=== PATIENT | male | born 1960 | race Two or more races ===

== ENCOUNTER 2016-10-19 05:10 | Emergency (ER) | payer MEDICARE ==
[~2016-10-19] VITALS: Ht 175.3 cm; Wt 104.3 kg
[~2016-10-19 05:10] MED LIST: 1ST CHOICE LAN1 EACH MC; ACCU-CHEK COMB1 EACH MC; ACCU-CHEK1 EAC5 MC; ANTI-ITCH56 GM CUTAN; ASPIRIN81 MG ORAL; BACITRACIN1 APPLIC TOPIC; IBUPROFEN600 MG ORAL; KEFLEX500 MG ORAL; METFORMIN HCL1000 M1 ORAL; METFORMIN HCL500 M1 ORAL; NORCO 5-325 TA1 EAC1 ORAL; NOVOLIN 70/305 UNIT1 SUBQ; NOVOLOG100 UNIT/3; PEPCID20 MG ORAL; PERCOCET 5-3251 EACH ORAL; TRAMADOL HCL50 MG ORAL
--- NOTE | 2016-10-19 05:36 | Emergency Room Report ---
History of Present Illness General Chief Complaint: Abdominal Pain Source: Patient Present Illness HPI Is a 56-year-old male with history of diabetes. He presents with chief complaint abdominal pain. Does have vomiting and diarrhea. Pain localized to the bilateral flanks. No urinary complaint. No fever or chills. Onset for 2 days. Pain is 7/10. He also has fever or chills. Similar symptom in the past. No other complaint. Allergies: Coded Allergies: No Known Allergies (Verified Allergy, Unknown, 05/12/11) Patient History Past Medical History: see triage record, old chart reviewed, DM Past Surgical History: other Pertinent Family History: none Social History: Denies: smoking Immunizations: other Reviewed Nursing Documentation: PMH: Agreed, PSxH: Agreed Nursing Documentation-PMH Hx Hypertension: Yes Hx Diabetes: Yes Hx Cancer: No Hx Gastrointestinal Problems: No Hx Neurological Problems: Yes Hx Dizziness: Yes Hx Headaches: Yes Review of Systems Eye: Denies: blurred vision, eye pain ENT: Denies: ear pain, nose congestion, throat swelling Respiratory: Denies: cough, shortness of breath Cardiovascular: Denies: chest pain, palpitations Gastrointestinal: Reports: abdominal pain, diarrhea, nausea, vomiting Musculoskeletal: Denies: back pain, joint pain Skin: Denies: rash Neurological: Denies: headache, numbness Endocrine: Denies: increased thirst, increased urine Hematologic/Lymphatic: Denies: easy bruising All Other Systems: negative except mentioned in HPI Physical Exam Vital Signs Date Time Temp Pulse Resp B/P Pulse Ox O2 Delivery O2 Flow Rate FiO2 10/19/16 05:11 98.1 93 18 120/74 98 Room Air vitals normal Sp02 EP Interpretation: reviewed, normal General Appearance: well appearing, no apparent distress, alert Head: normocephalic, atraumatic Eyes: bilateral eye EOMI, bilateral eye PERRL ENT: hearing grossly normal, normal pharynx Neck: full range of motion, supple, no meningismus Respiratory: chest non-tender, lungs clear, normal breath sounds Cardiovascular #1: regular rate, rhythm, no murmur Gastrointestinal: normal bowel sounds, no mass, no organomegaly, no bruit, non- distended, tenderness - Diffuse Musculoskeletal: back normal, gait/station normal, normal range of motion Neurologic: alert, oriented x3 Psychiatric: mood/affect normal Skin: warm/dry Medical Decision Making Diagnostic Impression: Primary Impression: Abdominal pain of unknown etiology Additional Impression: Hyperglycemia due to type 2 diabetes mellitus Qualified Codes: E11.65 - Type 2 diabetes mellitus with hyperglycemia; Z79.4 - jail (current) use of insulin ER Course Patient presents with abdominal pain. CT scan unremarkable. Blood sugars under control but not in DKA. Insulin given here. We'll discharge home. He felt better now. Lab Results Impression labs show elevated glucose CT/MRI/US Diagnostic Results CT/MRI/US Diagnostic Results : Imaging Test Ordered: CT abdomen and pelvis Impression no acute process per radiologist Last Vital Signs Date Time Temp Pulse Resp B/P Pulse Ox O2 Delivery O2 Flow Rate FiO2 10/19/16 05:11 98.1 93 18 120/74 98 Room Air Status: improved Disposition: HOME, SELF-CARE Condition: Stable Scripts Ibuprofen* (MOTRIN*) 600 Mg Tablet 600 MG ORAL THREE TIMES A DAY, #30 TAB 0 Refills Prov: MARSHA DURON M.D. 10/19/16 Patient Instructions: Abdominal Pain, Adult Additional Instructions: Followup with your DrStefania in 2-3 days. Take your medication for diabetes. Return if worse. MARSHA DURON M.D. Oct 19, 2016 05:36
[2016-10-19] MEDS ORDERED: Ketorolac 30mg Inj IV ONE (05:45)
[2016-10-19 06:14] LABS: BASOPHILS % (AUTO) 1.6 % (0.0-2.0); EOSINOPHILS % (AUTO) 1.6 % (0.0-3.0); LYMPHOCYTES % (AUTO) 32.4 % (20.0-45.0); MEAN CORPUSCULAR HEMOGLOBIN 32.1 PG (27.0-31.0); MEAN CORPUSCULAR HGB CONC 33.9 G/DL (32.0-36.0); MEAN CORPUSCULAR VOLUME 95 FL (80-99); MEAN PLATELET VOLUME 6.7 FL (6.5-10.1); MONOCYTES % (AUTO) 7.6 % (1.0-10.0); NEUTROPHILS % (AUTO) 56.8 % (45.0-75.0); PLATELET COUNT 219 K/UL (150-450); RED BLOOD COUNT 4.84 M/UL (4.70-6.10); RED CELL DISTRIBUTION WIDTH 10.9 % (11.6-14.8); WHITE BLOOD COUNT 7.8 K/UL (4.8-10.8)
[2016-10-19 06:25] LABS: ALANINE AMINOTRANSFERASE 13 U/L (3-41); ALBUMIN/GLOBULIN RATIO 1.4 (1.0-2.7); ANION GAP 13 (5-15); ASPARTATE AMINO TRANSFERASE 11 U/L (5-40); CALCIUM 9.2 mg/dL (8.6-10.2); CARBON DIOXIDE 23 mEQ/L (20-30); CHLORIDE 103 mEQ/L (98-107); CREATININE 0.8 mg/dL (0.7-1.2); GLOMERULAR FILTRATION RATE > 60 mL/min (>60); HEMOLYSIS 11; LIPASE 54 U/L (< 60); SODIUM 139 mEQ/L (135-145); TOTAL PROTEIN 6.8 g/dL (6.6-8.7)
[2016-10-19] MEDS ORDERED: IBUPROFEN600 MG ORAL (06:46)
[2016-10-19 06:52] VITALS: BP 122/76
--- NOTE | 2016-10-19 08:27 | Diagnostic Imaging Report ---
Indications: ./Flank pain Technique: Continuous helical CT imaging of the abdomen and pelvis was performed with automatic exposure control on a Siemens sensation [address] scanner. Axial, coronal, and sagittal images were reconstructed at 3 mm slice thickness. No oral or IV contrast was administered per protocol. CTDI volume(s): 19 mGy Total DLP: 1122 mGy-cm Findings: Comparison: April CT scan of the abdomen and pelvis 05/12/2011. Kidneys, ureters, urinary bladder demonstrate no intraparenchymal or intraluminal stones, collecting system or ureteral dilation, perinephric or periureteral stranding. Appendix not identified. Surgical clips adjacent to cecal tip.. The gastrointestinal tract is normal in caliber. No extraluminal gas or fluid collections are demonstrated. Scattered arterial mural calcifications. Vascular patency indeterminate. Remainder of visualized abdominopelvic anatomy demonstrates no other obvious abnormality, though lack of oral and IV contrast limits evaluation. No increased interstitial markings and dependent portions of both lung bases. Heart enlarged. Mild disc space narrowing with marginal osteophyte formation lumbar, lower thoracic spine.. IMPRESSION: No evidence of renal or ureteral stone, hydronephrosis or hydroureter. Evidence of previous appendectomy. No other evidence of acute abdominopelvic disease. Lack of oral and IV contrast limits evaluation, however, and subtle but potentially significant abnormalities may be missed. Repeat CT scan with full oral and IV contrast preparation recommended for more complete evaluation, as clinically indicated. Arteriosclerosis Pulmonary bibasal interstitial prominence, nonspecific, may be compressive Cardiomegaly Degenerative spondylosis Written preliminary report placed in PACS 10/19/2016 at [address] scanner at [facility] is accredited by the [employer] and the scans are performed using protocols designed to limit radiation exposure to as low as reasonably achievable to attain images of sufficient resolution adequate for diagnostic evaluation.
== END 2016-10-19 06:52 | disposition home or self-care (01) ==
LOC: EMR 05:34
DX: R10.9 Unspecified abdominal pain (principal); E11.65 Type 2 diabetes mellitus with hyperglycemia; I10 Essential (primary) hypertension
CPT/HCPCS: 36415; 74176; 80053; 83690; 85025; 96361; 96374; 96375; 99284; J1885; J2405

== ENCOUNTER 2018-01-09 16:31 | Inpatient (IN) | payer MEDICARE ==
[~2018-01-09] VITALS: Ht 175.3 cm; Wt 96.2 kg
[2018-01-09 17:37] LABS: BASOPHILS % (AUTO) 2.2 % (0.0-2.0); HEMATOCRIT 45.2 % (42.0-52.0); LYMPHOCYTES % (AUTO) 29.7 % (20.0-45.0); MEAN CORPUSCULAR VOLUME 92 FL (80-99); MONOCYTES % (AUTO) 7.4 % (1.0-10.0); NEUTROPHILS % (AUTO) 58.8 % (45.0-75.0); PLATELET COUNT 235 K/UL (150-450); RED BLOOD COUNT 4.92 M/UL (4.70-6.10); RED CELL DISTRIBUTION WIDTH 10.3 % (11.6-14.8); WHITE BLOOD COUNT 7.2 K/UL (4.8-10.8)
[2018-01-09 17:42] VITALS: BP 126/90
[2018-01-09 17:47] LABS: ANION GAP 6 mmol/L (5-15); BLOOD UREA NITROGEN 12 mg/dL (7-18); CALCIUM 8.8 MG/DL (8.5-10.1); CARBON DIOXIDE 30 MMOL/L (21-32); CHLORIDE 101 MMOL/L (98-107); CREATININE 0.9 MG/DL (0.55-1.30); POTASSIUM 4.1 MMOL/L (3.5-5.1); SODIUM 137 MMOL/L (136-145)
[2018-01-09] MEDS ORDERED: Ketorolac 30mg Inj IV ONE (18:00)
[2018-01-09 18:02] LABS: ALANINE AMINOTRANSFERASE 25 U/L (12-78); ALBUMIN 3.8 G/DL (3.4-5.0); ALKALINE PHOSPHATASE 84 U/L (46-116); ASPARTATE AMINO TRANSFERASE 11 U/L (15-37); BILIRUBIN,TOTAL 0.5 MG/DL (0.2-1.0); CREATINE KINASE 72 U/L (26-308)
[2018-01-09 18:17] LABS: APPEARANCE,URINE CLEAR; BILIRUBIN, URINE NEGATIVE (NEGATIVE); COLOR,URINE PALE YELLOW; GLUCOSE, URINE (UA) 4+ (NEGATIVE); KETONES,URINE NEGATIVE (NEGATIVE); LEUKOCYTE ESTERASE ,URINE NEGATIVE (NEGATIVE); NITRITE,URINE NEGATIVE (NEGATIVE); PH,URINE 7 (4.5-8.0); PROTEIN,URINE NEGATIVE (NEGATIVE); UROBILINOGEN,URINE NORMAL MG/DL (0.0-1.0)
[2018-01-09] MEDS ORDERED: Miralax 17gm pkt ORAL PRN (19:30)
[2018-01-09] MEDS ORDERED: Nitroglycerin Subl 0.4mg tab SL PRN (19:30)
[2018-01-09] MEDS ORDERED: Albuterol/Ipratropium 3ml neb HHN PRN (19:30)
[2018-01-09 19:50] VITALS: BP 159/61
--- NOTE | 2018-01-09 19:55 | Emergency Room Report ---
History of Present Illness General Chief Complaint: General Complaint Source: Patient Present Illness HPI Patient is a 57-year-old male who presented after increased lower extremity discomfort. Patient reports having increased pain to his left great toe. Patient prior history of diabetes. He was noted to have a markedly elevated blood sugar. Patient states that he had been not having any fever. He had intermittent chest discomfort which did not radiate. Patient was having increased swelling to his left lower extremity. He is a type II diabetic. Patient denies any recent fever. He denies other locations of discomfort this time. Allergies: Coded Allergies: No Known Allergies (Verified Allergy, Unknown, 05/12/11) Patient History Past Medical History: see triage record Reviewed Nursing Documentation: PMH: Agreed; PSxH: Agreed Nursing Documentation-PMH Hx Hypertension: Yes Hx Diabetes: Yes Hx Cancer: No Hx Gastrointestinal Problems: No Hx Neurological Problems: Yes Hx Dizziness: Yes Hx Headaches: Yes Review of Systems All Other Systems: negative except mentioned in HPI Physical Exam Vital Signs Date Time Temp Pulse Resp B/P (MAP) Pulse Ox O2 Delivery O2 Flow Rate FiO2 01/09/18 16:36 98.2 89 18 138/90 97 Room Air 98.2 Sp02 EP Interpretation: reviewed, normal General Appearance: normal inspection, well appearing, no apparent distress, alert, GCS 15, non-toxic Head: atraumatic ENT: normal ENT inspection, hearing grossly normal, normal voice Neck: normal inspection, full range of motion, supple, no bony tend Respiratory: normal inspection, lungs clear, normal breath sounds, no respiratory distress, no retraction, no wheezing Cardiovascular #1: regular rate, rhythm, no edema Gastrointestinal: normal inspection, normal bowel sounds, non tender, soft, no guarding, no hernia Genitourinary: no CVA tenderness Musculoskeletal: normal inspection, back normal, normal range of motion Neurologic: normal inspection, alert, oriented x3, responsive, retirement plan counselor III-XII nml as tested, speech normal Psychiatric: normal inspection, judgement/insight normal, mood/affect normal Skin: normal inspection, normal color, no rash Medical Decision Making Diagnostic Impression: Primary Impression: Hyperglycemia Additional Impression: Foot infection ER Course Patient presented for foot pain. Differential diagnoses include was was not limited to cellulitis, foreign body, fracture, plantar fasciitis, vascular insufficiency, sprain. Because of complexity of patient's case laboratory testing and imaging studies were ordered.X-ray imaging of the left foot 3 views interpreted by me showed normal bony alignment without evident fracture or dislocation.Chest x-ray one view interpreted by me indication pain showed normal cardiac size without evident infiltrate normal mediastinum no evident pneumothorax.The patient was discussed with Dr. Lieberman for admission due to covering physician Labs Test 01/09/18 17:00 01/09/18 17:20 01/09/18 17:50 White Blood Count 7.2 K/UL (4.8-10.8) Red Blood Count 4.92 M/UL (4.70-6.10) Hemoglobin 16.0 G/DL (14.2-18.0) Hematocrit 45.2 % (42.0-52.0) Mean Corpuscular Volume 92 FL (80-99) Mean Corpuscular Hemoglobin 32.5 PG (27.0-31.0) Mean Corpuscular Hemoglobin Concent 35.4 G/DL (32.0-36.0) Red Cell Distribution Width 10.3 % (11.6-14.8) Platelet Count 235 K/UL (150-450) Mean Platelet Volume 7.1 FL (6.5-10.1) Neutrophils (%) (Auto) 58.8 % (45.0-75.0) Lymphocytes (%) (Auto) 29.7 % (20.0-45.0) Monocytes (%) (Auto) 7.4 % (1.0-10.0) Eosinophils (%) (Auto) 2.0 % (0.0-3.0) Basophils (%) (Auto) 2.2 % (0.0-2.0) Sodium Level 137 MMOL/L (136-145) Potassium Level 4.1 MMOL/L (3.5-5.1) Chloride Level 101 MMOL/L (98-107) Carbon Dioxide Level 30 MMOL/L (21-32) Anion Gap 6 mmol/L (5-15) Blood Urea Nitrogen 12 mg/dL (7-18) Creatinine 0.9 MG/DL (0.55-1.30) Estimat Glomerular Filtration Rate > 60 mL/min (>60) Glucose Level 381 MG/DL (74-106) Uric Acid 3.7 MG/DL (2.6-7.2) Calcium Level 8.8 MG/DL (8.5-10.1) Total Bilirubin 0.5 MG/DL (0.2-1.0) Aspartate Amino Transf (AST/SGOT) 11 U/L (15-37) Alanine Aminotransferase (ALT/SGPT) 25 U/L (12-78) Alkaline Phosphatase 84 U/L (46-116) Total Creatine Kinase 72 U/L (26-308) Creatine Kinase MB 1.0 NG/ML (0.0-3.6) Creatine Kinase MB Relative Index 1.3 Troponin I 0.000 ng/mL (0.000-0.056) Pro-B-Type Natriuretic Peptide 20 pg/mL (0-125) Total Protein 7.7 G/DL (6.4-8.2) Albumin 3.8 G/DL (3.4-5.0) Globulin 3.9 g/dL Albumin/Globulin Ratio 1.0 (1.0-2.7) Lactic Acid Level 1.80 mmol/L (0.66-2.22) Urine Color Pale yellow Urine Appearance Clear Urine pH 7 (4.5-8.0) Urine Specific [place] 1.005 (1.005-1.035) Urine Protein Negative (NEGATIVE) Urine Glucose (UA) 4+ (NEGATIVE) Urine Ketones Negative (NEGATIVE) Urine Occult Blood Negative (NEGATIVE) Urine Nitrite Negative (NEGATIVE) Urine Bilirubin Negative (NEGATIVE) Urine Urobilinogen Normal MG/DL (0.0-1.0) Urine Leukocyte Esterase Negative (NEGATIVE) EKG Diagnostic Results Rate: normal Rhythm: NSR ST Segments: no acute changes Rhythm Strip Diag. Results EP Interpretation: yes Rhythm: NSR, no PVC's, no ectopy, other - jpoint elevation Last Vital Signs Date Time Temp Pulse Resp B/P (MAP) Pulse Ox O2 Delivery O2 Flow Rate FiO2 01/09/18 18:01 98.2 01/09/18 17:42 61 18 126/90 97 Room Air Status: unchanged Disposition: ADMITTED INPATIENT Condition: Serious Referrals: NON PHYSICIAN (PCP) Laurent Johnston January 09, 2018 19:55
[2018-01-09] MEDS: Heparin 5000 units/ml inj SUBQ SCH (21:00)
[2018-01-09] MEDS: NovoLOG Insulin Flexpen SUBQ SCH (21:46)
[2018-01-09] MEDS: Cefepime HCl 2 GM in D5W 110 ML IV SCH (21:48)
[2018-01-09] MEDS: Vancomycin 1.5 GM/D5W 250ML IVPB SCH (22:35)
[2018-01-10] VITALS: BP 122/74
[2018-01-10] MEDS ORDERED: Vancomycin 1 GM in D5W 275 ML IV SCH (00:30)
[2018-01-10 04:00] VITALS: BP 133/82
[2018-01-10] MEDS: NovoLOG Insulin Flexpen SUBQ SCH ×6 (06:42→21:00)
[2018-01-10 08:00] VITALS: BP 119/76
[2018-01-10 08:02] LABS: BASOPHILS % (AUTO) 1.5 % (0.0-2.0); EOSINOPHILS % (AUTO) 2.8 % (0.0-3.0); HEMATOCRIT 42.6 % (42.0-52.0); HEMOGLOBIN 15.6 G/DL (14.2-18.0); LYMPHOCYTES % (AUTO) 34.2 % (20.0-45.0); MEAN CORPUSCULAR VOLUME 92 FL (80-99); MONOCYTES % (AUTO) 7.1 % (1.0-10.0); NEUTROPHILS % (AUTO) 54.5 % (45.0-75.0); PLATELET COUNT 218 K/UL (150-450); RED BLOOD COUNT 4.65 M/UL (4.70-6.10); RED CELL DISTRIBUTION WIDTH 10.2 % (11.6-14.8); WHITE BLOOD COUNT 6.4 K/UL (4.8-10.8)
[2018-01-10 08:19] LABS: ALANINE AMINOTRANSFERASE 22 U/L (12-78); ALBUMIN 3.4 G/DL (3.4-5.0); ALKALINE PHOSPHATASE 74 U/L (46-116); ANION GAP 6 mmol/L (5-15); ASPARTATE AMINO TRANSFERASE 9 U/L (15-37); BILIRUBIN,TOTAL 0.9 MG/DL (0.2-1.0); BLOOD UREA NITROGEN 11 mg/dL (7-18); CALCIUM 8.8 MG/DL (8.5-10.1); CARBON DIOXIDE 28 MMOL/L (21-32); CHLORIDE 105 MMOL/L (98-107); CREATININE 0.8 MG/DL (0.55-1.30); POTASSIUM 4.4 MMOL/L (3.5-5.1); SODIUM 139 MMOL/L (136-145)
[2018-01-10] MEDS ORDERED: Levemir Flexpen SUBQ SCH (09:00)
[2018-01-10] MEDS: Cefepime HCl 2 GM in D5W 110 ML IV SCH (09:18)
[2018-01-10] MEDS: Aspirin Baby 81mg ORAL SCH (09:20)
[2018-01-10] MEDS: Heparin 5000 units/ml inj SUBQ SCH ×2 (09:21→21:01)
[2018-01-10 12:00] VITALS: BP 133/80
[2018-01-10] MEDS: Vancomycin 1.5 GM/D5W 250ML IVPB SCH ×2 (12:11→21:55)
--- NOTE | 2018-01-10 12:12 | History & Physical ---
History and Physical History & Physicial Dictated for Int Med-Dr Lieberman no. [id number]. IRON ARSHAD January 10, 2018 12:12
[2018-01-10] MEDS: metFORMIN 500mg tab ORAL SCH ×2 (12:27→17:29)
--- NOTE | 2018-01-10 12:29 | Consultation ---
History of Present Illness General Date patient seen: January 10, 2018 Chief Complaint: General Complaint Reason for Consultation: chest pain Present Illness HPI 57-year-old male with hx of HTN, DM, diabetic neuropathy who presented after increased lower extremity discomfort with pain to his left great toe. He had a markedly elevated blood sugar. He had intermittent chest discomfort which did not radiate. He is admitted to telemetry for further work up. Allergies: Coded Allergies: No Known Allergies (Verified Allergy, Unknown, 05/12/11) Medication History Scheduled Aspirin* (Aspirin*), 81 MG ORAL DAILY, (Reported) Bacitracin (Bacitracin Zinc), 1 APPLIC TOPIC BID Famotidine (Pepcid), 20 MG ORAL DAILY Hydrocortisone 2% Cream (Anti-Itch 2% Cream), 1 APPLIC CUTAN BID Ibuprofen* (Motrin*), 600 MG ORAL THREE TIMES A DAY Metformin Hcl* (Metformin Hcl*), 1,000 MG ORAL BID, (Reported) Metformin Hcl* (Metformin Hcl*), 1,000 MG ORAL EVERY 12 HOURS, (Reported) Scheduled PRN Tramadol Hcl* (Ultram*), 50 MG ORAL Q6H PRN for For Pain Miscellaneous Medications Insulin Aspart* (Novolog*), 0 .ROUTE, (Reported) Durable Medical Equipment Blood-Glucose Meter, Drum-Type (Accu-Chek), 1 EACH MC BID, (DME) Lancets (1ST Choice Lancets), 1 EACH MC NEEDED, (DME) Patient History Healthcare decision maker Resuscitation status Full Code Advanced Directive on File Past Medical/Surgical History Past Medical/Surgical History: (1) Uncontrolled diabetes mellitus (2) Chest pain (3) Ulcer of toe due to diabetes (4) Tinnitus Review of Systems All Other Systems: negative except mentioned in HPI Physical Exam General Appearance: WD/WN, no apparent distress Lines, tubes and drains: peripheral HEENT: normocephalic, atraumatic Neck: non-tender, normal alignment Respiratory/Chest: chest wall non-tender, lungs clear Breasts: no masses Cardiovascular/Chest: normal peripheral pulses Abdomen: normal bowel sounds, non tender Genitourinary/Rectal: normal genital exam Extremities: normal range of motion Skin Exam: normal pigmentation Neurologic: supervisor composing room II-XII grossly normal Lymphatic: anterior cervical Last 24 Hour Vital Signs Date Time Temp Pulse Resp B/P (MAP) Pulse Ox O2 Delivery O2 Flow Rate FiO2 5/2/18 08:03 79 16 Room Air 21 01/10/18 04:00 97.4 72 19 133/82 96 Room Air 97.4 01/10/18 04:00 68 01/10/18 01:13 98.4 01/10/18 00:14 98.4 01/10/18 00:00 97.5 73 19 122/74 97 Room Air 97.5 01/10/18 00:00 81 01/09/18 21:00 77 01/09/18 20:41 98.4 65 18 159/61 97 Room Air 208.8 01/09/18 19:50 208.8 65 18 159/61 97 Room Air 208.8 01/09/18 18:01 98.2 01/09/18 17:42 98.2 61 18 126/90 97 Room Air 98.2 01/09/18 16:36 98.2 89 18 138/90 97 Room Air 98.2 Intake and Output 01/09/18 01/10/18 19:00 07:00 Intake Total 0 ml Output Total 700 ml Balance 0 ml -700 ml Intake Oral 0 ml Output Urine Total 700 ml # Voids 1 1 Laboratory Tests Test 01/09/18 17:00 01/09/18 17:20 01/09/18 17:50 01/10/18 06:50 White Blood Count 7.2 K/UL (4.8-10.8) 6.4 K/UL (4.8-10.8) Red Blood Count 4.92 M/UL (4.70-6.10) 4.65 M/UL (4.70-6.10) L Hemoglobin 16.0 G/DL (14.2-18.0) 15.6 G/DL (14.2-18.0) Hematocrit 45.2 % (42.0-52.0) 42.6 % (42.0-52.0) Mean Corpuscular Volume 92 FL (80-99) 92 FL (80-99) Mean Corpuscular Hemoglobin 32.5 PG (27.0-31.0) H 33.5 PG (27.0-31.0) H Mean Corpuscular Hemoglobin Concent 35.4 G/DL (32.0-36.0) 36.5 G/DL (32.0-36.0) H Red Cell Distribution Width 10.3 % (11.6-14.8) L 10.2 % (11.6-14.8) L Platelet Count 235 K/UL (150-450) 218 K/UL (150-450) Mean Platelet Volume 7.1 FL (6.5-10.1) 7.7 FL (6.5-10.1) Neutrophils (%) (Auto) 58.8 % (45.0-75.0) 54.5 % (45.0-75.0) Lymphocytes (%) (Auto) 29.7 % (20.0-45.0) 34.2 % (20.0-45.0) Monocytes (%) (Auto) 7.4 % (1.0-10.0) 7.1 % (1.0-10.0) Eosinophils (%) (Auto) 2.0 % (0.0-3.0) 2.8 % (0.0-3.0) Basophils (%) (Auto) 2.2 % (0.0-2.0) H 1.5 % (0.0-2.0) Sodium Level 137 MMOL/L (136-145) 139 MMOL/L (136-145) Potassium Level 4.1 MMOL/L (3.5-5.1) 4.4 MMOL/L (3.5-5.1) Chloride Level 101 MMOL/L (98-107) 105 MMOL/L (98-107) Carbon Dioxide Level 30 MMOL/L (21-32) 28 MMOL/L (21-32) Anion Gap 6 mmol/L (5-15) 6 mmol/L (5-15) Blood Urea Nitrogen 12 mg/dL (7-18) 11 mg/dL (7-18) Creatinine 0.9 MG/DL (0.55-1.30) 0.8 MG/DL (0.55-1.30) Estimat Glomerular Filtration Rate > 60 mL/min (>60) > 60 mL/min (>60) Glucose Level 381 MG/DL (74-106) H 296 MG/DL (74-106) H Uric Acid 3.7 MG/DL (2.6-7.2) Calcium Level 8.8 MG/DL (8.5-10.1) 8.8 MG/DL (8.5-10.1) Total Bilirubin 0.5 MG/DL (0.2-1.0) 0.9 MG/DL (0.2-1.0) Aspartate Amino Transf (AST/SGOT) 11 U/L (15-37) L 9 U/L (15-37) L Alanine Aminotransferase (ALT/SGPT) 25 U/L (12-78) 22 U/L (12-78) Alkaline Phosphatase 84 U/L (46-116) 74 U/L (46-116) Total Creatine Kinase 72 U/L (26-308) Creatine Kinase MB 1.0 NG/ML (0.0-3.6) Creatine Kinase MB Relative Index 1.3 Troponin I 0.000 ng/mL (0.000-0.056) Pending Pro-B-Type Natriuretic Peptide 20 pg/mL (0-125) Total Protein 7.7 G/DL (6.4-8.2) 6.9 G/DL (6.4-8.2) Albumin 3.8 G/DL (3.4-5.0) 3.4 G/DL (3.4-5.0) Globulin 3.9 g/dL 3.5 g/dL Albumin/Globulin Ratio 1.0 (1.0-2.7) 1.0 (1.0-2.7) Lactic Acid Level 1.80 mmol/L (0.66-2.22) Urine Color Pale yellow Urine Appearance Clear Urine pH 7 (4.5-8.0) Urine Specific [place] 1.005 (1.005-1.035) Urine Protein Negative (NEGATIVE) Urine Glucose (UA) 4+ (NEGATIVE) H Urine Ketones Negative (NEGATIVE) Urine Occult Blood Negative (NEGATIVE) Urine Nitrite Negative (NEGATIVE) Urine Bilirubin Negative (NEGATIVE) Urine Urobilinogen Normal MG/DL (0.0-1.0) Urine Leukocyte Esterase Negative (NEGATIVE) Hemoglobin A1c 10.1 % (4.3-6.0) H Height (Feet): 5 Height (Inches): 9.00 Weight (Pounds): 212 Medications Current Medications Medications (Trade) Dose Ordered Sig/Dixie Route PRN Reason Start Time Stop Time Status Last Admin Dose Admin Acetaminophen (Tylenol) 650 mg Q4H PRN ORAL Mild Pain/Temp > 100.5 5/2/18 03:30 02/08/18 19:29 01/10/18 00:14 Albuterol/ Ipratropium (Albuterol/ Ipratropium) 3 ml EVERY 4 HOURS PRN HHN Shortness of Breath 01/09/18 19:30 01/14/18 19:29 Aspirin (ASA) 81 mg DAILY ORAL 01/10/18 09:00 02/09/18 08:59 01/10/18 09:20 Cefepime HCl 2 gm/ Dextrose 110 ml @ 220 mls/hr EVERY 12 HOURS IV 01/09/18 21:00 01/16/18 20:59 01/10/18 09:18 Dextrose (Dextrose 50%) 25 ml STAT PRN IV Hypoglycemia 01/10/18 07:15 02/09/18 07:14 Dextrose (Dextrose 50%) 50 ml STAT PRN IV Hypoglycemia 01/10/18 07:15 02/09/18 07:14 Famotidine (Pepcid) 20 mg DAILY ORAL 01/10/18 09:00 02/09/18 08:59 01/10/18 09:19 Heparin Sodium (Porcine) (Heparin 5000 units/ml) 5,000 units EVERY 12 HOURS SUBQ 01/09/18 21:00 02/08/18 20:59 01/10/18 09:21 Insulin Aspart (NovoLOG) BEFORE MEALS AND HS SUBQ 01/09/18 21:00 02/08/18 20:59 01/10/18 06:42 Insulin Aspart (NovoLOG) 6 units NOVOTIAC SUBQ 01/10/18 11:50 02/09/18 11:49 Insulin Detemir (Levemir) 18 units DAILY SUBQ 01/10/18 09:00 02/09/18 08:59 01/10/18 09:22 Metformin HCl (Glucophage) 500 mg TIAC ORAL 01/10/18 11:30 02/09/18 11:29 Nitroglycerin (Ntg) 0.4 mg Q 5 MINS PRN SL Prn Chest Pain 01/09/18 19:30 02/08/18 19:29 Ondansetron HCl (Zofran) 4 mg Q6H PRN IVP Nausea & Vomiting 01/09/18 19:30 02/08/18 19:29 Polyethylene Glycol (Miralax) 17 gm DAILYPRN PRN ORAL Constipation 01/09/18 19:30 02/08/18 19:29 Temazepam (Restoril) 15 mg HSPRN PRN ORAL Insomnia 01/09/18 19:30 01/16/18 19:29 Vancomycin HCl/ Dextrose 250 ml @ 125 mls/hr Q12H IVPB 01/09/18 22:00 01/14/18 21:59 01/10/18 12:11 Assessment/Plan Problem List: (1) Chest pain ICD Codes: R07.9 - Chest pain, unspecified SNOMED: 17941948 (2) Ulcer of toe due to diabetes ICD Codes: E11.621 - Type 2 diabetes mellitus with foot ulcer; L97.509 - Non- pressure chronic ulcer of other part of unspecified foot with unspecified severity SNOMED: 72796860, 084084450, 207899308 (3) Uncontrolled diabetes mellitus ICD Codes: E11.65 - Type 2 diabetes mellitus with hyperglycemia SNOMED: 76165567, 515047018 Assessment/Plan serial ekg, troponin, echocardiogram low risk for PE wound care podiatry consult symptomatic treatment diabetic diet sliding scale, endo evaluation. Daniela Parra MD January 10, 2018 12:29
--- NOTE | 2018-01-10 12:34 | Cardiac Electrophysiology PN ---
Subjective Subjective [id number] Objective Last 24 Hour Vital Signs Date Time Temp Pulse Resp B/P (MAP) Pulse Ox O2 Delivery O2 Flow Rate FiO2 01/10/18 08:03 79 16 Room Air 21 01/10/18 04:00 97.4 72 19 133/82 96 Room Air 97.4 01/10/18 04:00 68 01/10/18 01:13 98.4 01/10/18 00:14 98.4 01/10/18 00:00 97.5 73 19 122/74 97 Room Air 97.5 01/10/18 00:00 81 01/09/18 21:00 77 01/09/18 20:41 98.4 65 18 159/61 97 Room Air 208.8 01/09/18 19:50 208.8 65 18 159/61 97 Room Air 208.8 01/09/18 18:01 98.2 01/09/18 17:42 98.2 61 18 126/90 97 Room Air 98.2 01/09/18 16:36 98.2 89 18 138/90 97 Room Air 98.2 Intake and Output 01/09/18 01/10/18 19:00 07:00 Intake Total 0 ml Output Total 700 ml Balance 0 ml -700 ml Intake Oral 0 ml Output Urine Total 700 ml # Voids 1 1 Laboratory Tests Test 01/09/18 17:00 01/09/18 17:20 01/09/18 17:50 01/10/18 06:50 White Blood Count 7.2 K/UL (4.8-10.8) 6.4 K/UL (4.8-10.8) Red Blood Count 4.92 M/UL (4.70-6.10) 4.65 M/UL (4.70-6.10) L Hemoglobin 16.0 G/DL (14.2-18.0) 15.6 G/DL (14.2-18.0) Hematocrit 45.2 % (42.0-52.0) 42.6 % (42.0-52.0) Mean Corpuscular Volume 92 FL (80-99) 92 FL (80-99) Mean Corpuscular Hemoglobin 32.5 PG (27.0-31.0) H 33.5 PG (27.0-31.0) H Mean Corpuscular Hemoglobin Concent 35.4 G/DL (32.0-36.0) 36.5 G/DL (32.0-36.0) H Red Cell Distribution Width 10.3 % (11.6-14.8) L 10.2 % (11.6-14.8) L Platelet Count 235 K/UL (150-450) 218 K/UL (150-450) Mean Platelet Volume 7.1 FL (6.5-10.1) 7.7 FL (6.5-10.1) Neutrophils (%) (Auto) 58.8 % (45.0-75.0) 54.5 % (45.0-75.0) Lymphocytes (%) (Auto) 29.7 % (20.0-45.0) 34.2 % (20.0-45.0) Monocytes (%) (Auto) 7.4 % (1.0-10.0) 7.1 % (1.0-10.0) Eosinophils (%) (Auto) 2.0 % (0.0-3.0) 2.8 % (0.0-3.0) Basophils (%) (Auto) 2.2 % (0.0-2.0) H 1.5 % (0.0-2.0) Sodium Level 137 MMOL/L (136-145) 139 MMOL/L (136-145) Potassium Level 4.1 MMOL/L (3.5-5.1) 4.4 MMOL/L (3.5-5.1) Chloride Level 101 MMOL/L (98-107) 105 MMOL/L (98-107) Carbon Dioxide Level 30 MMOL/L (21-32) 28 MMOL/L (21-32) Anion Gap 6 mmol/L (5-15) 6 mmol/L (5-15) Blood Urea Nitrogen 12 mg/dL (7-18) 11 mg/dL (7-18) Creatinine 0.9 MG/DL (0.55-1.30) 0.8 MG/DL (0.55-1.30) Estimat Glomerular Filtration Rate > 60 mL/min (>60) > 60 mL/min (>60) Glucose Level 381 MG/DL (74-106) H 296 MG/DL (74-106) H Uric Acid 3.7 MG/DL (2.6-7.2) Calcium Level 8.8 MG/DL (8.5-10.1) 8.8 MG/DL (8.5-10.1) Total Bilirubin 0.5 MG/DL (0.2-1.0) 0.9 MG/DL (0.2-1.0) Aspartate Amino Transf (AST/SGOT) 11 U/L (15-37) L 9 U/L (15-37) L Alanine Aminotransferase (ALT/SGPT) 25 U/L (12-78) 22 U/L (12-78) Alkaline Phosphatase 84 U/L (46-116) 74 U/L (46-116) Total Creatine Kinase 72 U/L (26-308) Creatine Kinase MB 1.0 NG/ML (0.0-3.6) Creatine Kinase MB Relative Index 1.3 Troponin I 0.000 ng/mL (0.000-0.056) Pending Pro-B-Type Natriuretic Peptide 20 pg/mL (0-125) Total Protein 7.7 G/DL (6.4-8.2) 6.9 G/DL (6.4-8.2) Albumin 3.8 G/DL (3.4-5.0) 3.4 G/DL (3.4-5.0) Globulin 3.9 g/dL 3.5 g/dL Albumin/Globulin Ratio 1.0 (1.0-2.7) 1.0 (1.0-2.7) Lactic Acid Level 1.80 mmol/L (0.66-2.22) Urine Color Pale yellow Urine Appearance Clear Urine pH 7 (4.5-8.0) Urine Specific [place] 1.005 (1.005-1.035) Urine Protein Negative (NEGATIVE) Urine Glucose (UA) 4+ (NEGATIVE) H Urine Ketones Negative (NEGATIVE) Urine Occult Blood Negative (NEGATIVE) Urine Nitrite Negative (NEGATIVE) Urine Bilirubin Negative (NEGATIVE) Urine Urobilinogen Normal MG/DL (0.0-1.0) Urine Leukocyte Esterase Negative (NEGATIVE) Hemoglobin A1c 10.1 % (4.3-6.0) Wyatt Serna MD January 10, 2018 12:34
--- NOTE | 2018-01-10 12:45 | Consultation ---
DATE OF CONSULTATION: 01/10/2018 ENDOCRINOLOGY CONSULTATION REFERRING PHYSICIAN: Des Lieberman M.D. REASON FOR CONSULTATION: Diabetes management. HISTORY OF PRESENT ILLNESS: The patient is a 57-year-old male with history of diabetes on metformin therapy as an outpatient, who presented to the hospital with great toe infection and cellulitis, admitted for observation and treatment. I was called to manage diabetes. PAST MEDICAL HISTORY: 1. Diabetes. 2. GERD. MEDICATIONS: Reviewed and reconciled. SOCIAL HISTORY: Denies any smoking, alcohol, or drug use. FAMILY HISTORY: Diabetes. REVIEW OF SYSTEMS: As per history of present illness. A 12-point of system reviewed. PHYSICAL EXAMINATION: VITAL SIGNS: Blood pressure 132/82, pulse of 72, temperature of 97.4 degrees, and respiratory rate of 19. HEENT: Pupils are equal and reactive to light and accommodation. Sclerae are anicteric. NECK: No JVD. HEART: Regular. LUNGS: Clear. ABDOMEN: Positive bowel sounds. EXTREMITIES: Lower extremities, toe inflamed, nonerythematous. No edema. LABORATORY VALUES: Sodium 137, potassium 4.1, chloride 101, bicarbonate 30, BUN 12, creatinine 0.9, and glucose 381. Lactic acid is normal. WBC 7.2, hemoglobin 16, hematocrit 45.2, and platelets of 235,000. DIAGNOSES: 1. Toe cellulitis. 2. Diabetes, out of control. PLAN: 1. Start metformin 500 mg t.i.d. 2. Start Levemir 18 units daily. 3. Start NovoLog 6 units before each meal. 4. NovoLog sliding scale insulin at bedtime is in order. 5. Check hemoglobin A1c. 6. Further adjustment according to the blood glucose values. 7. I will follow the patient during hospital stay. Thank you, Dr. Lieberman, for the courtesy of this consultation. Francois Jin M.D. DR: Lori JOB#: [id number] CC: BOGDAN
--- NOTE | 2018-01-10 15:31 | Cardiology Report ---
APPROVED REPORT EXAM: Two-dimensional and M-mode echocardiogram with Doppler and color Doppler. INDICATION Chest Pain M-Mode DIMENSIONS IVSd0.7 (0.7-1.1cm)Left Atrium (MM)4.7 (1.6-4.0cm) LVDd3.8 (3.5-5.6cm)Aortic Root3.2 (2.0-3.7cm) PWd1.2 (0.7-1.1cm)Aortic Cusp Exc.2.1 (1.5-2.0cm) LVDs1.8 (2.5-4.0cm) PWs1.4 cm Normal left ventricular chamber size, systolic function and wall motion. Left ventricular ejection fraction estimated to be 60 %. Mild left ventricular hypertrophy by 2-D. No evidence of pericardial effusion. All other cardiac chamber sizes are within normal limits. Focal aortic valve sclerosis with adequate cusp excursion. Thickened mitral valve leaflets with normal excursion. Mitral annulus and aortic root calcification. Normal pulmonic valve structure. Normal tricuspid valve structure. IVC at normal size with physiologic collapse. A color flow and spectral Doppler study was performed and revealed: Trace aortic regurgitation. Trace to mild mitral regurgitation. Mitral diastolic velocities suggest reduced left ventricular relaxation c/w mild LV diastolic dysfunction. Trace to mild tricuspid regurgitation. Tricuspid systolic velocities suggests peak right ventricular systolic pressure of 25 mmHg
--- NOTE | 2018-01-10 15:46 | Cardiology Report ---
APPROVED REPORT EKG Measurement Heart [id number] MA [id number] Normal sinus rhythm ST elevation, consider inferior injury or acute infarct Abnormal ECG
[2018-01-10 16:00] VITALS: BP 122/83
--- NOTE | 2018-01-10 16:23 | Consultation ---
History of Present Illness General Date patient seen: January 10, 2018 Time patient seen: 16:16 Chief Complaint: General Complaint Reason for Consultation: chest pain Present Illness HPI 57 y/o M with hx of DM2 w/ neuropathy, HTN, GERD presents to ED on 01/09 with increasing pain and swelling of L great toe, uncontrolled blood sugar, intermittent non-radiating chest discomfort. referred toe was red and had puruelent drainage but that has now improved significantly after IV abx. no prior hx of toe cellulitis/ulcer or oM Denies fever Allergies: Coded Allergies: No Known Allergies (Verified Allergy, Unknown, 05/12/11) Medication History Scheduled Aspirin* (Aspirin*), 81 MG ORAL DAILY, (Reported) Bacitracin (Bacitracin Zinc), 1 APPLIC TOPIC BID Famotidine (Pepcid), 20 MG ORAL DAILY Hydrocortisone 2% Cream (Anti-Itch 2% Cream), 1 APPLIC CUTAN BID Ibuprofen* (Motrin*), 600 MG ORAL THREE TIMES A DAY Metformin Hcl* (Metformin Hcl*), 1,000 MG ORAL BID, (Reported) Metformin Hcl* (Metformin Hcl*), 1,000 MG ORAL EVERY 12 HOURS, (Reported) Scheduled PRN Tramadol Hcl* (Ultram*), 50 MG ORAL Q6H PRN for For Pain Miscellaneous Medications Insulin Aspart* (Novolog*), 0 .ROUTE, (Reported) Durable Medical Equipment Blood-Glucose Meter, Drum-Type (Accu-Chek), 1 EACH MC BID, (DME) Lancets (1ST Choice Lancets), 1 EACH MC NEEDED, (DME) Patient History Healthcare decision maker Resuscitation status Full Code Advanced Directive on File Patient History Narrative Pmhx: as above Shx: Denies any smoking, alcohol, or drug use. Fhx: non contributory Review of Systems All Other Systems: negative except mentioned in HPI Physical Exam Physical Exam Narrative General Appearance: WD/WN, no apparent distress Lines, tubes and drains: peripheral HEENT: normocephalic, atraumatic Neck: non-tender, normal alignment Respiratory/Chest: chest wall non-tender, lungs clear Cardiovascular/Chest: normal peripheral pulses Abdomen: normal bowel sounds, non tender Genitourinary/Rectal: normal genital exam Extremities: normal range of motion Skin Exam: R 1st toe with callus on dorsal aspect- no currently drainage at this point, no erythema or swelling Last 24 Hour Vital Signs Date Time Temp Pulse Resp B/P (MAP) Pulse Ox O2 Delivery O2 Flow Rate FiO2 01/10/18 16:00 97.3 68 21 122/83 99 Room Air 97.3 01/10/18 12:00 65 01/10/18 12:00 97.9 65 20 133/80 97 Room Air 97.9 01/10/18 08:03 79 16 Room Air 21 01/10/18 08:00 97.5 72 20 119/76 99 Room Air 97.5 01/10/18 08:00 74 01/10/18 04:00 97.4 72 19 133/82 96 Room Air 97.4 01/10/18 04:00 68 01/10/18 01:13 98.4 01/10/18 00:14 98.4 01/10/18 00:00 97.5 73 19 122/74 97 Room Air 97.5 01/10/18 00:00 81 01/09/18 21:00 77 01/09/18 20:41 98.4 65 18 159/61 97 Room Air 208.8 01/09/18 19:50 208.8 65 18 159/61 97 Room Air 208.8 01/09/18 18:01 98.2 01/09/18 17:42 98.2 61 18 126/90 97 Room Air 98.2 01/09/18 16:36 98.2 89 18 138/90 97 Room Air 98.2 Intake and Output 01/09/18 01/10/18 19:00 07:00 Intake Total 0 ml Output Total 700 ml Balance 0 ml -700 ml Intake Oral 0 ml Output Urine Total 700 ml # Voids 1 1 Laboratory Tests Test 01/09/18 17:00 01/09/18 17:20 01/09/18 17:50 01/10/18 06:50 White Blood Count 7.2 K/UL (4.8-10.8) 6.4 K/UL (4.8-10.8) Red Blood Count 4.92 M/UL (4.70-6.10) 4.65 M/UL (4.70-6.10) L Hemoglobin 16.0 G/DL (14.2-18.0) 15.6 G/DL (14.2-18.0) Hematocrit 45.2 % (42.0-52.0) 42.6 % (42.0-52.0) Mean Corpuscular Volume 92 FL (80-99) 92 FL (80-99) Mean Corpuscular Hemoglobin 32.5 PG (27.0-31.0) H 33.5 PG (27.0-31.0) H Mean Corpuscular Hemoglobin Concent 35.4 G/DL (32.0-36.0) 36.5 G/DL (32.0-36.0) H Red Cell Distribution Width 10.3 % (11.6-14.8) L 10.2 % (11.6-14.8) L Platelet Count 235 K/UL (150-450) 218 K/UL (150-450) Mean Platelet Volume 7.1 FL (6.5-10.1) 7.7 FL (6.5-10.1) Neutrophils (%) (Auto) 58.8 % (45.0-75.0) 54.5 % (45.0-75.0) Lymphocytes (%) (Auto) 29.7 % (20.0-45.0) 34.2 % (20.0-45.0) Monocytes (%) (Auto) 7.4 % (1.0-10.0) 7.1 % (1.0-10.0) Eosinophils (%) (Auto) 2.0 % (0.0-3.0) 2.8 % (0.0-3.0) Basophils (%) (Auto) 2.2 % (0.0-2.0) H 1.5 % (0.0-2.0) Sodium Level 137 MMOL/L (136-145) 139 MMOL/L (136-145) Potassium Level 4.1 MMOL/L (3.5-5.1) 4.4 MMOL/L (3.5-5.1) Chloride Level 101 MMOL/L (98-107) 105 MMOL/L (98-107) Carbon Dioxide Level 30 MMOL/L (21-32) 28 MMOL/L (21-32) Anion Gap 6 mmol/L (5-15) 6 mmol/L (5-15) Blood Urea Nitrogen 12 mg/dL (7-18) 11 mg/dL (7-18) Creatinine 0.9 MG/DL (0.55-1.30) 0.8 MG/DL (0.55-1.30) Estimat Glomerular Filtration Rate > 60 mL/min (>60) > 60 mL/min (>60) Glucose Level 381 MG/DL (74-106) H 296 MG/DL (74-106) H Uric Acid 3.7 MG/DL (2.6-7.2) Calcium Level 8.8 MG/DL (8.5-10.1) 8.8 MG/DL (8.5-10.1) Total Bilirubin 0.5 MG/DL (0.2-1.0) 0.9 MG/DL (0.2-1.0) Aspartate Amino Transf (AST/SGOT) 11 U/L (15-37) L 9 U/L (15-37) L Alanine Aminotransferase (ALT/SGPT) 25 U/L (12-78) 22 U/L (12-78) Alkaline Phosphatase 84 U/L (46-116) 74 U/L (46-116) Total Creatine Kinase 72 U/L (26-308) Creatine Kinase MB 1.0 NG/ML (0.0-3.6) Creatine Kinase MB Relative Index 1.3 Troponin I 0.000 ng/mL (0.000-0.056) 0.000 ng/mL (0.000-0.056) Pro-B-Type Natriuretic Peptide 20 pg/mL (0-125) Total Protein 7.7 G/DL (6.4-8.2) 6.9 G/DL (6.4-8.2) Albumin 3.8 G/DL (3.4-5.0) 3.4 G/DL (3.4-5.0) Globulin 3.9 g/dL 3.5 g/dL Albumin/Globulin Ratio 1.0 (1.0-2.7) 1.0 (1.0-2.7) Lactic Acid Level 1.80 mmol/L (0.66-2.22) Urine Color Pale yellow Urine Appearance Clear Urine pH 7 (4.5-8.0) Urine Specific [place] 1.005 (1.005-1.035) Urine Protein Negative (NEGATIVE) Urine Glucose (UA) 4+ (NEGATIVE) H Urine Ketones Negative (NEGATIVE) Urine Occult Blood Negative (NEGATIVE) Urine Nitrite Negative (NEGATIVE) Urine Bilirubin Negative (NEGATIVE) Urine Urobilinogen Normal MG/DL (0.0-1.0) Urine Leukocyte Esterase Negative (NEGATIVE) Hemoglobin A1c 10.1 % (4.3-6.0) H Test 01/10/18 15:00 Troponin I 0.000 ng/mL (0.000-0.056) Height (Feet): 5 Height (Inches): 9.00 Weight (Pounds): 212 Medications Current Medications Medications (Trade) Dose Ordered Sig/Dixie Route PRN Reason Start Time Stop Time Status Last Admin Dose Admin Acetaminophen (Tylenol) 650 mg Q4H PRN ORAL Mild Pain/Temp > 100.5 01/10/18 03:30 02/08/18 19:29 01/10/18 00:14 Albuterol/ Ipratropium (Albuterol/ Ipratropium) 3 ml EVERY 4 HOURS PRN HHN Shortness of Breath 01/09/18 19:30 01/14/18 19:29 Aspirin (ASA) 81 mg DAILY ORAL 01/10/18 09:00 02/09/18 08:59 01/10/18 09:20 Cefepime HCl 2 gm/ Dextrose 110 ml @ 220 mls/hr EVERY 12 HOURS IV 01/09/18 21:00 01/16/18 20:59 01/10/18 09:18 Dextrose (Dextrose 50%) 25 ml STAT PRN IV Hypoglycemia 01/10/18 07:15 02/09/18 07:14 Dextrose (Dextrose 50%) 50 ml STAT PRN IV Hypoglycemia 01/10/18 07:15 02/09/18 07:14 Famotidine (Pepcid) 20 mg DAILY ORAL 01/10/18 09:00 02/09/18 08:59 01/10/18 09:19 Heparin Sodium (Porcine) (Heparin 5000 units/ml) 5,000 units EVERY 12 HOURS SUBQ 01/09/18 21:00 02/08/18 20:59 01/10/18 09:21 Insulin Aspart (NovoLOG) BEFORE MEALS AND HS SUBQ 01/09/18 21:00 02/08/18 20:59 01/10/18 12:32 Insulin Aspart (NovoLOG) 6 units NOVOTIAC SUBQ 01/10/18 11:50 02/09/18 11:49 01/10/18 12:31 Insulin Detemir (Levemir) 18 units DAILY SUBQ 01/10/18 09:00 02/09/18 08:59 01/10/18 09:22 Lisinopril (Zestril) 10 mg DAILY ORAL 01/11/18 09:00 02/10/18 08:59 Metformin HCl (Glucophage) 500 mg TIAC ORAL 01/10/18 11:30 02/09/18 11:29 01/10/18 12:27 Nitroglycerin (Ntg) 0.4 mg Q 5 MINS PRN SL Prn Chest Pain 01/09/18 19:30 02/08/18 19:29 Ondansetron HCl (Zofran) 4 mg Q6H PRN IVP Nausea & Vomiting 01/09/18 19:30 02/08/18 19:29 Polyethylene Glycol (Miralax) 17 gm DAILYPRN PRN ORAL Constipation 01/09/18 19:30 02/08/18 19:29 Temazepam (Restoril) 15 mg HSPRN PRN ORAL Insomnia 01/09/18 19:30 01/16/18 19:29 Vancomycin HCl/ Dextrose 250 ml @ 125 mls/hr Q12H IVPB 01/09/18 22:00 01/14/18 21:59 01/10/18 12:11 Assessment/Plan Assessment/Plan Abx: IV Vanco 01/09- CEfepime 01/09- Assessment: L 1st toe cellulitis; improving- patient no longer has purulent discharge and erythema as described by patient. Area of callous and no deep ulcer. Doubt OM -xray foot pending Afebrile, no leukocytosis -u/a neg Dm2 w/ neuropathy HTN GERD Plan: -Continue IV Vancomycin #2 and switch CEfepime to Ancef for cellulitis; will likely treat for 7-10 days unless evidence of OM on xray. -tomorrow can switch to PO Keflex 500mg qid and Bactrim DS 1tab bid -f/u cx -Monitor CBC/BMP, temperatures -podiatry eval -wound care/prevention per hosp protocol Thank you for this consultation. Will continue to follow along with you. Discussed with Leticia Medina M.D. January 10, 2018 16:23
--- NOTE | 2018-01-10 17:30 | History and Physical Report ---
DATE OF ADMISSION: 01/09/2018 CHIEF COMPLAINT: The patient is a 57-year-old male who presents with a chief complaint of elevated blood sugars and right first toe pain. HISTORY OF PRESENT ILLNESS: History of present illness began three days prior to admission. The patient noticed an ulcer of his right first toe. It was draining pus. The patient also had blood sugars of up to 380. The patient also was complaining of on and off chest pain. Chest pain was nonradiating. There was no radiation to the jaw or to the shoulder. The patient presented to [facility] emergency room. The patient was admitted for diabetic ulcer of the right first toe and hyperglycemia. REVIEW OF SYSTEMS: CONSTITUTIONAL: The patient denies weight loss or weight gain. The patient has fevers or chills. HEENT: The patient denies ear or throat pain. The patient denies headache. CARDIOVASCULAR: The patient complains of chest pain as above. The patient denies palpitations. ABDOMEN: The patient denies nausea, vomiting, diarrhea, or constipation. GENITOURINARY: The patient denies dysuria or increased frequency of urination. NEUROMUSCULAR: The patient complains of right great toe ulcer as above. The patient denies seizures or generalized weakness. PAST MEDICAL HISTORY: Significant for, 1. Type 2 diabetes. 2. Major depression. PAST SURGICAL HISTORY: Significant for appendectomy. CURRENT MEDICATIONS: 1. Metformin 1000 mg p.o. twice daily. 2. Insulin 70/30, 40 units subcutaneously twice daily. ALLERGIES: No known drug allergies. SOCIAL HISTORY: The patient is . The patient denies tobacco use. The patient admits to occasional social alcohol use. PHYSICAL EXAMINATION: VITAL SIGNS: Temperature 97.5 degrees, respirations 19, pulse 73, and blood pressure 122/74. GENERAL: The patient is well-developed, well-nourished, male, in no apparent distress. HEENT: Eyes, pupils are equal and responsive to light and accommodation. Extraocular movements are intact. NECK: Supple without lymphadenopathy. CHEST: Lungs are clear to auscultation bilaterally without wheezes or rales. CARDIOVASCULAR: Regular rhythm and rate. S1 and S2 are normal without murmurs, rubs, or gallops. ABDOMEN: Soft, nontender, and nondistended. Positive bowel sounds. No evidence of hepatosplenomegaly. Currently, no rebound or guarding noted. EXTREMITIES: Negative for clubbing or cyanosis. Negative for edema. There is an open ulcer of the right great toe. GENITOURINARY: Refused. EXTREMITIES: There is no edema noted. There is an approximate 1 cm ulcer of the right great toe. NEUROMUSCULAR: Cranial nerves II through XII grossly intact without focal deficits. Motor strength is 5/5 bilaterally. Deep tendon reflexes are 2+ plantar. LABORATORY AND DIAGNOSTIC DATA: WBC 7.2, hemoglobin 15.0, hematocrit 45.3, and platelets 235,000. Sodium 137, potassium 4.1, chloride 101, CO2 30, BUN 12, creatinine 0.9 and glucose elevated at 331. ASSESSMENT: This is a 57-year-old male, 1. Chest pain. 2. Right great toe diabetic ulcer. 3. Uncontrolled diabetes type 2. TREATMENT: 1. Chest pain. A Cardiology consultation has been obtained with Dr. Wyatt Retana. We will follow recommendation of Cardiology. 2. Right great toe ulcer. A Podiatry consultation has been obtained with Dr. Meyer. An Infectious Disease consultation has been obtained with Dr. Cortes. The patient will be started on empiric vancomycin and cefepime. 3. Uncontrolled diabetes type 2. An Endocrinology consultation has been obtained with Dr. Jin. Dustin Bailon M.D. DR: ALICIA JOB#: [id number] CC:
[2018-01-10 20:00] VITALS: BP 153/90
[2018-01-10] MEDS: ceFAZolin sod 1 GM in D5W 55 ML IVPB SCH (20:59)
--- NOTE | 2018-01-10 22:45 | Consultation ---
DATE OF CONSULTATION: 01/10/2018 CARDIOLOGY CONSULTATION CONSULTING PHYSICIAN: Wyatt Retana M.D. REFERRING PHYSICIAN: Des Lieberman M.D. REASON FOR CONSULTATION: Hypertension and palpitation. HISTORY OF PRESENT ILLNESS: The patient is a 57-year-old gentleman with history of hypertension and diabetes for 5 years with diabetic neuropathy, came to emergency room for increasing lower extremity discomfort with left great toe pain. The patient also felt palpitation that was persistent for about 5 minutes before he came to the hospital. He also had chest pain at the time that did not radiate. The patient was admitted and a Cardiology consultation was obtained for further evaluation and management. PAST MEDICAL HISTORY: 1. Hypertension. 2. Diabetes and diabetic neuropathy. 3. He denies prior myocardial infarction or coronary artery disease. FAMILY HISTORY: Noncontributory. SOCIAL HISTORY: He lives at home. Does not smoke or drink alcohol. REVIEW OF SYSTEMS: Review of systems was performed and was negative other than what was mentioned in the history of present illness. PHYSICAL EXAMINATION: VITAL SIGNS: Blood pressure is 133/82, pulse 72, respirations 18, and temperature 97.4 degrees. HEAD AND NECK: No JVD or carotid bruits. LUNGS: Clear. CARDIOVASCULAR: Regular S1 and S2 with no gallop or murmur. ABDOMEN: Soft. EXTREMITIES: No pitting edema, however, his toe has an ulcer on it. LABORATORY AND DIAGNOSTIC DATA: His EKG shows sinus rhythm with nonspecific T-wave abnormalities and prolonged QT. ASSESSMENT AND PLAN: 1. Chest pain at the time of palpitation that was brief. The patient denies any chest pain or shortness of breath at this time. We will completely rule out myocardial infarction protocol. His first troponin was negative. 2. History of hypertension. Especially in view of the patient's diabetes, I will start the patient on lisinopril 10 mg daily. Especially, the renal function is also within normal range. 3. Palpitation, that could be due to supraventricular tachycardia or premature atrial contractions or premature ventricular contractions. Watch the patient on telemetry. patient's diabetes better controlled, the patient would benefit from a stress test for further evaluation. 4. Uncontrolled diabetes. 5. Diabetic foot ulcer. Thank you very much, Dr. Lieberman, for allowing me to participate in the care of this patient. Please do not hesitate to contact me for any questions regarding my evaluation. Wyatt Retana M.D. DR: ЮЛИЯ JOB#: [id number] CC:
[2018-01-11] VITALS: BP 136/78
[2018-01-11 04:00] VITALS: BP 133/86
[2018-01-11 05:05] LABS: BASOPHILS % (AUTO) 1.6 % (0.0-2.0); EOSINOPHILS % (AUTO) 1.8 % (0.0-3.0); HEMATOCRIT 43.8 % (42.0-52.0); HEMOGLOBIN 16.5 G/DL (14.2-18.0); LYMPHOCYTES % (AUTO) 29.4 % (20.0-45.0); MEAN CORPUSCULAR VOLUME 91 FL (80-99); MONOCYTES % (AUTO) 6.9 % (1.0-10.0); NEUTROPHILS % (AUTO) 60.3 % (45.0-75.0); PLATELET COUNT 214 K/UL (150-450); RED BLOOD COUNT 4.83 M/UL (4.70-6.10); RED CELL DISTRIBUTION WIDTH 9.9 % (11.6-14.8); WHITE BLOOD COUNT 7.7 K/UL (4.8-10.8)
[2018-01-11 05:19] LABS: ANION GAP 8 mmol/L (5-15); BLOOD UREA NITROGEN 11 mg/dL (7-18); CARBON DIOXIDE 26 MMOL/L (21-32); CHLORIDE 103 MMOL/L (98-107); CHOLESTEROL 133 MG/DL (< 200); CREATININE 0.8 MG/DL (0.55-1.30); HDL CHOLESTEROL 32 MG/DL (40-60); POTASSIUM 3.7 MMOL/L (3.5-5.1); SODIUM 136 MMOL/L (136-145); TRIGLYCERIDES 123 MG/DL (30-150)
[2018-01-11] MEDS: ceFAZolin sod 1 GM in D5W 55 ML IVPB SCH ×2 (06:17→14:00)
[2018-01-11] MEDS: metFORMIN 500mg tab ORAL SCH ×3 (06:17→16:48)
[2018-01-11] MEDS: NovoLOG Insulin Flexpen SUBQ SCH ×7 (06:18→21:20)
--- NOTE | 2018-01-11 07:06 | General Progress Note ---
Assessment/Plan Problem List: (1) Ulcer of toe due to diabetes ICD Codes: E11.621 - Type 2 diabetes mellitus with foot ulcer; L97.509 - Non- pressure chronic ulcer of other part of unspecified foot with unspecified severity SNOMED: 59945050, 823180818, 923316433 (2) Uncontrolled diabetes mellitus ICD Codes: E11.65 - Type 2 diabetes mellitus with hyperglycemia SNOMED: 50993878, 891570673 Assessment/Plan increase Levemir to 23 units qam continue Novolog 6 units ac tid continue Metformin 500 mg tid continue NISS Subjective Allergies: Coded Allergies: No Known Allergies (Verified Allergy, Unknown, 05/12/11) All Systems: reviewed and negative except above Subjective events noted Objective Last 24 Hour Vital Signs Date Time Temp Pulse Resp B/P (MAP) Pulse Ox O2 Delivery O2 Flow Rate FiO2 01/11/18 04:00 98.0 64 20 133/86 98 Room Air 98.0 01/11/18 00:00 98.2 72 20 136/78 98 Room Air 98.2 01/11/18 00:00 72 01/10/18 20:00 73 01/10/18 20:00 97.7 69 20 153/90 97 Room Air 97.7 01/10/18 19:52 65 17 Room Air 21 01/10/18 16:00 75 01/10/18 16:00 97.3 68 21 122/83 99 Room Air 97.3 01/10/18 12:00 65 01/10/18 12:00 97.9 65 20 133/80 97 Room Air 97.9 01/10/18 08:03 79 16 Room Air 21 01/10/18 08:00 97.5 72 20 119/76 99 Room Air 97.5 01/10/18 08:00 74 Intake and Output 01/10/18 01/11/18 19:00 07:00 Intake Total 850 ml 720 ml Output Total 900 ml Balance -50 ml 720 ml Intake Oral 850 ml 720 ml Output Urine Total 900 ml # Voids 2 Laboratory Tests 01/10/18 15:00: Troponin I 0.000 01/11/18 02:35: Troponin I 0.000 01/11/18 04:20: White Blood Count 7.7, Red Blood Count 4.83, Hemoglobin 16.5, Hematocrit 43.8, Mean Corpuscular Volume 91, Mean Corpuscular Hemoglobin 34.1H, Mean Corpuscular Hemoglobin Concent 37.6H, Red Cell Distribution Width 9.9L, Platelet Count 214, Mean Platelet Volume 7.3, Neutrophils (%) (Auto) 60.3, Lymphocytes (%) (Auto) 29.4, Monocytes (%) (Auto) 6.9, Eosinophils (%) (Auto) 1.8, Basophils (%) (Auto ) 1.6, Prothrombin Time 10.1, Prothromb Time International Ratio 1.0, Sodium Level 136, Potassium Level 3.7, Chloride Level 103, Carbon Dioxide Level 26, Anion Gap 8, Blood Urea Nitrogen 11, Creatinine 0.8, Estimat Glomerular Filtration Rate > 60, Glucose Level 290H, Calcium Level 9.0, Pro-B-Type Natriuretic Peptide 27, Triglycerides Level 123, Cholesterol Level 133, LDL Cholesterol 88, HDL Cholesterol 32L, Cholesterol/HDL Ratio 4.2, Thyroid Stimulating Hormone (TSH) 0.712 Height (Feet): 5 Height (Inches): 9.00 Weight (Pounds): 212 General Appearance: no apparent distress Neck: normal alignment Cardiovascular: normal rate Respiratory/Chest: lungs clear Abdomen: normal bowel sounds Pelvis: normal external exam Objective Current Medications Medications (Trade) Dose Ordered Sig/Dixie Route PRN Reason Start Time Stop Time Status Last Admin Dose Admin Acetaminophen (Tylenol) 650 mg Q4H PRN ORAL Mild Pain/Temp > 100.5 01/10/18 03:30 02/08/18 19:29 01/10/18 00:14 Albuterol/ Ipratropium (Albuterol/ Ipratropium) 3 ml EVERY 4 HOURS PRN HHN Shortness of Breath 01/09/18 19:30 01/14/18 19:29 Aspirin (ASA) 81 mg DAILY ORAL 01/10/18 09:00 02/09/18 08:59 01/10/18 09:20 Cefazolin Sodium 1 gm/Dextrose 55 ml @ 110 mls/hr Q8HR IVPB 01/10/18 21:00 01/17/18 23:59 01/11/18 06:17 Dextrose (Dextrose 50%) 25 ml STAT PRN IV Hypoglycemia 01/10/18 07:15 02/09/18 07:14 Dextrose (Dextrose 50%) 50 ml STAT PRN IV Hypoglycemia 01/10/18 07:15 02/09/18 07:14 Famotidine (Pepcid) 20 mg DAILY ORAL 01/10/18 09:00 02/09/18 08:59 01/10/18 09:19 Heparin Sodium (Porcine) (Heparin 5000 units/ml) 5,000 units EVERY 12 HOURS SUBQ 01/09/18 21:00 02/08/18 20:59 01/10/18 21:01 Insulin Aspart (NovoLOG) BEFORE MEALS AND HS SUBQ 01/09/18 21:00 02/08/18 20:59 01/11/18 06:18 Insulin Aspart (NovoLOG) 6 units NOVOTIAC SUBQ 01/10/18 11:50 02/09/18 11:49 01/11/18 06:19 Insulin Detemir (Levemir) 18 units DAILY SUBQ 01/10/18 09:00 02/09/18 08:59 01/10/18 09:22 Lisinopril (Zestril) 10 mg DAILY ORAL 01/11/18 09:00 02/10/18 08:59 Metformin HCl (Glucophage) 500 mg TIAC ORAL 01/10/18 11:30 02/09/18 11:29 01/11/18 06:17 Nitroglycerin (Ntg) 0.4 mg Q 5 MINS PRN SL Prn Chest Pain 01/09/18 19:30 02/08/18 19:29 Ondansetron HCl (Zofran) 4 mg Q6H PRN IVP Nausea & Vomiting 01/09/18 19:30 02/08/18 19:29 Polyethylene Glycol (Miralax) 17 gm DAILYPRN PRN ORAL Constipation 01/09/18 19:30 02/08/18 19:29 Temazepam (Restoril) 15 mg HSPRN PRN ORAL Insomnia 01/09/18 19:30 01/16/18 19:29 Vancomycin HCl/ Dextrose 250 ml @ 125 mls/hr Q12H IVPB 01/09/18 22:00 01/14/18 21:59 01/10/18 21:55 Item Value Date Time Bedside Blood Glucose 240 mg/dl H 01/11/18 0630 Bedside Blood Glucose 181 mg/dl H 01/10/18 2100 Bedside Blood Glucose 185 mg/dl H 01/10/18 1729 Bedside Blood Glucose 229 mg/dl H 01/10/18 1232 Bedside Blood Glucose 289 mg/dl H 01/10/18 0922 PAUL MARIE January 11, 2018 07:06
[2018-01-11 08:00] VITALS: BP 144/92
[2018-01-11] MEDS: Lisinopril 10mg tab ORAL SCH (08:29)
[2018-01-11] MEDS: Aspirin Baby 81mg ORAL SCH (08:29)
[2018-01-11] MEDS: Heparin 5000 units/ml inj SUBQ SCH ×2 (08:31→21:17)
[2018-01-11] MEDS ORDERED: Levemir Flexpen SUBQ SCH (09:00)
[2018-01-11] MEDS: Vancomycin 1.5 GM/D5W 250ML IVPB SCH (10:04)
[2018-01-11 12:00] VITALS: BP 144/94
--- NOTE | 2018-01-11 12:13 | Pulmonology Progress Note ---
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 ROS Limited/Unobtainable: No Interval Events: no new complains Constitutional: Reports: no symptoms HEENT: Repors: no symptoms Allergies: Coded Allergies: No Known Allergies (Verified Allergy, Unknown, 05/12/11) Objective Last 24 Hour Vital Signs Date Time Temp Pulse Resp B/P (MAP) Pulse Ox O2 Delivery O2 Flow Rate FiO2 01/11/18 08:29 144/92 01/11/18 08:02 66 18 Room Air 21 01/11/18 08:00 84 01/11/18 08:00 98.0 64 20 144/92 98 Room Air 21 98.0 01/11/18 04:00 98.0 64 20 133/86 98 Room Air 98.0 01/11/18 04:00 67 01/11/18 00:00 98.2 72 20 136/78 98 Room Air 98.2 01/11/18 00:00 72 01/10/18 20:00 73 01/10/18 20:00 97.7 69 20 153/90 97 Room Air 97.7 01/10/18 19:52 65 17 Room Air 21 01/10/18 16:00 75 01/10/18 16:00 97.3 68 21 122/83 99 Room Air 97.3 Intake and Output 01/10/18 01/11/18 19:00 07:00 Intake Total 850 ml 720 ml Output Total 900 ml Balance -50 ml 720 ml Intake Oral 850 ml 720 ml Output Urine Total 900 ml # Voids 2 General Appearance: WD/WN HEENT: normocephalic, atraumatic Respiratory/Chest: chest wall non-tender, lungs clear, normal breath sounds Cardiovascular: normal peripheral pulses, normal rate Abdomen: normal bowel sounds, soft, non tender Extremities: no cyanosis, no clubbing 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 Microbiology Date/Time Source Procedure Growth Status 01/09/18 17:35 Blood Blood Culture - Preliminary NO GROWTH AFTER 24 HOURS Resulted 01/09/18 17:20 Blood Blood Culture - Preliminary NO GROWTH AFTER 24 HOURS Resulted Laboratory Tests 01/10/18 15:00: Troponin I 0.000 5/3/18 02:35: Troponin I 0.000 01/11/18 04:20: White Blood Count 7.7, Red Blood Count 4.83, Hemoglobin 16.5, Hematocrit 43.8, Mean Corpuscular Volume 91, Mean Corpuscular Hemoglobin 34.1H, Mean Corpuscular Hemoglobin Concent 37.6H, Red Cell Distribution Width 9.9L, Platelet Count 214, Mean Platelet Volume 7.3, Neutrophils (%) (Auto) 60.3, Lymphocytes (%) (Auto) 29.4, Monocytes (%) (Auto) 6.9, Eosinophils (%) (Auto) 1.8, Basophils (%) (Auto ) 1.6, Prothrombin Time 10.1, Prothromb Time International Ratio 1.0, Sodium Level 136, Potassium Level 3.7, Chloride Level 103, Carbon Dioxide Level 26, Anion Gap 8, Blood Urea Nitrogen 11, Creatinine 0.8, Estimat Glomerular Filtration Rate > 60, Glucose Level 290H, Calcium Level 9.0, Pro-B-Type Natriuretic Peptide 27, Triglycerides Level 123, Cholesterol Level 133, LDL Cholesterol 88, HDL Cholesterol 32L, Cholesterol/HDL Ratio 4.2, Thyroid Stimulating Hormone (TSH) 0.712 01/11/18 09:00: Vancomycin Level Trough 8.3 Current Medications Medications (Trade) Dose Ordered Sig/Dixie Route PRN Reason Start Time Stop Time Status Last Admin Dose Admin Acetaminophen (Tylenol) 650 mg Q4H PRN ORAL Mild Pain/Temp > 100.5 01/10/18 03:30 02/08/18 19:29 01/10/18 00:14 Albuterol/ Ipratropium (Albuterol/ Ipratropium) 3 ml EVERY 4 HOURS PRN HHN Shortness of Breath 01/09/18 19:30 01/14/18 19:29 Aspirin (ASA) 81 mg DAILY ORAL 01/10/18 09:00 02/09/18 08:59 01/11/18 08:29 Cefazolin Sodium 1 gm/Dextrose 55 ml @ 110 mls/hr Q8HR IVPB 01/10/18 21:00 01/17/18 23:59 01/11/18 06:17 Dextrose (Dextrose 50%) 25 ml STAT PRN IV Hypoglycemia 01/10/18 07:15 02/09/18 07:14 Dextrose (Dextrose 50%) 50 ml STAT PRN IV Hypoglycemia 01/10/18 07:15 02/09/18 07:14 Famotidine (Pepcid) 20 mg DAILY ORAL 01/10/18 09:00 02/09/18 08:59 01/11/18 08:29 Heparin Sodium (Porcine) (Heparin 5000 units/ml) 5,000 units EVERY 12 HOURS SUBQ 01/09/18 21:00 02/08/18 20:59 01/11/18 08:31 Insulin Aspart (NovoLOG) BEFORE MEALS AND HS SUBQ 01/09/18 21:00 02/08/18 20:59 01/11/18 11:21 Insulin Aspart (NovoLOG) 6 units NOVOTIAC SUBQ 01/10/18 11:50 02/09/18 11:49 01/11/18 11:20 Insulin Detemir (Levemir) 23 units DAILY SUBQ 01/11/18 09:00 02/09/18 08:59 01/11/18 08:34 Lisinopril (Zestril) 10 mg DAILY ORAL 01/11/18 09:00 02/10/18 08:59 01/11/18 08:29 Metformin HCl (Glucophage) 500 mg TIAC ORAL 01/10/18 11:30 02/09/18 11:29 01/11/18 11:18 Nitroglycerin (Ntg) 0.4 mg Q 5 MINS PRN SL Prn Chest Pain 01/09/18 19:30 02/08/18 19:29 Ondansetron HCl (Zofran) 4 mg Q6H PRN IVP Nausea & Vomiting 01/09/18 19:30 02/08/18 19:29 Polyethylene Glycol (Miralax) 17 gm DAILYPRN PRN ORAL Constipation 01/09/18 19:30 02/08/18 19:29 Temazepam (Restoril) 15 mg HSPRN PRN ORAL Insomnia 01/09/18 19:30 01/16/18 19:29 Vancomycin HCl/ Dextrose 250 ml @ 125 mls/hr Q12H IVPB 01/09/18 22:00 01/14/18 21:59 01/11/18 10:04 Daniela Parra MD January 11, 2018 12:13
--- NOTE | 2018-01-11 13:26 | Infectious Diseases Prog Note ---
Assessment/Plan Assessment/Plan Abx: IV Vanco 01/09- CEfepime 01/09- Assessment: L 1st toe cellulitis; improving- patient no longer has purulent discharge and erythema as described by patient. Area of callous and no deep ulcer. Doubt OM- no OM on xray -xray foot: No acute fractures, malalignment, erosions or periostitis are identified. Soft tissues are unremarkable. There is a plantar calcaneal tuberosity enthesophyte noted. There is an enthesophyte at the Achilles insertion as well. Afebrile, no leukocytosis -u/a neg Dm2 w/ neuropathy HTN GERD Plan: -Switch IV Vancomycin #11/15 and Ancef abx d#11/15 to PO Bactrim DS 1 tab bid and PO Keflex 500mg qid for cellulitis -monitor Cr and K levels -01/10 CEfepime #2 -f/u cx -Monitor CBC/BMP, temperatures -podiatry eval -wound care/prevention per hosp protocol Thank you for this consultation. Will continue to follow along with you. Discussed with RN. Subjective Allergies: Coded Allergies: No Known Allergies (Verified Allergy, Unknown, 05/12/11) Subjective afebrile no leukocytosis xray foot pending Objective Vital Signs Last 24 Hour Vital Signs Date Time Temp Pulse Resp B/P (MAP) Pulse Ox O2 Delivery O2 Flow Rate FiO2 01/11/18 12:00 97.8 69 18 144/94 98 Room Air 21 97.8 01/11/18 08:29 144/92 01/11/18 08:02 66 18 Room Air 21 01/11/18 08:00 84 01/11/18 08:00 98.0 64 20 144/92 98 Room Air 21 98.0 01/11/18 04:00 98.0 64 20 133/86 98 Room Air 98.0 01/11/18 04:00 67 01/11/18 00:00 98.2 72 20 136/78 98 Room Air 98.2 01/11/18 00:00 72 01/10/18 20:00 73 01/10/18 20:00 97.7 69 20 153/90 97 Room Air 97.7 01/10/18 19:52 65 17 Room Air 21 01/10/18 16:00 75 01/10/18 16:00 97.3 68 21 122/83 99 Room Air 97.3 Height (Feet): 5 Height (Inches): 9.00 Weight (Pounds): 212 Objective General Appearance: WD/WN, no apparent distress Lines, tubes and drains: peripheral HEENT: normocephalic, atraumatic Neck: non-tender, normal alignment Respiratory/Chest: chest wall non-tender, lungs clear Cardiovascular/Chest: normal peripheral pulses Abdomen: normal bowel sounds, non tender Genitourinary/Rectal: normal genital exam Extremities: normal range of motion Skin Exam: R 1st toe with callus on dorsal aspect- no currently drainage at this point, no erythema or swelling Microbiology Date/Time Source Procedure Growth Status 01/09/18 17:35 Blood Blood Culture - Preliminary NO GROWTH AFTER 24 HOURS Resulted 01/09/18 17:20 Blood Blood Culture - Preliminary NO GROWTH AFTER 24 HOURS Resulted Laboratory Tests Test 01/10/18 15:00 01/11/18 02:35 01/11/18 04:20 01/11/18 09:00 Troponin I 0.000 ng/mL (0.000-0.056) 0.000 ng/mL (0.000-0.056) White Blood Count 7.7 K/UL (4.8-10.8) Red Blood Count 4.83 M/UL (4.70-6.10) Hemoglobin 16.5 G/DL (14.2-18.0) Hematocrit 43.8 % (42.0-52.0) Mean Corpuscular Volume 91 FL (80-99) Mean Corpuscular Hemoglobin 34.1 PG (27.0-31.0) H Mean Corpuscular Hemoglobin Concent 37.6 G/DL (32.0-36.0) H Red Cell Distribution Width 9.9 % (11.6-14.8) L Platelet Count 214 K/UL (150-450) Mean Platelet Volume 7.3 FL (6.5-10.1) Neutrophils (%) (Auto) 60.3 % (45.0-75.0) Lymphocytes (%) (Auto) 29.4 % (20.0-45.0) Monocytes (%) (Auto) 6.9 % (1.0-10.0) Eosinophils (%) (Auto) 1.8 % (0.0-3.0) Basophils (%) (Auto) 1.6 % (0.0-2.0) Prothrombin Time 10.1 SEC (9.30-11.50) Prothromb Time International Ratio 1.0 (0.9-1.1) Sodium Level 136 MMOL/L (136-145) Potassium Level 3.7 MMOL/L (3.5-5.1) Chloride Level 103 MMOL/L (98-107) Carbon Dioxide Level 26 MMOL/L (21-32) Anion Gap 8 mmol/L (5-15) Blood Urea Nitrogen 11 mg/dL (7-18) Creatinine 0.8 MG/DL (0.55-1.30) Estimat Glomerular Filtration Rate > 60 mL/min (>60) Glucose Level 290 MG/DL (74-106) H Calcium Level 9.0 MG/DL (8.5-10.1) Pro-B-Type Natriuretic Peptide 27 pg/mL (0-125) Triglycerides Level 123 MG/DL (30-150) Cholesterol Level 133 MG/DL (< 200) LDL Cholesterol 88 mg/dL (<100) HDL Cholesterol 32 MG/DL (40-60) L Cholesterol/HDL Ratio 4.2 (3.3-4.4) Thyroid Stimulating Hormone (TSH) 0.712 uiU/mL (0.358-3.740) Vancomycin Level Trough 8.3 ug/mL (5.0-12.0) Current Medications Medications (Trade) Dose Ordered Sig/Dixie Route PRN Reason Start Time Stop Time Status Last Admin Dose Admin Acetaminophen (Tylenol) 650 mg Q4H PRN ORAL Mild Pain/Temp > 100.5 01/10/18 03:30 02/08/18 19:29 01/10/18 00:14 Albuterol/ Ipratropium (Albuterol/ Ipratropium) 3 ml EVERY 4 HOURS PRN HHN Shortness of Breath 01/09/18 19:30 01/14/18 19:29 Aspirin (ASA) 81 mg DAILY ORAL 01/10/18 09:00 02/09/18 08:59 01/11/18 08:29 Cefazolin Sodium 1 gm/Dextrose 55 ml @ 110 mls/hr Q8HR IVPB 01/10/18 21:00 01/17/18 23:59 01/11/18 06:17 Dextrose (Dextrose 50%) 25 ml STAT PRN IV Hypoglycemia 01/10/18 07:15 02/09/18 07:14 Dextrose (Dextrose 50%) 50 ml STAT PRN IV Hypoglycemia 01/10/18 07:15 02/09/18 07:14 Famotidine (Pepcid) 20 mg DAILY ORAL 01/10/18 09:00 02/09/18 08:59 01/11/18 08:29 Heparin Sodium (Porcine) (Heparin 5000 units/ml) 5,000 units EVERY 12 HOURS SUBQ 01/09/18 21:00 02/08/18 20:59 01/11/18 08:31 Insulin Aspart (NovoLOG) BEFORE MEALS AND HS SUBQ 01/09/18 21:00 02/08/18 20:59 01/11/18 11:21 Insulin Aspart (NovoLOG) 6 units NOVOTIAC SUBQ 01/10/18 11:50 02/09/18 11:49 01/11/18 11:20 Insulin Detemir (Levemir) 23 units DAILY SUBQ 01/11/18 09:00 02/09/18 08:59 01/11/18 08:34 Lisinopril (Zestril) 10 mg DAILY ORAL 01/11/18 09:00 02/10/18 08:59 01/11/18 08:29 Metformin HCl (Glucophage) 500 mg TIAC ORAL 01/10/18 11:30 02/09/18 11:29 01/11/18 11:18 Nitroglycerin (Ntg) 0.4 mg Q 5 MINS PRN SL Prn Chest Pain 01/09/18 19:30 02/08/18 19:29 Ondansetron HCl (Zofran) 4 mg Q6H PRN IVP Nausea & Vomiting 01/09/18 19:30 02/08/18 19:29 Polyethylene Glycol (Miralax) 17 gm DAILYPRN PRN ORAL Constipation 01/09/18 19:30 02/08/18 19:29 Temazepam (Restoril) 15 mg HSPRN PRN ORAL Insomnia 01/09/18 19:30 01/16/18 19:29 Vancomycin HCl/ Dextrose 250 ml @ 125 mls/hr Q12H IVPB 01/09/18 22:00 01/14/18 21:59 5/3/18 10:04 Leticia Cantu M.D. January 11, 2018 13:26
--- NOTE | 2018-01-11 14:10 | Diagnostic Imaging Report ---
Indication: Dyspnea Comparison: 03/21/2014 A single view chest radiograph was obtained. Findings: Cardiomediastinal appearance is within normal limits for age. Pulmonary vascularity is appropriate. The diaphragmatic contour is smooth and costophrenic angles are sharp. No pleural effusions are identified. The bones are unremarkable. Impression: No acute findings
--- NOTE | 2018-01-11 14:11 | Diagnostic Imaging Report ---
Indication: Pain Comparison: None Findings: 3 views of the left foot were obtained. No acute fractures, malalignment, erosions or periostitis are identified. Soft tissues are unremarkable. There is a plantar calcaneal tuberosity enthesophyte noted. There is an enthesophyte at the Achilles insertion as well. Impression: No acute findings
--- NOTE | 2018-01-11 15:57 | Cardiac Electrophysiology PN ---
Assessment/Plan Assessment/Plan 1. Chest pain at the time of palpitation that was brief. The patient denies any chest pain or shortness of breath at this time. Ruled out for myocardial infarction Stress test in am. 2. History of hypertension. On lisinopril 10 mg daily. 3. Palpitation, that could be due to supraventricular tachycardia or premature atrial contractions or premature ventricular contractions. 4. Uncontrolled diabetes. 5. Diabetic foot ulcer. Subjective Subjective No CP or SOB in SR. Objective Last 24 Hour Vital Signs Date Time Temp Pulse Resp B/P (MAP) Pulse Ox O2 Delivery O2 Flow Rate FiO2 01/11/18 15:15 97.8 01/11/18 14:16 97.8 01/11/18 12:00 97.8 69 18 144/94 98 Room Air 21 97.8 01/11/18 12:00 64 01/11/18 08:29 144/92 01/11/18 08:02 66 18 Room Air 21 01/11/18 08:00 84 01/11/18 08:00 98.0 64 20 144/92 98 Room Air 21 98.0 01/11/18 04:00 98.0 64 20 133/86 98 Room Air 98.0 01/11/18 04:00 67 01/11/18 00:00 98.2 72 20 136/78 98 Room Air 98.2 01/11/18 00:00 72 01/10/18 20:00 73 01/10/18 20:00 97.7 69 20 153/90 97 Room Air 97.7 01/10/18 19:52 65 17 Room Air 21 01/10/18 16:00 75 01/10/18 16:00 97.3 68 21 122/83 99 Room Air 97.3 Intake and Output 01/10/18 01/11/18 19:00 07:00 Intake Total 850 ml 720 ml Output Total 900 ml Balance -50 ml 720 ml Intake Oral 850 ml 720 ml Output Urine Total 900 ml # Voids 2 Laboratory Tests Test 01/11/18 02:35 01/11/18 04:20 01/11/18 09:00 Troponin I 0.000 ng/mL (0.000-0.056) White Blood Count 7.7 K/UL (4.8-10.8) Red Blood Count 4.83 M/UL (4.70-6.10) Hemoglobin 16.5 G/DL (14.2-18.0) Hematocrit 43.8 % (42.0-52.0) Mean Corpuscular Volume 91 FL (80-99) Mean Corpuscular Hemoglobin 34.1 PG (27.0-31.0) H Mean Corpuscular Hemoglobin Concent 37.6 G/DL (32.0-36.0) H Red Cell Distribution Width 9.9 % (11.6-14.8) L Platelet Count 214 K/UL (150-450) Mean Platelet Volume 7.3 FL (6.5-10.1) Neutrophils (%) (Auto) 60.3 % (45.0-75.0) Lymphocytes (%) (Auto) 29.4 % (20.0-45.0) Monocytes (%) (Auto) 6.9 % (1.0-10.0) Eosinophils (%) (Auto) 1.8 % (0.0-3.0) Basophils (%) (Auto) 1.6 % (0.0-2.0) Prothrombin Time 10.1 SEC (9.30-11.50) Prothromb Time International Ratio 1.0 (0.9-1.1) Sodium Level 136 MMOL/L (136-145) Potassium Level 3.7 MMOL/L (3.5-5.1) Chloride Level 103 MMOL/L (98-107) Carbon Dioxide Level 26 MMOL/L (21-32) Anion Gap 8 mmol/L (5-15) Blood Urea Nitrogen 11 mg/dL (7-18) Creatinine 0.8 MG/DL (0.55-1.30) Estimat Glomerular Filtration Rate > 60 mL/min (>60) Glucose Level 290 MG/DL (74-106) H Calcium Level 9.0 MG/DL (8.5-10.1) Pro-B-Type Natriuretic Peptide 27 pg/mL (0-125) Triglycerides Level 123 MG/DL (30-150) Cholesterol Level 133 MG/DL (< 200) LDL Cholesterol 88 mg/dL (<100) HDL Cholesterol 32 MG/DL (40-60) L Cholesterol/HDL Ratio 4.2 (3.3-4.4) Thyroid Stimulating Hormone (TSH) 0.712 uiU/mL (0.358-3.740) Vancomycin Level Trough 8.3 ug/mL (5.0-12.0) Microbiology Date/Time Source Procedure Growth Status 01/09/18 17:35 Blood Blood Culture - Preliminary NO GROWTH AFTER 24 HOURS Resulted 01/09/18 17:20 Blood Blood Culture - Preliminary NO GROWTH AFTER 24 HOURS Resulted Objective HEAD AND NECK: No JVD or carotid bruits. LUNGS: Clear. CARDIOVASCULAR: Regular S1 and S2 with no gallop or murmur. ABDOMEN: Soft. EXTREMITIES: No pitting edema, however, his toe has an ulcer on it. Wyatt Retana MD January 11, 2018 15:57
[2018-01-11 16:00] VITALS: BP 117/76
[2018-01-11] MEDS ORDERED: Lexiscan 0.4mg/5ml syringe IV PRN (16:00)
--- NOTE | 2018-01-11 16:17 | Consultation ---
History of Present Illness General Date patient seen: January 11, 2018 Time patient seen: 16:11 Chief Complaint: General Complaint Reason for Consultation: Cellulitis right foot Present Illness HPI Patient states that he had pain and swelling in right great toe. Which is now resolved. Allergies: Coded Allergies: No Known Allergies (Verified Allergy, Unknown, 05/12/11) Medication History Scheduled Aspirin* (Aspirin*), 81 MG ORAL DAILY, (Reported) Bacitracin (Bacitracin Zinc), 1 APPLIC TOPIC BID Famotidine (Pepcid), 20 MG ORAL DAILY Hydrocortisone 2% Cream (Anti-Itch 2% Cream), 1 APPLIC CUTAN BID Ibuprofen* (Motrin*), 600 MG ORAL THREE TIMES A DAY Metformin Hcl* (Metformin Hcl*), 1,000 MG ORAL BID, (Reported) Metformin Hcl* (Metformin Hcl*), 1,000 MG ORAL EVERY 12 HOURS, (Reported) Scheduled PRN Tramadol Hcl* (Ultram*), 50 MG ORAL Q6H PRN for For Pain Miscellaneous Medications Insulin Aspart* (Novolog*), 0 .ROUTE, (Reported) Durable Medical Equipment Blood-Glucose Meter, Drum-Type (Accu-Chek), 1 EACH MC BID, (DME) Lancets (1ST Choice Lancets), 1 EACH MC NEEDED, (DME) Patient History History Provided By: Patient Healthcare decision maker Resuscitation status Full Code Advanced Directive on File Past Medical/Surgical History Past Medical/Surgical History: (1) Hyperglycemia (2) Ulcer of toe due to diabetes (3) Uncontrolled diabetes mellitus (4) Foot infection Review of Systems Constitutional: Reports: no symptoms; Denies: see HPI, chills, sweats, fever, malaise, weakness, other Musculoskeletal: Denies: no symptoms, see HPI, back pain, gout, joint pain, joint swelling, muscle pain, muscle stiffness, other Skin: Reports: other - wound on right hallux Neurological: Reports: numbness Physical Exam General Appearance: WD/WN, no apparent distress, alert Lines, tubes and drains: peripheral Cardiovascular/Chest: normal peripheral pulses Extremities: normal range of motion, non-tender, no calf tenderness, no edema, no cyanosis Skin Exam: other - hyperpigmented hyperkeratosis plantar right hallux Neurologic: sensory deficit Musculoskeletal: normal muscle bulk Last 24 Hour Vital Signs Date Time Temp Pulse Resp B/P (MAP) Pulse Ox O2 Delivery O2 Flow Rate FiO2 01/11/18 15:15 97.8 01/11/18 14:16 97.8 01/11/18 12:00 97.8 69 18 144/94 98 Room Air 21 97.8 01/11/18 12:00 64 01/11/18 08:29 144/92 01/11/18 08:02 66 18 Room Air 21 01/11/18 08:00 84 01/11/18 08:00 98.0 64 20 144/92 98 Room Air 21 98.0 01/11/18 04:00 98.0 64 20 133/86 98 Room Air 98.0 01/11/18 04:00 67 01/11/18 00:00 98.2 72 20 136/78 98 Room Air 98.2 01/11/18 00:00 72 01/10/18 20:00 73 01/10/18 20:00 97.7 69 20 153/90 97 Room Air 97.7 01/10/18 19:52 65 17 Room Air 21 Intake and Output 01/10/18 01/11/18 19:00 07:00 Intake Total 850 ml 720 ml Output Total 900 ml Balance -50 ml 720 ml Intake Oral 850 ml 720 ml Output Urine Total 900 ml # Voids 2 Laboratory Tests Test 01/11/18 02:35 01/11/18 04:20 01/11/18 09:00 Troponin I 0.000 ng/mL (0.000-0.056) White Blood Count 7.7 K/UL (4.8-10.8) Red Blood Count 4.83 M/UL (4.70-6.10) Hemoglobin 16.5 G/DL (14.2-18.0) Hematocrit 43.8 % (42.0-52.0) Mean Corpuscular Volume 91 FL (80-99) Mean Corpuscular Hemoglobin 34.1 PG (27.0-31.0) H Mean Corpuscular Hemoglobin Concent 37.6 G/DL (32.0-36.0) H Red Cell Distribution Width 9.9 % (11.6-14.8) L Platelet Count 214 K/UL (150-450) Mean Platelet Volume 7.3 FL (6.5-10.1) Neutrophils (%) (Auto) 60.3 % (45.0-75.0) Lymphocytes (%) (Auto) 29.4 % (20.0-45.0) Monocytes (%) (Auto) 6.9 % (1.0-10.0) Eosinophils (%) (Auto) 1.8 % (0.0-3.0) Basophils (%) (Auto) 1.6 % (0.0-2.0) Prothrombin Time 10.1 SEC (9.30-11.50) Prothromb Time International Ratio 1.0 (0.9-1.1) Sodium Level 136 MMOL/L (136-145) Potassium Level 3.7 MMOL/L (3.5-5.1) Chloride Level 103 MMOL/L (98-107) Carbon Dioxide Level 26 MMOL/L (21-32) Anion Gap 8 mmol/L (5-15) Blood Urea Nitrogen 11 mg/dL (7-18) Creatinine 0.8 MG/DL (0.55-1.30) Estimat Glomerular Filtration Rate > 60 mL/min (>60) Glucose Level 290 MG/DL (74-106) H Calcium Level 9.0 MG/DL (8.5-10.1) Pro-B-Type Natriuretic Peptide 27 pg/mL (0-125) Triglycerides Level 123 MG/DL (30-150) Cholesterol Level 133 MG/DL (< 200) LDL Cholesterol 88 mg/dL (<100) HDL Cholesterol 32 MG/DL (40-60) L Cholesterol/HDL Ratio 4.2 (3.3-4.4) Thyroid Stimulating Hormone (TSH) 0.712 uiU/mL (0.358-3.740) Vancomycin Level Trough 8.3 ug/mL (5.0-12.0) Height (Feet): 5 Height (Inches): 9.00 Weight (Pounds): 212 Medications Current Medications Medications (Trade) Dose Ordered Sig/Dixie Route PRN Reason Start Time Stop Time Status Last Admin Dose Admin Acetaminophen (Tylenol) 650 mg Q4H PRN ORAL Mild Pain/Temp > 100.5 01/10/18 03:30 02/08/18 19:29 01/11/18 14:16 Albuterol/ Ipratropium (Albuterol/ Ipratropium) 3 ml EVERY 4 HOURS PRN HHN Shortness of Breath 01/09/18 19:30 01/14/18 19:29 Aspirin (ASA) 81 mg DAILY ORAL 01/10/18 09:00 02/09/18 08:59 01/11/18 08:29 Cephalexin (Keflex) 500 mg FOUR TIMES A DAY ORAL 01/11/18 18:00 01/18/18 17:59 Dextrose (Dextrose 50%) 25 ml STAT PRN IV Hypoglycemia 01/10/18 07:15 02/09/18 07:14 Dextrose (Dextrose 50%) 50 ml STAT PRN IV Hypoglycemia 01/10/18 07:15 02/09/18 07:14 Famotidine (Pepcid) 20 mg DAILY ORAL 01/10/18 09:00 02/09/18 08:59 01/11/18 08:29 Heparin Sodium (Porcine) (Heparin 5000 units/ml) 5,000 units EVERY 12 HOURS SUBQ 01/09/18 21:00 02/08/18 20:59 01/11/18 08:31 Insulin Aspart (NovoLOG) BEFORE MEALS AND HS SUBQ 01/09/18 21:00 02/08/18 20:59 01/11/18 11:21 Insulin Aspart (NovoLOG) 6 units NOVOTIAC SUBQ 01/10/18 11:50 02/09/18 11:49 01/11/18 11:20 Insulin Detemir (Levemir) 23 units DAILY SUBQ 01/11/18 09:00 02/09/18 08:59 01/11/18 08:34 Lisinopril (Zestril) 10 mg DAILY ORAL 01/11/18 09:00 02/10/18 08:59 01/11/18 08:29 Metformin HCl (Glucophage) 500 mg TIAC ORAL 01/10/18 11:30 02/09/18 11:29 01/11/18 11:18 Nitroglycerin (Ntg) 0.4 mg Q 5 MINS PRN SL Prn Chest Pain 01/09/18 19:30 02/08/18 19:29 Ondansetron HCl (Zofran) 4 mg Q6H PRN IVP Nausea & Vomiting 01/09/18 19:30 02/08/18 19:29 Polyethylene Glycol (Miralax) 17 gm DAILYPRN PRN ORAL Constipation 01/09/18 19:30 02/08/18 19:29 Regadenoson (Lexiscan) 0.4 mg ONCE PRN IV STRESS TEST 01/11/18 16:00 01/12/18 23:59 Temazepam (Restoril) 15 mg HSPRN PRN ORAL Insomnia 01/09/18 19:30 01/16/18 19:29 Trimethoprim/ Sulfamethoxazole (Bactrim Single Strength) 1 ea EVERY 12 HOURS ORAL 01/11/18 21:00 01/18/18 20:59 Assessment/Plan Assessment/Plan A/ 1) Cellulitis right foot - resolved 2) Callus right hallux 3) DM uncontrolled 4) DM with neuropathy P/ 1) Will dispense post op shoe to off load site 2) D/W ID, oral abx. 3) Patient needs outpatient Podiatry follow up. receiving manager consulted 4) Clear to d/c from my standpoint. Thank you Lawrence Tan DPM January 11, 2018 16:17
--- NOTE | 2018-01-11 17:15 | Internal Med Progress Note ---
Subjective Date of Service: January 11, 2018 Physician Name Iron Arshad Attending Physician Dse Lieberman MD Current Medications Medications (Trade) Dose Ordered Sig/Dixie Route PRN Reason Start Time Stop Time Status Last Admin Dose Admin Acetaminophen (Tylenol) 650 mg Q4H PRN ORAL Mild Pain/Temp > 100.5 01/10/18 03:30 02/08/18 19:29 01/11/18 14:16 Albuterol/ Ipratropium (Albuterol/ Ipratropium) 3 ml EVERY 4 HOURS PRN HHN Shortness of Breath 01/09/18 19:30 01/14/18 19:29 Aspirin (ASA) 81 mg DAILY ORAL 01/10/18 09:00 02/09/18 08:59 01/11/18 08:29 Cephalexin (Keflex) 500 mg FOUR TIMES A DAY ORAL 01/11/18 18:00 01/18/18 17:59 Dextrose (Dextrose 50%) 25 ml STAT PRN IV Hypoglycemia 01/10/18 07:15 02/09/18 07:14 Dextrose (Dextrose 50%) 50 ml STAT PRN IV Hypoglycemia 01/10/18 07:15 02/09/18 07:14 Famotidine (Pepcid) 20 mg DAILY ORAL 01/10/18 09:00 02/09/18 08:59 01/11/18 08:29 Heparin Sodium (Porcine) (Heparin 5000 units/ml) 5,000 units EVERY 12 HOURS SUBQ 01/09/18 21:00 02/08/18 20:59 01/11/18 08:31 Insulin Aspart (NovoLOG) BEFORE MEALS AND HS SUBQ 01/09/18 21:00 02/08/18 20:59 01/11/18 11:21 Insulin Aspart (NovoLOG) 6 units NOVOTIAC SUBQ 01/10/18 11:50 02/09/18 11:49 01/11/18 11:20 Insulin Detemir (Levemir) 23 units DAILY SUBQ 01/11/18 09:00 02/09/18 08:59 01/11/18 08:34 Lisinopril (Zestril) 10 mg DAILY ORAL 01/11/18 09:00 02/10/18 08:59 01/11/18 08:29 Metformin HCl (Glucophage) 500 mg TIAC ORAL 01/10/18 11:30 02/09/18 11:29 01/11/18 16:48 Nitroglycerin (Ntg) 0.4 mg Q 5 MINS PRN SL Prn Chest Pain 01/09/18 19:30 02/08/18 19:29 Ondansetron HCl (Zofran) 4 mg Q6H PRN IVP Nausea & Vomiting 01/09/18 19:30 02/08/18 19:29 Polyethylene Glycol (Miralax) 17 gm DAILYPRN PRN ORAL Constipation 01/09/18 19:30 02/08/18 19:29 Regadenoson (Lexiscan) 0.4 mg ONCE PRN IV STRESS TEST 01/11/18 16:00 01/12/18 23:59 Temazepam (Restoril) 15 mg HSPRN PRN ORAL Insomnia 01/09/18 19:30 01/16/18 19:29 Trimethoprim/ Sulfamethoxazole (Bactrim Single Strength) 1 ea EVERY 12 HOURS ORAL 01/11/18 21:00 01/18/18 20:59 Allergies: Coded Allergies: No Known Allergies (Verified Allergy, Unknown, 05/12/11) ROS Limited/Unobtainable: No Constitutional: Reports: no symptoms HEENT: Reports: no symptoms Cardiovascular: Reports: no symptoms Respiratory: Reports: no symptoms Gastrointestinal/Abdominal: Reports: no symptoms Genitourinary: Reports: no symptoms Neurologic/Psychiatric: Reports: no symptoms Subjective 57 YO M admitted with chest pain. Now right great toe ulcer. Cover for Int Darren -Dr Lieberman. Objective Last Vital Signs Date Time Temp Pulse Resp B/P (MAP) Pulse Ox O2 Delivery O2 Flow Rate FiO2 01/11/18 15:15 97.8 01/11/18 12:00 69 18 144/94 98 Room Air 21 General Appearance: WD/WN, no apparent distress, alert EENT: PERRL/EOMI, normal ENT inspection, TMs normal Neck: non-tender, normal alignment, supple, normal inspection Cardiovascular: normal peripheral pulses, normal rate, regular rhythm, no gallop/murmur, no JVD Respiratory/Chest: chest wall non-tender, lungs clear, normal breath sounds, no respiratory distress, no accessory muscle use Abdomen: normal bowel sounds, non tender, soft, no organomegaly, no mass Extremities: normal range of motion, non-tender Edema: trace edema 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 normal, no motor/sensory deficits Skin: normal pigmentation, warm/dry Laboratory Tests Test 01/11/18 02:35 01/11/18 04:20 01/11/18 09:00 Troponin I 0.000 ng/mL (0.000-0.056) White Blood Count 7.7 K/UL (4.8-10.8) Red Blood Count 4.83 M/UL (4.70-6.10) Hemoglobin 16.5 G/DL (14.2-18.0) Hematocrit 43.8 % (42.0-52.0) Mean Corpuscular Volume 91 FL (80-99) Mean Corpuscular Hemoglobin 34.1 PG (27.0-31.0) H Mean Corpuscular Hemoglobin Concent 37.6 G/DL (32.0-36.0) H Red Cell Distribution Width 9.9 % (11.6-14.8) L Platelet Count 214 K/UL (150-450) Mean Platelet Volume 7.3 FL (6.5-10.1) Neutrophils (%) (Auto) 60.3 % (45.0-75.0) Lymphocytes (%) (Auto) 29.4 % (20.0-45.0) Monocytes (%) (Auto) 6.9 % (1.0-10.0) Eosinophils (%) (Auto) 1.8 % (0.0-3.0) Basophils (%) (Auto) 1.6 % (0.0-2.0) Prothrombin Time 10.1 SEC (9.30-11.50) Prothromb Time International Ratio 1.0 (0.9-1.1) Sodium Level 136 MMOL/L (136-145) Potassium Level 3.7 MMOL/L (3.5-5.1) Chloride Level 103 MMOL/L (98-107) Carbon Dioxide Level 26 MMOL/L (21-32) Anion Gap 8 mmol/L (5-15) Blood Urea Nitrogen 11 mg/dL (7-18) Creatinine 0.8 MG/DL (0.55-1.30) Estimat Glomerular Filtration Rate > 60 mL/min (>60) Glucose Level 290 MG/DL (74-106) H Calcium Level 9.0 MG/DL (8.5-10.1) Pro-B-Type Natriuretic Peptide 27 pg/mL (0-125) Triglycerides Level 123 MG/DL (30-150) Cholesterol Level 133 MG/DL (< 200) LDL Cholesterol 88 mg/dL (<100) HDL Cholesterol 32 MG/DL (40-60) L Cholesterol/HDL Ratio 4.2 (3.3-4.4) Thyroid Stimulating Hormone (TSH) 0.712 uiU/mL (0.358-3.740) Vancomycin Level Trough 8.3 ug/mL (5.0-12.0) Microbiology Date/Time Source Procedure Growth Status 01/09/18 17:35 Blood Blood Culture - Preliminary NO GROWTH AFTER 24 HOURS Resulted 01/09/18 17:20 Blood Blood Culture - Preliminary NO GROWTH AFTER 24 HOURS Resulted Intake and Output 01/10/18 01/11/18 19:00 07:00 Intake Total 850 ml 720 ml Output Total 900 ml Balance -50 ml 720 ml Intake Oral 850 ml 720 ml Output Urine Total 900 ml # Voids 2 Assessment/Plan Problem List: (1) Diabetic foot ulcer Assessment & Plan: Continue vanco and ancef per ID. See podiatry note. Continue post-op shoe. (2) Diabetes mellitus type II, uncontrolled Assessment & Plan: See endocrinology note. Cont levemir, novolog sliding scale and metformin. (3) Chest pain Assessment & Plan: See cardiology note. Stress test in am 01/12/18 Status: not improved IRON ARSHAD January 11, 2018 17:15
[2018-01-11] MEDS: Cephalexin 250mg Cap ORAL SCH ×2 (17:24→21:08)
[2018-01-11] MEDS ORDERED: Cephalexin 500mg cap ORAL SCH (18:00)
[2018-01-11 20:00] VITALS: BP 119/54
[2018-01-11] MEDS ORDERED: Bactrim SS Tab ORAL SCH (21:00)
[2018-01-11] MEDS: Bactrim SS Tab ORAL SCH (21:17)
[2018-01-12] VITALS: BP 102/64
[2018-01-12 04:00] VITALS: BP 134/85
[2018-01-12] MEDS: NovoLOG Insulin Flexpen SUBQ SCH ×6 (06:32→17:17)
[2018-01-12] MEDS: metFORMIN 500mg tab ORAL SCH ×3 (06:42→17:15)
--- NOTE | 2018-01-12 07:08 | General Progress Note ---
Assessment/Plan Problem List: (1) Ulcer of toe due to diabetes ICD Codes: E11.621 - Type 2 diabetes mellitus with foot ulcer; L97.509 - Non- pressure chronic ulcer of other part of unspecified foot with unspecified severity SNOMED: 90388296, [id number], [id number] (2) Uncontrolled diabetes mellitus ICD Codes: E11.65 - Type 2 diabetes mellitus with hyperglycemia SNOMED: 37159013, [id number] Assessment/Plan increase Levemir to 30 units qam continue Novolog 6 units ac tid continue Metformin 500 mg tid continue NISS Subjective Allergies: Coded Allergies: No Known Allergies (Verified Allergy, Unknown, 05/12/11) All Systems: reviewed and negative except above Subjective events noted Objective Last 24 Hour Vital Signs Date Time Temp Pulse Resp B/P (MAP) Pulse Ox O2 Delivery O2 Flow Rate FiO2 01/12/18 04:00 68 01/12/18 04:00 97.5 70 20 134/85 98 Room Air 21 97.5 01/12/18 00:00 74 01/12/18 00:00 97.0 68 20 102/64 95 Room Air 21 97.0 01/11/18 20:00 72 01/11/18 20:00 97.7 74 20 119/54 100 Room Air 21 97.7 01/11/18 19:03 71 18 Room Air 21 01/11/18 16:00 97.8 72 18 117/76 98 Room Air 21 97.8 01/11/18 16:00 91 01/11/18 15:15 97.8 01/11/18 14:16 97.8 01/11/18 12:00 97.8 69 18 144/94 98 Room Air 21 97.8 01/11/18 12:00 64 01/11/18 08:29 144/92 01/11/18 08:02 66 18 Room Air 21 01/11/18 08:00 84 01/11/18 08:00 98.0 64 20 144/92 98 Room Air 21 98.0 Intake and Output 01/11/18 01/12/18 19:00 07:00 Intake Total 760 ml 500 ml Output Total 900 ml Balance 760 ml -400 ml Intake Oral 760 ml 500 ml Output Urine Total 900 ml # Voids 2 Laboratory Tests 01/11/18 09:00: Vancomycin Level Trough 8.3 01/12/18 06:00: White Blood Count [Pending], Red Blood Count [Pending], Hemoglobin [Pending], Hematocrit [Pending], Mean Corpuscular Volume [Pending], Mean Corpuscular Hemoglobin [Pending], Mean Corpuscular Hemoglobin Concent [Pending], Red Cell Distribution Width [Pending], Platelet Count [Pending], Mean Platelet Volume [ Pending], Neutrophils (%) (Auto) [Pending], Lymphocytes (%) (Auto) [Pending], Monocytes (%) (Auto) [Pending], Eosinophils (%) (Auto) [Pending], Basophils (%) (Auto) [Pending], Sodium Level [Pending], Potassium Level [Pending], Chloride Level [Pending], Carbon Dioxide Level [Pending], Blood Urea Nitrogen [Pending], Creatinine [Pending], Estimat Glomerular Filtration Rate [Pending], Glucose Level [Pending], Calcium Level [Pending] Height (Feet): 5 Height (Inches): 9.00 Weight (Pounds): 212 General Appearance: no apparent distress Neck: non-tender Cardiovascular: normal rate Respiratory/Chest: lungs clear Abdomen: normal bowel sounds Objective Current Medications Medications (Trade) Dose Ordered Sig/Dixie Route PRN Reason Start Time Stop Time Status Last Admin Dose Admin Acetaminophen (Tylenol) 650 mg Q4H PRN ORAL Mild Pain/Temp > 100.5 01/10/18 03:30 02/08/18 19:29 01/11/18 14:16 Albuterol/ Ipratropium (Albuterol/ Ipratropium) 3 ml EVERY 4 HOURS PRN HHN Shortness of Breath 01/09/18 19:30 01/14/18 19:29 Aspirin (ASA) 81 mg DAILY ORAL 01/10/18 09:00 02/09/18 08:59 01/11/18 08:29 Cephalexin (Keflex) 500 mg FOUR TIMES A DAY ORAL 01/11/18 18:00 01/18/18 17:59 01/11/18 21:08 Dextrose (Dextrose 50%) 25 ml STAT PRN IV Hypoglycemia 01/10/18 07:15 02/09/18 07:14 Dextrose (Dextrose 50%) 50 ml STAT PRN IV Hypoglycemia 01/10/18 07:15 02/09/18 07:14 Famotidine (Pepcid) 20 mg DAILY ORAL 01/10/18 09:00 02/09/18 08:59 01/11/18 08:29 Heparin Sodium (Porcine) (Heparin 5000 units/ml) 5,000 units EVERY 12 HOURS SUBQ 01/09/18 21:00 02/08/18 20:59 01/11/18 21:17 Insulin Aspart (NovoLOG) BEFORE MEALS AND HS SUBQ 01/09/18 21:00 02/08/18 20:59 01/12/18 06:32 Insulin Aspart (NovoLOG) 6 units NOVOTIAC SUBQ 01/10/18 11:50 02/09/18 11:49 01/12/18 06:33 Insulin Detemir (Levemir) 23 units DAILY SUBQ 01/11/18 09:00 02/09/18 08:59 01/11/18 08:34 Lisinopril (Zestril) 10 mg DAILY ORAL 01/11/18 09:00 02/10/18 08:59 01/11/18 08:29 Metformin HCl (Glucophage) 500 mg TIAC ORAL 01/10/18 11:30 02/09/18 11:29 01/12/18 06:42 Nitroglycerin (Ntg) 0.4 mg Q 5 MINS PRN SL Prn Chest Pain 01/09/18 19:30 02/08/18 19:29 Ondansetron HCl (Zofran) 4 mg Q6H PRN IVP Nausea & Vomiting 01/09/18 19:30 02/08/18 19:29 Polyethylene Glycol (Miralax) 17 gm DAILYPRN PRN ORAL Constipation 01/09/18 19:30 02/08/18 19:29 Regadenoson (Lexiscan) 0.4 mg ONCE PRN IV STRESS TEST 01/11/18 16:00 01/12/18 23:59 Temazepam (Restoril) 15 mg HSPRN PRN ORAL Insomnia 01/09/18 19:30 01/16/18 19:29 Trimethoprim/ Sulfamethoxazole (Bactrim Single Strength) 1 tab EVERY 12 HOURS ORAL 01/11/18 21:00 01/18/18 20:59 01/11/18 21:17 Item Value Date Time Bedside Blood Glucose 260 mg/dl H 01/12/18 0633 Bedside Blood Glucose 184 mg/dl H 01/11/18 2120 Bedside Blood Glucose 115 mg/dl 01/11/18 1639 Bedside Blood Glucose 241 mg/dl H 01/11/18 1130 Bedside Blood Glucose 240 mg/dl H 01/11/18 0834 Bedside Blood Glucose 240 mg/dl H 01/11/18 0630 PAUL MARIE January 12, 2018 07:08
[2018-01-12 07:19] LABS: BASOPHILS % (AUTO) 1.7 % (0.0-2.0); EOSINOPHILS % (AUTO) 1.7 % (0.0-3.0); HEMATOCRIT 45.1 % (42.0-52.0); HEMOGLOBIN 16.3 G/DL (14.2-18.0); LYMPHOCYTES % (AUTO) 33.1 % (20.0-45.0); MEAN CORPUSCULAR VOLUME 91 FL (80-99); MONOCYTES % (AUTO) 7.3 % (1.0-10.0); NEUTROPHILS % (AUTO) 56.4 % (45.0-75.0); PLATELET COUNT 231 K/UL (150-450); RED BLOOD COUNT 4.95 M/UL (4.70-6.10); RED CELL DISTRIBUTION WIDTH 10.4 % (11.6-14.8); WHITE BLOOD COUNT 7.3 K/UL (4.8-10.8)
[2018-01-12 07:28] LABS: ANION GAP 9 mmol/L (5-15); BLOOD UREA NITROGEN 10 mg/dL (7-18); CALCIUM 9.1 MG/DL (8.5-10.1); CARBON DIOXIDE 27 MMOL/L (21-32); CHLORIDE 103 MMOL/L (98-107); CREATININE 0.7 MG/DL (0.55-1.30); POTASSIUM 3.8 MMOL/L (3.5-5.1); SODIUM 139 MMOL/L (136-145)
[2018-01-12 08:00] VITALS: BP 125/77
[2018-01-12] MEDS: Aspirin Baby 81mg ORAL SCH (08:49)
[2018-01-12] MEDS: Bactrim SS Tab ORAL SCH (08:49)
[2018-01-12] MEDS: Lisinopril 10mg tab ORAL SCH (08:49)
[2018-01-12] MEDS: Cephalexin 250mg Cap ORAL SCH ×3 (08:49→17:16)
[2018-01-12] MEDS: Heparin 5000 units/ml inj SUBQ SCH (08:50)
[2018-01-12] MEDS ORDERED: Levemir Flexpen SUBQ SCH (09:00)
[2018-01-12 12:00] VITALS: BP 143/83
--- NOTE | 2018-01-12 13:19 | Pulmonology Progress Note ---
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 need po abx to treat the cellulitis of the toe Subjective ROS Limited/Unobtainable: No Constitutional: Reports: no symptoms HEENT: Repors: no symptoms Allergies: Coded Allergies: No Known Allergies (Verified Allergy, Unknown, 05/12/11) Objective Last 24 Hour Vital Signs Date Time Temp Pulse Resp B/P (MAP) Pulse Ox O2 Delivery O2 Flow Rate FiO2 01/12/18 09:58 97.5 01/12/18 08:59 97.5 01/12/18 08:49 125/77 01/12/18 08:00 74 01/12/18 08:00 97.2 77 20 125/77 98 Room Air 21 97.2 01/12/18 04:00 68 01/12/18 04:00 97.5 70 20 134/85 98 Room Air 21 97.5 01/12/18 00:00 74 01/12/18 00:00 97.0 68 20 102/64 95 Room Air 21 97.0 01/11/18 20:00 72 01/11/18 20:00 97.7 74 20 119/54 100 Room Air 21 97.7 01/11/18 19:03 71 18 Room Air 21 01/11/18 16:00 97.8 72 18 117/76 98 Room Air 21 97.8 01/11/18 16:00 91 01/11/18 14:16 97.8 Intake and Output 01/11/18 01/12/18 19:00 07:00 Intake Total 760 ml 500 ml Output Total 900 ml Balance 760 ml -400 ml Intake Oral 760 ml 500 ml Output Urine Total 900 ml # Voids 2 General Appearance: WD/WN HEENT: normocephalic, atraumatic Respiratory/Chest: chest wall non-tender, lungs clear Cardiovascular: normal peripheral pulses, normal rate Abdomen: normal bowel sounds, soft, non tender Genitourinary: normal external genitalia Extremities: no cyanosis Neurologic/Psychiatric: no motor/sensory deficits Lymphatic: no neck adenopathy Microbiology Date/Time Source Procedure Growth Status 01/09/18 17:35 Blood Blood Culture - Preliminary NO GROWTH AFTER 48 HOURS Resulted 01/09/18 17:20 Blood Blood Culture - Preliminary NO GROWTH AFTER 48 HOURS Resulted Laboratory Tests 01/12/18 06:00: White Blood Count 7.3, Red Blood Count 4.95, Hemoglobin 16.3, Hematocrit 45.1, Mean Corpuscular Volume 91, Mean Corpuscular Hemoglobin 32.8H, Mean Corpuscular Hemoglobin Concent 36.0, Red Cell Distribution Width 10.4L, Platelet Count 231, Mean Platelet Volume 6.8, Neutrophils (%) (Auto) 56.4, Lymphocytes (%) (Auto) 33.1, Monocytes (%) (Auto) 7.3, Eosinophils (%) (Auto) 1.7, Basophils (%) (Auto ) 1.7, Sodium Level 139, Potassium Level 3.8, Chloride Level 103, Carbon Dioxide Level 27, Anion Gap 9, Blood Urea Nitrogen 10, Creatinine 0.7, Estimat Glomerular Filtration Rate > 60, Glucose Level 267H, Calcium Level 9.1 Current Medications Medications (Trade) Dose Ordered Sig/Dixie Route PRN Reason Start Time Stop Time Status Last Admin Dose Admin Acetaminophen (Tylenol) 650 mg Q4H PRN ORAL Mild Pain/Temp > 100.5 01/10/18 03:30 02/08/18 19:29 01/12/18 08:59 Albuterol/ Ipratropium (Albuterol/ Ipratropium) 3 ml EVERY 4 HOURS PRN HHN Shortness of Breath 01/09/18 19:30 01/14/18 19:29 Aspirin (ASA) 81 mg DAILY ORAL 01/10/18 09:00 02/09/18 08:59 01/12/18 08:49 Cephalexin (Keflex) 500 mg FOUR TIMES A DAY ORAL 01/11/18 18:00 01/18/18 17:59 01/12/18 13:00 Dextrose (Dextrose 50%) 25 ml STAT PRN IV Hypoglycemia 01/10/18 07:15 02/09/18 07:14 Dextrose (Dextrose 50%) 50 ml STAT PRN IV Hypoglycemia 01/10/18 07:15 02/09/18 07:14 Famotidine (Pepcid) 20 mg DAILY ORAL 01/10/18 09:00 02/09/18 08:59 01/12/18 08:49 Heparin Sodium (Porcine) (Heparin 5000 units/ml) 5,000 units EVERY 12 HOURS SUBQ 01/09/18 21:00 02/08/18 20:59 01/12/18 08:50 Insulin Aspart (NovoLOG) BEFORE MEALS AND HS SUBQ 01/09/18 21:00 02/08/18 20:59 01/12/18 11:33 Insulin Aspart (NovoLOG) 6 units NOVOTIAC SUBQ 01/10/18 11:50 02/09/18 11:49 01/12/18 06:33 Insulin Detemir (Levemir) 30 units DAILY SUBQ 01/12/18 09:00 02/09/18 08:59 01/12/18 08:57 Lisinopril (Zestril) 10 mg DAILY ORAL 01/11/18 09:00 02/10/18 08:59 01/12/18 08:49 Metformin HCl (Glucophage) 500 mg TIAC ORAL 01/10/18 11:30 02/09/18 11:29 01/12/18 11:30 Nitroglycerin (Ntg) 0.4 mg Q 5 MINS PRN SL Prn Chest Pain 01/09/18 19:30 02/08/18 19:29 Ondansetron HCl (Zofran) 4 mg Q6H PRN IVP Nausea & Vomiting 01/09/18 19:30 02/08/18 19:29 Polyethylene Glycol (Miralax) 17 gm DAILYPRN PRN ORAL Constipation 01/09/18 19:30 02/08/18 19:29 Regadenoson (Lexiscan) 0.4 mg ONCE PRN IV STRESS TEST 01/11/18 16:00 01/12/18 23:59 Temazepam (Restoril) 15 mg HSPRN PRN ORAL Insomnia 01/09/18 19:30 01/16/18 19:29 Trimethoprim/ Sulfamethoxazole (Bactrim Single Strength) 1 tab EVERY 12 HOURS ORAL 01/11/18 21:00 01/18/18 20:59 01/12/18 08:49 Daniela Parra MD January 12, 2018 13:19
[2018-01-12] MEDS ORDERED: NOVOLOG100 UNITS1 SUBQ (13:23)
[2018-01-12] MEDS ORDERED: LEVEMIR FL100 UNIT/1 SUBQ (13:23)
[2018-01-12] MEDS ORDERED: GLUCOPHAGE500 MG ORAL (13:23)
--- NOTE | 2018-01-12 15:00 | Internal Med Progress Note ---
Subjective Physician Name Des Lieberman Attending Physician Des Lieberman MD Current Medications Medications (Trade) Dose Ordered Sig/Dixie Route PRN Reason Start Time Stop Time Status Last Admin Dose Admin Acetaminophen (Tylenol) 650 mg Q4H PRN ORAL Mild Pain/Temp > 100.5 01/10/18 03:30 02/08/18 19:29 01/12/18 08:59 Albuterol/ Ipratropium (Albuterol/ Ipratropium) 3 ml EVERY 4 HOURS PRN HHN Shortness of Breath 01/09/18 19:30 01/14/18 19:29 Aspirin (ASA) 81 mg DAILY ORAL 01/10/18 09:00 02/09/18 08:59 01/12/18 08:49 Cephalexin (Keflex) 500 mg FOUR TIMES A DAY ORAL 01/11/18 18:00 01/18/18 17:59 01/12/18 13:00 Dextrose (Dextrose 50%) 25 ml STAT PRN IV Hypoglycemia 01/10/18 07:15 02/09/18 07:14 Dextrose (Dextrose 50%) 50 ml STAT PRN IV Hypoglycemia 01/10/18 07:15 02/09/18 07:14 Famotidine (Pepcid) 20 mg DAILY ORAL 01/10/18 09:00 02/09/18 08:59 01/12/18 08:49 Heparin Sodium (Porcine) (Heparin 5000 units/ml) 5,000 units EVERY 12 HOURS SUBQ 01/09/18 21:00 02/08/18 20:59 01/12/18 08:50 Insulin Aspart (NovoLOG) BEFORE MEALS AND HS SUBQ 01/09/18 21:00 02/08/18 20:59 01/12/18 11:33 Insulin Aspart (NovoLOG) 6 units NOVOTIAC SUBQ 01/10/18 11:50 02/09/18 11:49 01/12/18 06:33 Insulin Detemir (Levemir) 30 units DAILY SUBQ 01/12/18 09:00 02/09/18 08:59 01/12/18 08:57 Lisinopril (Zestril) 10 mg DAILY ORAL 01/11/18 09:00 02/10/18 08:59 01/12/18 08:49 Metformin HCl (Glucophage) 500 mg TIAC ORAL 01/10/18 11:30 02/09/18 11:29 01/12/18 11:30 Nitroglycerin (Ntg) 0.4 mg Q 5 MINS PRN SL Prn Chest Pain 01/09/18 19:30 02/08/18 19:29 Ondansetron HCl (Zofran) 4 mg Q6H PRN IVP Nausea & Vomiting 01/09/18 19:30 02/08/18 19:29 Polyethylene Glycol (Miralax) 17 gm DAILYPRN PRN ORAL Constipation 01/09/18 19:30 02/08/18 19:29 Regadenoson (Lexiscan) 0.4 mg ONCE PRN IV STRESS TEST 01/11/18 16:00 01/12/18 23:59 Temazepam (Restoril) 15 mg HSPRN PRN ORAL Insomnia 01/09/18 19:30 01/16/18 19:29 Trimethoprim/ Sulfamethoxazole (Bactrim Single Strength) 1 tab EVERY 12 HOURS ORAL 01/11/18 21:00 01/18/18 20:59 01/12/18 08:49 Allergies: Coded Allergies: No Known Allergies (Verified Allergy, Unknown, 05/12/11) Subjective awake responsive, NAD, No CP, No SOB Objective Last Vital Signs Date Time Temp Pulse Resp B/P (MAP) Pulse Ox O2 Delivery O2 Flow Rate FiO2 01/12/18 09:58 97.5 01/12/18 08:49 125/77 01/12/18 08:00 74 01/12/18 08:00 20 98 Room Air 21 Laboratory Tests Test 01/12/18 06:00 White Blood Count 7.3 K/UL (4.8-10.8) Red Blood Count 4.95 M/UL (4.70-6.10) Hemoglobin 16.3 G/DL (14.2-18.0) Hematocrit 45.1 % (42.0-52.0) Mean Corpuscular Volume 91 FL (80-99) Mean Corpuscular Hemoglobin 32.8 PG (27.0-31.0) H Mean Corpuscular Hemoglobin Concent 36.0 G/DL (32.0-36.0) Red Cell Distribution Width 10.4 % (11.6-14.8) L Platelet Count 231 K/UL (150-450) Mean Platelet Volume 6.8 FL (6.5-10.1) Neutrophils (%) (Auto) 56.4 % (45.0-75.0) Lymphocytes (%) (Auto) 33.1 % (20.0-45.0) Monocytes (%) (Auto) 7.3 % (1.0-10.0) Eosinophils (%) (Auto) 1.7 % (0.0-3.0) Basophils (%) (Auto) 1.7 % (0.0-2.0) Sodium Level 139 MMOL/L (136-145) Potassium Level 3.8 MMOL/L (3.5-5.1) Chloride Level 103 MMOL/L (98-107) Carbon Dioxide Level 27 MMOL/L (21-32) Anion Gap 9 mmol/L (5-15) Blood Urea Nitrogen 10 mg/dL (7-18) Creatinine 0.7 MG/DL (0.55-1.30) Estimat Glomerular Filtration Rate > 60 mL/min (>60) Glucose Level 267 MG/DL (74-106) H Calcium Level 9.1 MG/DL (8.5-10.1) Microbiology Date/Time Source Procedure Growth Status 01/09/18 17:35 Blood Blood Culture - Preliminary NO GROWTH AFTER 48 HOURS Resulted 01/09/18 17:20 Blood Blood Culture - Preliminary NO GROWTH AFTER 48 HOURS Resulted Intake and Output 01/11/18 01/12/18 19:00 07:00 Intake Total 760 ml 500 ml Output Total 900 ml Balance 760 ml -400 ml Intake Oral 760 ml 500 ml Output Urine Total 900 ml # Voids 2 Objective General: No acute distress, awake and alert HEENT: NCAT, sclera anicteric, PERRL, EOMI. Neck: Supple, no significant jugular venous distention, Lungs: Good inspiratory effort, clear to auscultation bilaterally, no Wheeze or Rales. Heart: Regular rate and rhythm, normal S1/S2, no murmurs Abdomen: soft, nontender, nondistended. Normoactive bowel sounds. / Rectal: Refused and deferred. Extremities: No Cyanosis , clubbing or edema. Neuro: A&O x 3, Able to move all extremities Skin: warm, no rashes< Right foot 1st toe less erythema. Psych: Normal mood and affect Assessment/Plan Assessment/Plan 1. Chest pain. Stress test negative 2. Hypertension. 3. Palpitation, that could be due to supraventricular tachycardia or premature atrial contractions or premature ventricular contractions. 4. Uncontrolled diabetes type 2. 5. 1st toe right foot cellulitis Plan: DC Home today on oral abx discuss with patient with regard DM diet.. Des Lieberman MD January 12, 2018 15:00
--- NOTE | 2018-01-12 15:19 | Cardiology Report ---
APPROVED REPORT EKG Measurement Heart [id number] Normal sinus rhythm ST elevation, consider inferior injury or acute infarct Abnormal ECG
--- NOTE | 2018-01-12 15:23 | Cardiac Electrophysiology PN ---
Assessment/Plan Assessment/Plan 1. Chest pain at the time of palpitation that was brief. The patient denies any chest pain or shortness of breath at this time. Ruled out for myocardial infarction Stress test today results pending 2. History of hypertension. On lisinopril 10 mg daily. 3. Palpitation, that could be due to supraventricular tachycardia or premature atrial contractions or premature ventricular contractions. 4. Uncontrolled diabetes. 5. Diabetic foot ulcer. Subjective Subjective No CP or SOB in SR.HAD STRESS TEST TODAY. rESULTS PENDING Objective Last 24 Hour Vital Signs Date Time Temp Pulse Resp B/P (MAP) Pulse Ox O2 Delivery O2 Flow Rate FiO2 01/12/18 09:58 97.5 01/12/18 08:59 97.5 01/12/18 08:49 125/77 01/12/18 08:00 74 01/12/18 08:00 97.2 77 20 125/77 98 Room Air 21 97.2 01/12/18 04:00 68 01/12/18 04:00 97.5 70 20 134/85 98 Room Air 21 97.5 01/12/18 00:00 74 01/12/18 00:00 97.0 68 20 102/64 95 Room Air 21 97.0 01/11/18 20:00 72 01/11/18 20:00 97.7 74 20 119/54 100 Room Air 21 97.7 01/11/18 19:03 71 18 Room Air 21 01/11/18 16:00 97.8 72 18 117/76 98 Room Air 21 97.8 01/11/18 16:00 91 Intake and Output 01/11/18 01/12/18 19:00 07:00 Intake Total 760 ml 500 ml Output Total 900 ml Balance 760 ml -400 ml Intake Oral 760 ml 500 ml Output Urine Total 900 ml # Voids 2 Laboratory Tests Test 01/12/18 06:00 White Blood Count 7.3 K/UL (4.8-10.8) Red Blood Count 4.95 M/UL (4.70-6.10) Hemoglobin 16.3 G/DL (14.2-18.0) Hematocrit 45.1 % (42.0-52.0) Mean Corpuscular Volume 91 FL (80-99) Mean Corpuscular Hemoglobin 32.8 PG (27.0-31.0) H Mean Corpuscular Hemoglobin Concent 36.0 G/DL (32.0-36.0) Red Cell Distribution Width 10.4 % (11.6-14.8) L Platelet Count 231 K/UL (150-450) Mean Platelet Volume 6.8 FL (6.5-10.1) Neutrophils (%) (Auto) 56.4 % (45.0-75.0) Lymphocytes (%) (Auto) 33.1 % (20.0-45.0) Monocytes (%) (Auto) 7.3 % (1.0-10.0) Eosinophils (%) (Auto) 1.7 % (0.0-3.0) Basophils (%) (Auto) 1.7 % (0.0-2.0) Sodium Level 139 MMOL/L (136-145) Potassium Level 3.8 MMOL/L (3.5-5.1) Chloride Level 103 MMOL/L (98-107) Carbon Dioxide Level 27 MMOL/L (21-32) Anion Gap 9 mmol/L (5-15) Blood Urea Nitrogen 10 mg/dL (7-18) Creatinine 0.7 MG/DL (0.55-1.30) Estimat Glomerular Filtration Rate > 60 mL/min (>60) Glucose Level 267 MG/DL (74-106) H Calcium Level 9.1 MG/DL (8.5-10.1) Microbiology Date/Time Source Procedure Growth Status 01/09/18 17:35 Blood Blood Culture - Preliminary NO GROWTH AFTER 48 HOURS Resulted 01/09/18 17:20 Blood Blood Culture - Preliminary NO GROWTH AFTER 48 HOURS Resulted Objective HEAD AND NECK: No JVD or carotid bruits. LUNGS: Clear. CARDIOVASCULAR: Regular S1 and S2 with no gallop or murmur. ABDOMEN: Soft. EXTREMITIES: No pitting edema, however, his toe has an ulcer on it. Wyatt Retana MD January 12, 2018 15:23
--- NOTE | 2018-01-12 15:38 | Infectious Diseases Prog Note ---
Assessment/Plan Assessment/Plan Abx: IV Vanco 01/09- CEfepime 01/09- Assessment: L 1st toe cellulitis; improving- patient no longer has purulent discharge and erythema as described by patient. Area of callous and no deep ulcer. Doubt OM- no OM on xray -xray foot: No acute fractures, malalignment, erosions or periostitis are identified. Soft tissues are unremarkable. There is a plantar calcaneal tuberosity enthesophyte noted. There is an enthesophyte at the Achilles insertion as well. Afebrile, no leukocytosis -u/a neg Dm2 w/ neuropathy HTN GERD Plan: -Ok to discharge on PO Bactrim DS 1 tab bid and PO Keflex 500mg qid abx d#4/ 7for cellulitis -monitor Cr and K levels -01/11 SP IV Vanco #3, Ancef #2 -01/10 SP CEfepime #2 -f/u cx -Monitor CBC/BMP, temperatures -podiatry eval -wound care/prevention per hosp protocol Thank you for this consultation. Will continue to follow along with you. Discussed with RN. Subjective Allergies: Coded Allergies: No Known Allergies (Verified Allergy, Unknown, 05/12/11) Subjective afebrile no leukocytosis xray foot pending Objective Vital Signs Last 24 Hour Vital Signs Date Time Temp Pulse Resp B/P (MAP) Pulse Ox O2 Delivery O2 Flow Rate FiO2 01/12/18 09:58 97.5 01/12/18 08:59 97.5 01/12/18 08:49 125/77 01/12/18 08:00 74 01/12/18 08:00 97.2 77 20 125/77 98 Room Air 21 97.2 01/12/18 04:00 68 01/12/18 04:00 97.5 70 20 134/85 98 Room Air 21 97.5 01/12/18 00:00 74 01/12/18 00:00 97.0 68 20 102/64 95 Room Air 21 97.0 01/11/18 20:00 72 01/11/18 20:00 97.7 74 20 119/54 100 Room Air 21 97.7 01/11/18 19:03 71 18 Room Air 21 01/11/18 16:00 97.8 72 18 117/76 98 Room Air 21 97.8 01/11/18 16:00 91 Height (Feet): 5 Height (Inches): 9.00 Weight (Pounds): 212 Objective General Appearance: WD/WN, no apparent distress Lines, tubes and drains: peripheral HEENT: normocephalic, atraumatic Neck: non-tender, normal alignment Respiratory/Chest: chest wall non-tender, lungs clear Cardiovascular/Chest: normal peripheral pulses Abdomen: normal bowel sounds, non tender Genitourinary/Rectal: normal genital exam Extremities: normal range of motion Skin Exam: R 1st toe with callus on dorsal aspect- no currently drainage at this point, no erythema or swelling Microbiology Date/Time Source Procedure Growth Status 01/09/18 17:35 Blood Blood Culture - Preliminary NO GROWTH AFTER 48 HOURS Resulted 01/09/18 17:20 Blood Blood Culture - Preliminary NO GROWTH AFTER 48 HOURS Resulted Laboratory Tests Test 01/12/18 06:00 White Blood Count 7.3 K/UL (4.8-10.8) Red Blood Count 4.95 M/UL (4.70-6.10) Hemoglobin 16.3 G/DL (14.2-18.0) Hematocrit 45.1 % (42.0-52.0) Mean Corpuscular Volume 91 FL (80-99) Mean Corpuscular Hemoglobin 32.8 PG (27.0-31.0) H Mean Corpuscular Hemoglobin Concent 36.0 G/DL (32.0-36.0) Red Cell Distribution Width 10.4 % (11.6-14.8) L Platelet Count 231 K/UL (150-450) Mean Platelet Volume 6.8 FL (6.5-10.1) Neutrophils (%) (Auto) 56.4 % (45.0-75.0) Lymphocytes (%) (Auto) 33.1 % (20.0-45.0) Monocytes (%) (Auto) 7.3 % (1.0-10.0) Eosinophils (%) (Auto) 1.7 % (0.0-3.0) Basophils (%) (Auto) 1.7 % (0.0-2.0) Sodium Level 139 MMOL/L (136-145) Potassium Level 3.8 MMOL/L (3.5-5.1) Chloride Level 103 MMOL/L (98-107) Carbon Dioxide Level 27 MMOL/L (21-32) Anion Gap 9 mmol/L (5-15) Blood Urea Nitrogen 10 mg/dL (7-18) Creatinine 0.7 MG/DL (0.55-1.30) Estimat Glomerular Filtration Rate > 60 mL/min (>60) Glucose Level 267 MG/DL (74-106) H Calcium Level 9.1 MG/DL (8.5-10.1) Current Medications Medications (Trade) Dose Ordered Sig/Dixie Route PRN Reason Start Time Stop Time Status Last Admin Dose Admin Acetaminophen (Tylenol) 650 mg Q4H PRN ORAL Mild Pain/Temp > 100.5 01/10/18 03:30 02/08/18 19:29 01/12/18 08:59 Albuterol/ Ipratropium (Albuterol/ Ipratropium) 3 ml EVERY 4 HOURS PRN HHN Shortness of Breath 01/09/18 19:30 01/14/18 19:29 Aspirin (ASA) 81 mg DAILY ORAL 01/10/18 09:00 02/09/18 08:59 01/12/18 08:49 Cephalexin (Keflex) 500 mg FOUR TIMES A DAY ORAL 01/11/18 18:00 01/18/18 17:59 01/12/18 13:00 Dextrose (Dextrose 50%) 25 ml STAT PRN IV Hypoglycemia 01/10/18 07:15 02/09/18 07:14 Dextrose (Dextrose 50%) 50 ml STAT PRN IV Hypoglycemia 01/10/18 07:15 02/09/18 07:14 Famotidine (Pepcid) 20 mg DAILY ORAL 01/10/18 09:00 02/09/18 08:59 01/12/18 08:49 Heparin Sodium (Porcine) (Heparin 5000 units/ml) 5,000 units EVERY 12 HOURS SUBQ 01/09/18 21:00 02/08/18 20:59 01/12/18 08:50 Insulin Aspart (NovoLOG) BEFORE MEALS AND HS SUBQ 01/09/18 21:00 02/08/18 20:59 01/12/18 11:33 Insulin Aspart (NovoLOG) 6 units NOVOTIAC SUBQ 01/10/18 11:50 02/09/18 11:49 01/12/18 06:33 Insulin Detemir (Levemir) 30 units DAILY SUBQ 01/12/18 09:00 02/09/18 08:59 01/12/18 08:57 Lisinopril (Zestril) 10 mg DAILY ORAL 01/11/18 09:00 02/10/18 08:59 01/12/18 08:49 Metformin HCl (Glucophage) 500 mg TIAC ORAL 01/10/18 11:30 02/09/18 11:29 01/12/18 11:30 Nitroglycerin (Ntg) 0.4 mg Q 5 MINS PRN SL Prn Chest Pain 01/09/18 19:30 02/08/18 19:29 Ondansetron HCl (Zofran) 4 mg Q6H PRN IVP Nausea & Vomiting 01/09/18 19:30 02/08/18 19:29 Polyethylene Glycol (Miralax) 17 gm DAILYPRN PRN ORAL Constipation 01/09/18 19:30 02/08/18 19:29 Regadenoson (Lexiscan) 0.4 mg ONCE PRN IV STRESS TEST 01/11/18 16:00 01/12/18 23:59 Temazepam (Restoril) 15 mg HSPRN PRN ORAL Insomnia 01/09/18 19:30 01/16/18 19:29 Trimethoprim/ Sulfamethoxazole (Bactrim Single Strength) 1 tab EVERY 12 HOURS ORAL 01/11/18 21:00 01/18/18 20:59 01/12/18 08:49 Leticia Cantu M.D. January 12, 2018 15:38
[2018-01-12 16:00] VITALS: BP 118/66
--- NOTE | 2018-01-12 18:25 | Diagnostic Imaging Report ---
Indications: Chest pain Technique: See cardiology report for details of LexiScan stress testing. During LexiScan infusion, IV administration 32.1 mCi 99 M technetium Myoview. SPECT and planar images obtained. SPECT images gated to 8 phases of the cardiac cycle were also obtained, and reformatted into cine images for evaluation of ejection fraction. Subsequent resting images obtained using IV administration 10.4 mCi 99 M technetium Myoview. Comparison: none Findings: Physiologic findings from stress test. Max predicted heart rate was 165 bpm. 85% maximum heart rate 140 bpm. Baseline heart rate was 68 beats per minutes. An infusion heart rate was 96 beats per minutes. Baseline blood pressure was 135/82 and an infusion blood pressure was 127/88. Diffuse induration was 10 seconds. The clinical response to pharmacologic stress was nonischemic. The electrocardiographic response to pharmacologic stress was nonischemic. Perfusion imaging demonstrates no reversible defects to suggest ischemia. No definite fixed defects identified. Ejection fraction calculated to be 62%. IMPRESSION: No evidence of reversible defects to suggest ischemia. No definite fixed defect identified. Ejection fraction calculated be 62%. Clinical and electrocardiographic response to pharmacologic stress noted to be nonischemic.
[2018-01-12 20:00] VITALS: BP 130/75
[2018-01-12] MEDS ORDERED: Tubing IV Secondary IV ONE (22:03)
--- NOTE | 2018-01-15 09:23 | Discharge Summary ---
Discharge Summary Discharge Summary Discharge Summary DATE OF ADMISSION: 01/09/2018 DATE OF DISCHARGE: 01/12/2018 REASON FOR ADMISSION: 57 years old male with history of diabetes mellitus and hypertension ,presented with increased lower extremities discomfort. Patient reported increased pain in the right great toe . He denied recent fevers or chills. Patient also reported intermittent chest discomfort without radiation. Upon evaluation in emergency room vital signs were stable. No leukocytosis, stable hemoglobin and hematocrit stable; renal parameters and electrolytes. Troponin negative. Pro BNP 20. Lactic acid 1.8 , urinalysis +4 glucose, but no evidence of protein in urine and no evidence of urinary tract infection. Glucose 381, anion gap within normal limits, CO2 30. EKG revealed normal sinus regional acute ischemic changes no PVCs no ectopy. Patient admitted with diabetic foot ulcer, hyperglycemia due to uncontrolled diabetes. CONSULTANTS: education administrative assistant Dr. Retana pulmonary Dr. Parra ID specialist Dr. Cortes [employer] Medical Record Coder [facility] COURSE: Patient was admitted to telemetry floor. Serial troponin were negative. Inside Sales Executive closely followed. EKG revealed no acute ischemic changes. Echocardiogram revealed preserved ejection fraction of 60%, no evidence of pericardial effusion, mild left ventricular hypertrophy. Right ventricular systolic pressure of 25. Patient was on aspirin. Nitroglycerin provided as needed. Chest pain resolved. Supplemental oxygen provided as needed to keep pulse oximetry above 92%, pulmonary toilet was on standby. Patient was ruled out for acute AK with serial negative troponin and negative EKG. Subsequently stress test was done, which revealed no evidence of reversible defect to suggest ischemia. No definite fixed defects were identified. Ejection fraction calculated to be 62%. Blood pressure was managed with MELIA inhibitor and was stable. DVT prophylaxis provided. Venous duplex bilateral lower extremity was negative. Inside Sales Executive cleared patient for discharge. Chest pain was brief. Per education administrative assistant , possibly related to palpitation, resolved, and all cardiac workup was negative. Medical Record Coder closely evaluated the patient. Patient was on antibiotics per ID recommendation. Medical Record Coder recommended continue antibiotic and switched to oral prior to discharge. Postoperative shoe provided to off load the site. Patient will need outpatient podiatry follow-up. X-ray of the foot was negative. Venous duplex bilateral lower extremities was negative. Patient was afebrile, no leukocytosis. Blood culture were negative. Patient was on IV antibiotics as per ID recommendations, which were changed to oral upon discharge. Wound care was provided as per pet supplies salesperson recommendations. Patient had diabetes mellitus out of control. Hemoglobin A1c 10.1. Supervisor [employer] closely followed. Blood sugar was managed with a long acting insulin, short-acting pre-meal insulin , metformin and sliding scale of insulin as needed. Patient was educated on compliance with anti-glycemic regimen as well as compliance with diabetic diet. Blood sugar stabilized while in the hospital. All consultants cleared patient for discharge. Prescription provided. Patient was stable for discharge home with outpatient follow-up with a primary care provider next week for further diabetes mellitus management and outpatient follow-up with a pet supplies salesperson for right great toe wound care. FINAL DIAGNOSES: Diabetic foot ulcer R great toe Cellulitis right great toe , improving Callus right hallux Diabetes mellitus out of control Diabetes mellitus with neuropathy Chest pain, atypical Hypertension DISCHARGE MEDICATIONS: See Medication Reconciliation list. DISCHARGE INSTRUCTIONS: Patient was discharged home , reinforced compliance with the medication regimen. Patient to follow-up with a primary care provider next week. Patient to follow-up with pet supplies salesperson for wound care I have been assigned to dictate discharge summary for this account. I was not involved in the patient's management. Ray ([facility] CenterMissy Thorpe NP January 15, 2018 09:23
--- NOTE | 2018-01-15 10:08 | Diagnostic Imaging Report ---
APPROVED REPORT CPT Code: 37905 Present Symptoms Comments: Pain BILATERAL: Imaging reveals a patent deep venous system bilaterally. There is no evidence of thrombus within the femoral, popliteal or tibial segments. The greater saphenous veins are also within normal limits. Doppler indicates normal spontaneous flow within these segments.
== END 2018-01-12 22:04 | disposition home or self-care (01) | DRG 639 ==
LOC: EDBEDREQ 18:17 → EMR 18:28 → 2E 19:10 → EDBEDREQ 19:19
DX: E11.621 Type 2 diabetes mellitus with foot ulcer (principal); L97.519 Non-pressure chronic ulcer of other part of right foot with unspecified severity; L03.031 Cellulitis of right toe; E11.65 Type 2 diabetes mellitus with hyperglycemia; L84 Corns and callosities; E11.40 Type 2 diabetes mellitus with diabetic neuropathy, unspecified; R07.89 Other chest pain; I10 Essential (primary) hypertension; K21.9 Gastro-esophageal reflux disease without esophagitis; R00.2 Palpitations
CPT/HCPCS: 36415; 71045; 78452; 80048; 80053; 80061; 80202; 81003; 82550; 82553; 82962; 83036; 83605; 83880; 84443; 84484; 84550; 85025; 85610; 87040; 93005; 93017; 93306; 93970; 94664; 99285; J1815; J2785; S5561

== ENCOUNTER 2018-02-02 18:38 | Emergency (ER) | payer MEDICARE, MEDICAID ==
[~2018-02-02] VITALS: Ht 175.3 cm; Wt 104.3 kg
[~2018-02-02 18:38] MED LIST changes: +GLUCOPHAGE500 MG ORAL; +LEVEMIR FL100 UNIT/1 SUBQ; +NOVOLOG100 UNITS1 SUBQ
[2018-02-02 19:20] VITALS: BP 129/79
[2018-02-02 19:42] LABS: BASOPHILS % (AUTO) 1.4 % (0.0-2.0); EOSINOPHILS % (AUTO) 0.8 % (0.0-3.0); HEMATOCRIT 43.9 % (42.0-52.0); HEMOGLOBIN 15.2 G/DL (14.2-18.0); LYMPHOCYTES % (AUTO) 21.3 % (20.0-45.0); MEAN CORPUSCULAR VOLUME 91 FL (80-99); MONOCYTES % (AUTO) 6.5 % (1.0-10.0); PLATELET COUNT 225 K/UL (150-450); RED BLOOD COUNT 4.82 M/UL (4.70-6.10); RED CELL DISTRIBUTION WIDTH 10.5 % (11.6-14.8); WHITE BLOOD COUNT 8.4 K/UL (4.8-10.8)
[2018-02-02] MEDS ORDERED: Aspirin Baby 81mg ORAL ONE (19:45)
[2018-02-02 19:55] LABS: ANION GAP 8 mmol/L (5-15); BLOOD UREA NITROGEN 19 mg/dL (7-18); CALCIUM 9.3 MG/DL (8.5-10.1); CARBON DIOXIDE 28 MMOL/L (21-32); CHLORIDE 103 MMOL/L (98-107); CREATININE 1.2 MG/DL (0.55-1.30); INR 0.9 (0.9-1.1); SODIUM 139 MMOL/L (136-145)
--- NOTE | 2018-02-02 20:07 | Diagnostic Imaging Report ---
EXAM: XR Chest, 1 View CLINICAL HISTORY: SOB TECHNIQUE: Frontal view of the chest. COMPARISON: FINDINGS: Lungs: The lungs are grossly clear. Pleural space: The costophrenic angles are sharp. No plain film evidence for pneumothorax. Heart: Unremarkable. Mediastinum: Unremarkable. Bones/joints: Degenerative changes of the thoracic spine. IMPRESSION: No plain film evidence for focal infiltrate.
[2018-02-02 20:10] LABS: ALANINE AMINOTRANSFERASE 24 U/L (12-78); ALBUMIN 3.9 G/DL (3.4-5.0); ALKALINE PHOSPHATASE 83 U/L (46-116); ASPARTATE AMINO TRANSFERASE 11 U/L (15-37); BILIRUBIN,TOTAL 0.5 MG/DL (0.2-1.0); CKMB 1.2 NG/ML (0.0-3.6); CREATINE KINASE 103 U/L (26-308)
[2018-02-02 20:39] VITALS: BP 147/85
[2018-02-02] MEDS ORDERED: metFORMIN 500mg tab ORAL SCH (21:00)
[2018-02-02] MEDS ORDERED: Sodium Chloride 500ML 500 ML IV ONE (21:15)
[2018-02-02] MEDS ORDERED: CEPHALEXIN500 MG ORAL (21:31)
[2018-02-02 21:54] VITALS: BP 145/85
[2018-02-02 22:03] VITALS: BP 145/85
--- NOTE | 2018-02-02 22:20 | Emergency Room Report ---
History of Present Illness General Chief Complaint: Dizziness Source: Patient Present Illness HPI Patient is a 58-year-old male who presented after increased dizziness. The patient prior history of diabetes. He reports having recently been hospitalized for right foot infection. Patient states he had been having continued discomfort to his right foot but had not been able to see a safety representative. He reports taking metformin as well as insulin for diabetes. He denies any recent fever. He denies any numbness to his extremities. Allergies: Coded Allergies: No Known Allergies (Verified Allergy, Unknown, 05/12/11) Patient History Past Medical History: see triage record Reviewed Nursing Documentation: PMH: Agreed; PSxH: Agreed Nursing Documentation-PMH Past Medical History: No History, Except For Hx Cardiac Problems: Yes - Hypercholesterolemia Hx Hypertension: Yes Hx Diabetes: Yes Hx Cancer: No Hx Gastrointestinal Problems: No Hx Neurological Problems: Yes Hx Dizziness: Yes Hx Headaches: Yes Review of Systems All Other Systems: negative except mentioned in HPI Physical Exam Vital Signs Date Time Temp Pulse Resp B/P (MAP) Pulse Ox O2 Delivery O2 Flow Rate FiO2 02/02/18 18:54 98.0 96 16 126/79 97 Room Air 98.1 02/02/18 19:20 2.0 Sp02 EP Interpretation: reviewed, normal General Appearance: normal inspection, well appearing, no apparent distress, alert, GCS 15 Head: atraumatic ENT: normal ENT inspection, hearing grossly normal, normal voice Neck: normal inspection, full range of motion, supple, no bony tend Respiratory: normal inspection, lungs clear, normal breath sounds, no respiratory distress, no retraction, no wheezing Cardiovascular #1: regular rate, rhythm, no edema Gastrointestinal: normal inspection, normal bowel sounds, non tender, soft, no guarding, no hernia Genitourinary: no CVA tenderness Musculoskeletal: normal inspection, back normal, normal range of motion Neurologic: normal inspection, alert, oriented x3, responsive, concert promoter III-XII nml as tested, speech normal Psychiatric: normal inspection, judgement/insight normal, mood/affect normal Skin: no rash, other - healing wound to right great toe without evident discoloration Medical Decision Making Diagnostic Impression: Primary Impression: Diabetic foot ulcer Additional Impressions: Ulcer of toe due to diabetes Diabetes mellitus type II, uncontrolled ER Course Patient presented for generalized weakness. Differential diagnosis included was not limited to anemia, urinary tract infection, electrolyte abnormality, hypothyroidism, myocardial infarction, myasthenia gravis, dehydration, among others. Because of complexity of patient's case laboratory testing and imaging studies were ordered. The patient started on IV fluids. He was noted to be hyperglycemic and was given oral metformin. The patient was noted to have improvement in symptoms. The patient's toe does not appear to be frankly infected however given his recent hospitalization he was put on antibiotics. The patient was advised to follow-up with family physician for podiatry referral. Labs Test 02/02/18 19:10 White Blood Count 8.4 K/UL (4.8-10.8) Red Blood Count 4.82 M/UL (4.70-6.10) Hemoglobin 15.2 G/DL (14.2-18.0) Hematocrit 43.9 % (42.0-52.0) Mean Corpuscular Volume 91 FL (80-99) Mean Corpuscular Hemoglobin 31.4 PG (27.0-31.0) Mean Corpuscular Hemoglobin Concent 34.5 G/DL (32.0-36.0) Red Cell Distribution Width 10.5 % (11.6-14.8) Platelet Count 225 K/UL (150-450) Mean Platelet Volume 7.3 FL (6.5-10.1) Neutrophils (%) (Auto) 70.0 % (45.0-75.0) Lymphocytes (%) (Auto) 21.3 % (20.0-45.0) Monocytes (%) (Auto) 6.5 % (1.0-10.0) Eosinophils (%) (Auto) 0.8 % (0.0-3.0) Basophils (%) (Auto) 1.4 % (0.0-2.0) Prothrombin Time 9.9 SEC (9.30-11.50) Prothromb Time International Ratio 0.9 (0.9-1.1) Activated Partial Thromboplast Time 25 SEC (23-33) Sodium Level 139 MMOL/L (136-145) Potassium Level 4.0 MMOL/L (3.5-5.1) Chloride Level 103 MMOL/L (98-107) Carbon Dioxide Level 28 MMOL/L (21-32) Anion Gap 8 mmol/L (5-15) Blood Urea Nitrogen 19 mg/dL (7-18) Creatinine 1.2 MG/DL (0.55-1.30) Estimat Glomerular Filtration Rate > 60 mL/min (>60) Glucose Level 361 MG/DL (74-106) Calcium Level 9.3 MG/DL (8.5-10.1) Total Bilirubin 0.5 MG/DL (0.2-1.0) Aspartate Amino Transf (AST/SGOT) 11 U/L (15-37) Alanine Aminotransferase (ALT/SGPT) 24 U/L (12-78) Alkaline Phosphatase 83 U/L (46-116) Total Creatine Kinase 103 U/L (26-308) Creatine Kinase MB 1.2 NG/ML (0.0-3.6) Creatine Kinase MB Relative Index 1.1 Troponin I 0.000 ng/mL (0.000-0.056) Pro-B-Type Natriuretic Peptide 25 pg/mL (0-125) Total Protein 7.9 G/DL (6.4-8.2) Albumin 3.9 G/DL (3.4-5.0) Globulin 4.0 g/dL Albumin/Globulin Ratio 1.0 (1.0-2.7) Chest X-Ray Diagnostic Results Chest X-Ray Diagnostic Results : Chest X-Ray Ordered: Yes # of Views/Limited/Complete: 1 View Indication: Other - dizziness EP Interpretation: No Interpretation: no consolidation, no effusion, no acute cardiopulmonary disease Impression: No acute disease Electronically Signed by: Electronically signed by Dr. Laurent Johnston M.D. Last Vital Signs Date Time Temp Pulse Resp B/P (MAP) Pulse Ox O2 Delivery O2 Flow Rate FiO2 02/02/18 22:03 97.9 73 20 145/85 100 Room Air 97.9 02/02/18 20:39 2.0 Status: improved Disposition: HOME, SELF-CARE Condition: Improved Scripts Cephalexin* (KEFLEX*) 500 Mg Capsule 500 MG ORAL EVERY 6 HOURS, #28 CAP Prov: Laurent Johnston MD 02/02/18 Referrals: [facility],REFERRING (PCP) Lawrence Meyer DPM Patient Instructions: Diabetes and Foot Care Additional Instructions: Follow up with primary care physician for podiatry referral if not authorized to see Laurent Johnston MD February 02, 2018 22:20
--- NOTE | 2018-02-05 23:16 | Cardiology Report ---
APPROVED REPORT EKG Measurement Heart [id number] Normal sinus rhythm Cannot rule out Anterior infarct, age undetermined Inferior injury pattern Abnormal ECG
== END 2018-02-02 22:03 | disposition home or self-care (01) ==
LOC: EMR 19:36
DX: E11.65 Type 2 diabetes mellitus with hyperglycemia (principal); E11.621 Type 2 diabetes mellitus with foot ulcer; L97.519 Non-pressure chronic ulcer of other part of right foot with unspecified severity; I10 Essential (primary) hypertension; E78.00 Pure hypercholesterolemia, unspecified
CPT/HCPCS: 36415; 71045; 80053; 82550; 82553; 83880; 84484; 85025; 85610; 85730; 93005; 96374; 96375; 99283; J7040

== ENCOUNTER 2019-03-14 04:38 | Emergency (ER) | payer MEDICARE ==
[~2019-03-14] VITALS: Ht 175.3 cm; Wt 95.3 kg
[~2019-03-14 04:38] MED LIST changes: +CEPHALEXIN500 MG ORAL
[2019-03-14 05:15] VITALS: BP 124/85
[2019-03-14] MEDS ORDERED: Acetaminophen 500mg (ES) tab PO ONE (05:15)
[2019-03-14] MEDS ORDERED: Neosporin Oint Ud Pkt TOP ONE (05:15)
[2019-03-14] MEDS ORDERED: Bactrim-DS 1 tab ORAL ONE (05:15)
--- NOTE | 2019-03-14 05:15 | NUR ---
ED Nurse Note: Patient walked in to ER c/o big calculus on his right toe. Per patient he is diabetic and was drinking too much, has depression history. AAO x4, VSS at this time, skin is dry, warm to touch.
--- NOTE | 2019-03-14 05:23 | Emergency Room Report ---
History of Present Illness General Chief Complaint: Skin Rash/Abscess Source: Patient, Medical Record Present Illness HPI Presents with a painful right big toe. He is a diabetic. He last saw a warehouse distribution specialist 6 months ago. There was some shaving of callus but the patient decided he did not want to go back to the warehouse distribution specialist again. He also states that [facility] is too far for him to travel to get follow-up. He was last seen 2 months ago for his diabetes. He feels chills but more anxiety. He denies any fevers. He states the pain from the callus radiates up into his calf. His last tetanus was less than 10 years ago. He claims his blood sugar was 180 this morning. He is only on oral medications at this time he takes 2 types of medication. He is not on insulin at the moment. The patient has depression and is on medication for this. He denies suicidal homicidal ideation. He is disabled from the depression. He drinks alcohol frequently. He states he does not drink daily. He denies doing other drugs No chest pain, palpitations, nausea, vomiting, diarrhea, dysuria, abdominal pain , shortness of breath, visual changes, headache. Allergies: Coded Allergies: No Known Allergies (Verified Allergy, Unknown, 05/12/11) Patient History Past Medical History: see triage record Social History: Reports: alcohol use; Denies: smoking Social History Narrative born [facility], lives with friend, disabled Reviewed Nursing Documentation: PMH: Agreed; PSxH: Agreed Nursing Documentation-PM Past Medical History: No History, Except For Hx Cardiac Problems: Yes - Hypercholesterolemia Hx Hypertension: Yes Hx Diabetes: Yes Hx Cancer: No Hx Gastrointestinal Problems: No Hx Neurological Problems: Yes Hx Dizziness: Yes Hx Headaches: Yes Review of Systems All Other Systems: negative except mentioned in HPI Physical Exam Vital Signs Date Time Temp Pulse Resp B/P (MAP) Pulse Ox O2 Delivery O2 Flow Rate FiO2 03/14/19 05:02 98.4 80 18 124/85 (98) 97 Room Air Sp02 EP Interpretation: reviewed, normal General Appearance: well appearing, no apparent distress, GCS 15 Head: normocephalic, atraumatic Eyes: bilateral eye PERRL, bilateral eye Scleral Injection ENT: hearing grossly normal, normal voice, moist mucus membranes Neck: full range of motion, supple Respiratory: lungs clear, normal breath sounds, no respiratory distress, speaking full sentences Cardiovascular #1: regular rate, rhythm, no edema Cardiovascular #2: 2+ radial (R), 2+ dorsalis pedis (R) Gastrointestinal: normal inspection, normal bowel sounds, non tender, soft Genitourinary: no CVA tenderness Musculoskeletal: back normal, normal range of motion, no calf tenderness Neurologic: alert, oriented x3, normal gait, grossly normal Psychiatric: mood/affect normal - Slightly flat affect with poor judgment and insight Skin: normal color, warm/dry, other - callous formation R great toe Medical Decision Making Diagnostic Impression: Primary Impression: Callus of foot Additional Impressions: Hyperglycemia Schizoaffective disorder, depressive type ER Course Patient presents with history of diabetes and a foot callus. Differential includes osteomyelitis, hyperglycemia, electrolyte abnormality, foot ulcer, foot callus amongst others. Evaluation will be with x-ray and labs. The patient will be treated with Tylenol and bacitracin. We will assess what his blood sugars at this time. Initial Accu-Chek is 396. This necessitates that we give the patient IV hydration and control his blood sugar better. X-ray without osteomyelitis. Labs with normal white count. Sed rate minimally elevated. Blood glucose 347. No acidosis. Repeat Accu-Chek approved. Discussed treatment plan with patient and the need for follow-up with a erco machine operator or speak specialist. There is no evidence of cellulitis or osteomyelitis at this time. Local care is indicated. Patient stable for outpatient observation and treatment. Laboratory Tests Test 03/14/19 05:30 03/14/19 05:35 White Blood Count 8.7 K/UL (4.8-10.8) Red Blood Count 4.71 M/UL (4.70-6.10) Hemoglobin 15.0 G/DL (14.2-18.0) Hematocrit 44.0 % (42.0-52.0) Mean Corpuscular Volume 93 FL (80-99) Mean Corpuscular Hemoglobin 31.8 PG (27.0-31.0) H Mean Corpuscular Hemoglobin Concent 34.1 G/DL (32.0-36.0) Red Cell Distribution Width 10.3 % (11.6-14.8) L Platelet Count 231 K/UL (150-450) Mean Platelet Volume 7.5 FL (6.5-10.1) Neutrophils (%) (Auto) 61.1 % (45.0-75.0) Lymphocytes (%) (Auto) 28.7 % (20.0-45.0) Monocytes (%) (Auto) 6.8 % (1.0-10.0) Eosinophils (%) (Auto) 2.1 % (0.0-3.0) Basophils (%) (Auto) 1.3 % (0.0-2.0) Erythrocyte Sedimentation Rate Pending Sodium Level 143 MMOL/L (136-145) Potassium Level 4.2 MMOL/L (3.5-5.1) Chloride Level 106 MMOL/L (98-107) Carbon Dioxide Level 27 MMOL/L (21-32) Anion Gap 10 mmol/L (5-15) Blood Urea Nitrogen 14 mg/dL (7-18) Creatinine 1.0 MG/DL (0.55-1.30) Estimate Glomerular Filtration Rate > 60 mL/min (>60) Glucose Level 342 MG/DL (74-106) H Calcium Level 9.3 MG/DL (8.5-10.1) Total Bilirubin 0.7 MG/DL (0.2-1.0) Aspartate Amino Transferase (AST) 14 U/L (15-37) L Alanine Aminotransferase (ALT) 31 U/L (12-78) Alkaline Phosphatase 79 U/L (46-116) Total Protein 7.5 G/DL (6.4-8.2) Albumin 3.7 G/DL (3.4-5.0) Globulin 3.8 g/dL Albumin/Globulin Ratio 1.0 (1.0-2.7) Serum Alcohol < 3 mg/dL Urine Color Pale yellow Urine Appearance Clear Urine pH 6 (4.5-8.0) Urine Specific [place] 1.020 (1.005-1.035) Urine Protein Negative (NEGATIVE) Urine Glucose (UA) 4+ (NEGATIVE) H Urine Ketones Negative (NEGATIVE) Urine Blood Negative (NEGATIVE) Urine Nitrite Negative (NEGATIVE) Urine Bilirubin Negative (NEGATIVE) Urine Urobilinogen Normal MG/DL (0.0-1.0) Urine Leukocyte Esterase Negative (NEGATIVE) Urine RBC 0-2 /HPF (0 - 0) H Urine WBC 0 /HPF (0 - 0) Urine Squamous Epithelial Cells None /LPF (NONE/OCC) Urine Bacteria Few /HPF (NONE) Urine Opiates Screen Negative (NEGATIVE) Urine Barbiturates Screen Negative (NEGATIVE) Phencyclidine (PCP) Screen Negative (NEGATIVE) Urine Amphetamines Screen Negative (NEGATIVE) Urine Benzodiazepines Screen Negative (NEGATIVE) Urine Cocaine Screen Negative (NEGATIVE) Urine Marijuana (THC) Screen Negative (NEGATIVE) Other X-Ray Diagnostic Results Other X-Ray Diagnostic Results : X-Ray ordered: Right foot # of Views/Limited Vs Complete: 3 View Indication: Other EP Interpretation: Yes Interpretation: no dislocation, no soft tissue swelling, no fractures Impression: No acute disease Electronically Signed by: Electronically signed by Laron Richard MD Last Vital Signs Date Time Temp Pulse Resp B/P (MAP) Pulse Ox O2 Delivery O2 Flow Rate FiO2 03/14/19 07:05 98.4 18 124/85 97 Room Air 03/14/19 05:02 80 Status: improved Disposition: HOME, SELF-CARE Condition: Improved Scripts Acetaminophen (Tylenol) 325 Mg Tablet 650 MG ORAL Q6H PRN for Prn Pain/Headache/Temp > 101, #20 TAB 0 Refills Prov: Laron Richard MD 03/14/19 Bacitracin (Bacitracin) 28.4 Gm Oint...g. 1 APPLIC TOPIC BID, #30 GM Prov: Laron Richard MD 03/14/19 Laron Richard MD Mar 14, 2019 05:23
[2019-03-14 05:44] LABS: BASOPHILS % (AUTO) 1.3 % (0.0-2.0); EOSINOPHILS % (AUTO) 2.1 % (0.0-3.0); LYMPHOCYTES % (AUTO) 28.7 % (20.0-45.0); MEAN CORPUSCULAR VOLUME 93 FL (80-99); MONOCYTES % (AUTO) 6.8 % (1.0-10.0); NEUTROPHILS % (AUTO) 61.1 % (45.0-75.0); PLATELET COUNT 231 K/UL (150-450); RED BLOOD COUNT 4.71 M/UL (4.70-6.10); RED CELL DISTRIBUTION WIDTH 10.3 % (11.6-14.8); WHITE BLOOD COUNT 8.7 K/UL (4.8-10.8)
[2019-03-14 05:47] LABS: APPEARANCE,URINE CLEAR; BILIRUBIN, URINE NEGATIVE (NEGATIVE); COLOR,URINE PALE YELLOW; GLUCOSE, URINE (UA) 4+ (NEGATIVE); KETONES,URINE NEGATIVE (NEGATIVE); LEUKOCYTE ESTERASE ,URINE NEGATIVE (NEGATIVE); NITRITE,URINE NEGATIVE (NEGATIVE); PH,URINE 6 (4.5-8.0); PROTEIN,URINE NEGATIVE (NEGATIVE); UROBILINOGEN,URINE NORMAL MG/DL (0.0-1.0)
[2019-03-14 05:57] LABS: ANION GAP 10 mmol/L (5-15); BLOOD UREA NITROGEN 14 mg/dL (7-18); CALCIUM 9.3 MG/DL (8.5-10.1); CARBON DIOXIDE 27 MMOL/L (21-32); CHLORIDE 106 MMOL/L (98-107); POTASSIUM 4.2 MMOL/L (3.5-5.1); SODIUM 143 MMOL/L (136-145)
[2019-03-14 06:02] LABS: ALANINE AMINOTRANSFERASE 31 U/L (12-78); ALBUMIN 3.7 G/DL (3.4-5.0); ALKALINE PHOSPHATASE 79 U/L (46-116); ASPARTATE AMINO TRANSFERASE 14 U/L (15-37); BILIRUBIN,TOTAL 0.7 MG/DL (0.2-1.0)
--- NOTE | 2019-03-14 06:52 | Diagnostic Imaging Report ---
EXAM: XR Right Foot Complete, 3 or More Views CLINICAL HISTORY: OSTEOTOMY TECHNIQUE: Frontal, lateral and oblique views of the right foot. COMPARISON: No relevant prior studies available. FINDINGS: Bones/joints: Small heel spurs at the site of plantar fascia insertion and Achilles tendon insertion into the calcaneus. Mild narrowing of the first MTP joint. No acute fracture. No dislocation. Soft tissues: Unremarkable. No radiopaque foreign body. IMPRESSION: No acute bony abnormality.
[2019-03-14 07:05] VITALS: BP 124/85
[2019-03-14] MEDS ORDERED: BACITRACIN15 GM TOPIC (07:06)
[2019-03-14] MEDS ORDERED: TYLENOL325 MG ORAL (07:06)
--- NOTE | 2019-03-14 07:29 | NUR ---
ER DISCHARGE NOTE: Patient is cleared to be discharged per ERMD, pt is aox4, on room air, with stable vital signs. pt was given dc and prescription instructions, pt was able to verbalize understanding, pt id band and iv site removed without complications. pt is able to ambulate with steady gait. pt took all belongings.
== END 2019-03-14 07:05 | disposition home or self-care (01) ==
LOC: EMR 05:34
DX: L84 Corns and callosities (principal); E11.65 Type 2 diabetes mellitus with hyperglycemia; F25.1 Schizoaffective disorder, depressive type; F41.9 Anxiety disorder, unspecified; E78.00 Pure hypercholesterolemia, unspecified; I10 Essential (primary) hypertension
CPT/HCPCS: 36415; 73630; 80053; 80307; 81001; 82962; 85025; 85651; 96360; 99284; G0480; 80329

== ENCOUNTER 2019-07-06 20:24 | Emergency (ER) | payer BC, MEDICARE ==
[~2019-07-06] VITALS: Ht 170.2 cm; Wt 80.7 kg
[~2019-07-06 20:24] MED LIST changes: +BACITRACIN15 GM TOPIC; +TYLENOL325 MG ORAL
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
[2019-07-06 20:35] VITALS: BP 132/85
--- NOTE | 2019-07-06 20:40 | NUR ---
ED Nurse Note: MCKENNA Perez MD NOTIFIED.
[2019-07-06] MEDS ORDERED: Omnipaque-300 100ml vial INJ PRN (20:45)
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
--- NOTE | 2019-07-06 21:35 | NUR ---
ED Nurse Note: pt out for CT.
[2019-07-06] MEDS ORDERED: Tetracaine 0.5% Opth 4ml Soln RIGHT EYE ONE (21:45)
[2019-07-06] MEDS ORDERED: Fluorescein Strips RIGHT EYE ONE (21:45)
[2019-07-06 21:48] LABS: BASOPHILS % (AUTO) 2.1 % (0.0-2.0); EOSINOPHILS % (AUTO) 2.3 % (0.0-3.0); HEMATOCRIT 40.5 % (42.0-52.0); HEMOGLOBIN 14.3 G/DL (14.2-18.0); LYMPHOCYTES % (AUTO) 32.7 % (20.0-45.0); MEAN CORPUSCULAR VOLUME 90 FL (80-99); MONOCYTES % (AUTO) 7.1 % (1.0-10.0); NEUTROPHILS % (AUTO) 55.8 % (45.0-75.0); PLATELET COUNT 212 K/UL (150-450); RED BLOOD COUNT 4.51 M/UL (4.70-6.10); RED CELL DISTRIBUTION WIDTH 9.6 % (11.6-14.8); WHITE BLOOD COUNT 6.5 K/UL (4.8-10.8)
[2019-07-06 21:50] LABS: ANION GAP 7 mmol/L (5-15); BLOOD UREA NITROGEN 15 mg/dL (7-18); CALCIUM 8.9 MG/DL (8.5-10.1); CARBON DIOXIDE 26 MMOL/L (21-32); CHLORIDE 103 MMOL/L (98-107); SODIUM 136 MMOL/L (136-145)
[2019-07-06 21:53] LABS: ALANINE AMINOTRANSFERASE 24 U/L (12-78); ALBUMIN 3.5 G/DL (3.4-5.0); ALKALINE PHOSPHATASE 78 U/L (46-116); ASPARTATE AMINO TRANSFERASE 14 U/L (15-37); BILIRUBIN,TOTAL 0.8 MG/DL (0.2-1.0)
[2019-07-06 21:55] LABS: APPEARANCE,URINE CLEAR; BILIRUBIN, URINE NEGATIVE (NEGATIVE); COLOR,URINE PALE YELLOW; GLUCOSE, URINE (UA) 4+ (NEGATIVE); KETONES,URINE NEGATIVE (NEGATIVE); LEUKOCYTE ESTERASE ,URINE NEGATIVE (NEGATIVE); NITRITE,URINE NEGATIVE (NEGATIVE); PH,URINE 5 (4.5-8.0); PROTEIN,URINE NEGATIVE (NEGATIVE); UROBILINOGEN,URINE NORMAL MG/DL (0.0-1.0)
--- NOTE | 2019-07-06 22:00 | NUR ---
ED Nurse Note: PT BACK FROM CT
[2019-07-06] MEDS ORDERED: OFLOXACIN10 ML OP (22:13)
[2019-07-06] MEDS ORDERED: metFORMIN 500mg tab ORAL SCH (22:15)
--- NOTE | 2019-07-06 22:31 | Diagnostic Imaging Report ---
History: TRAUMA Exam: CT HEAD Without Contrast Technique more: CTDI is 62.70 mGy and DLP is 1426.40 mGy-cm. Technique more: One or more of the following dose reduction techniques were used: automated exposure control, adjustment of the mA and or kV according to patient size, use of iterative reconstruction technique. Comparison: 12 19 2013 FINDINGS: No intracranial hemorrhage, mass effect or calvarial fracture. The ventricles are within limits and midline. The cleary-white differentiation appears within limits. IMPRESSION: No intracranial hemorrhage, mass effect or calvarial fracture.
--- NOTE | 2019-07-06 22:37 | Diagnostic Imaging Report ---
History: TRAUMA Exam: CT FACIAL Without Contrast Technique more: CTDI is 25.10 mGy and DLP is 612.40 mGy-cm. Technique more: One or more of the following dose reduction techniques were used: automated exposure control, adjustment of the mA and or kV according to patient size, use of iterative reconstruction technique. Comparison: FINDINGS: No acute fracture. Right periorbital and facial soft tissue swelling without radiopaque foreign body. Globes appear intact without retrobulbar stranding. The paranasal sinuses and mastoids are clear. The TMJs appear normally located. IMPRESSION: No acute fracture. Right periorbital and facial soft tissue swelling without radiopaque foreign body.
--- NOTE | 2019-07-06 23:05 | Diagnostic Imaging Report ---
History: TRAUMA Exam: CT CHEST With Contrast Technique more: CTDI is 254.40 mGy and DLP is 1918.60 mGy-cm. Technique more: One or more of the following dose reduction techniques were used: automated exposure control, adjustment of the mA and or kV according to patient size, use of iterative reconstruction technique. Comparison: FINDINGS: Thoracic aorta within limits. No pericardial or pleural effusion. The central airways are patent without focal consolidation. Mild dependent basilar atelectasis. No pneumothorax. No acute fracture identified. IMPRESSION: No evidence of acute traumatic injury. Exam: CT ABDOMEN + PELVIS With Contrast Technique more: CTDI is 254.40 mGy and DLP is 1918.60 mGy-cm. Technique more: One or more of the following dose reduction techniques were used: automated exposure control, adjustment of the mA and or kV according to patient size, use of iterative reconstruction technique. Comparison: FINDINGS: Abdominal solid organs, contracted gallbladder and abdominal aorta appear intact. No bowel dilation or free air. The bladder is distended, clinically correlate. No free fluid. No acute fracture identified. IMPRESSION: No evidence of acute traumatic injury. The bladder is distended, clinically correlate. No free fluid.
[2019-07-07 00:07] VITALS: BP 132/85
== END 2019-07-07 00:08 | disposition home or self-care (01) ==
LOC: EMR 22:40
DX: H16.001 Unspecified corneal ulcer, right eye (principal); S00.83XA Contusion of other part of head, initial encounter; S09.90XA Unspecified injury of head, initial encounter; E78.00 Pure hypercholesterolemia, unspecified; E11.9 Type 2 diabetes mellitus without complications; Z79.84 Long term (current) use of oral hypoglycemic drugs; I10 Essential (primary) hypertension; V03.90XA Pedestrian on foot injured in collision with car, pick-up truck or van, unspecified whether traffic or nontraffic accident, initial encounter; Y92.9 Unspecified place or not applicable
CPT/HCPCS: 36415; 70450; 70486; 71260; 74177; 80053; 80307; 81001; 85025; 96360; 99284; Q9967

== ENCOUNTER 2019-10-15 16:58 | Emergency (ER) | payer MEDICARE ==
[~2019-10-15] VITALS: Ht 175.3 cm; Wt 90.7 kg
[~2019-10-15 16:58] MED LIST changes: +OFLOXACIN10 ML OP
[2019-10-15 17:10] VITALS: BP 127/81
--- NOTE | 2019-10-15 17:10 | NUR ---
ED Nurse Note: Pt walked in d/t left sided abdominal pain 7/10, blurry vision x 3 days. Pt denies N/V/diarrhea. Pt also c/o infection in right big toe d/t his DM. Respirations even and unlabored on room air. Vitals stable as documented.
--- NOTE | 2019-10-15 17:37 | NUR ---
ED Nurse Note: IV inserted, blood and urine sent to lab, fluids started.
[2019-10-15] MEDS ORDERED: Omnipaque-300 100ml vial INJ PRN (17:45)
[2019-10-15 18:08] LABS: BASOPHILS % (AUTO) 1.9 % (0.0-2.0); EOSINOPHILS % (AUTO) 1.5 % (0.0-3.0); HEMATOCRIT 45.5 % (42.0-52.0); HEMOGLOBIN 14.6 G/DL (14.2-18.0); LYMPHOCYTES % (AUTO) 29.1 % (20.0-45.0); MEAN CORPUSCULAR VOLUME 97 FL (80-99); MONOCYTES % (AUTO) 6.8 % (1.0-10.0); NEUTROPHILS % (AUTO) 60.8 % (45.0-75.0); PLATELET COUNT 230 K/UL (150-450); RED BLOOD COUNT 4.67 M/UL (4.70-6.10); RED CELL DISTRIBUTION WIDTH 11.2 % (11.6-14.8); WHITE BLOOD COUNT 6.4 K/UL (4.8-10.8)
[2019-10-15] MEDS ORDERED: METFORMIN HCL500 M1 ORAL (18:10)
[2019-10-15] MEDS ORDERED: TRIAMCINOLONE A15 G2 TP (18:10)
[2019-10-15] MEDS ORDERED: CEPHALEXIN500 M1 ORAL (18:10)
[2019-10-15] MEDS ORDERED: LISINOPRIL5 MG ORAL (18:10)
[2019-10-15 18:21] LABS: ANION GAP 10 mmol/L (5-15); BLOOD UREA NITROGEN 14 mg/dL (7-18); CALCIUM 9.3 MG/DL (8.5-10.1); CARBON DIOXIDE 27 MMOL/L (21-32); CHLORIDE 103 MMOL/L (98-107); CREATININE 0.8 MG/DL (0.55-1.30); POTASSIUM 3.8 MMOL/L (3.5-5.1); SODIUM 140 MMOL/L (136-145)
[2019-10-15 18:22] LABS: APPEARANCE,URINE CLEAR; BILIRUBIN, URINE NEGATIVE (NEGATIVE); COLOR,URINE PALE YELLOW; GLUCOSE, URINE (UA) 4+ (NEGATIVE); KETONES,URINE NEGATIVE (NEGATIVE); LEUKOCYTE ESTERASE ,URINE NEGATIVE (NEGATIVE); NITRITE,URINE NEGATIVE (NEGATIVE); PH,URINE 5 (4.5-8.0); PROTEIN,URINE NEGATIVE (NEGATIVE); UROBILINOGEN,URINE NORMAL MG/DL (0.0-1.0)
[2019-10-15 18:26] LABS: ALANINE AMINOTRANSFERASE 22 U/L (12-78); ALBUMIN 3.7 G/DL (3.4-5.0); ALBUMIN/GLOBULIN RATIO 0.9 (1.0-2.7); ALKALINE PHOSPHATASE 78 U/L (46-116); ASPARTATE AMINO TRANSFERASE 11 U/L (15-37); BILIRUBIN,TOTAL 0.6 MG/DL (0.2-1.0)
--- NOTE | 2019-10-15 18:39 | NUR ---
ED Nurse Note: Pt in CT
--- NOTE | 2019-10-15 18:58 | Emergency Room Report ---
History of Present Illness General Chief Complaint: Abdominal Pain Source: Patient Present Illness HPI This patient states that for the past 3 days he has had left lower quadrant abdominal pain that comes and goes. He states he is also had intermittent constipation. He denies fever or chills. He denies nausea or vomiting. He is also noticed some burning with urination and more urination than usual. He has polyuria and probably frequency. He has diabetes and had been noncompliant with his diabetes medications. However, he was seen today at an outpatient clinic and was given refills on all of his medications to include his metformin and antibiotics for his diabetic foot ulcer. He is concerned that he could have a sexually transmitted disease. He has had some risky behavior. He has no other complaints. Allergies: Coded Allergies: No Known Allergies (Verified Allergy, Unknown, 05/12/11) Patient History Past Medical History: see triage record, DM, HTN Social History: Denies: smoking, alcohol use, drug use Reviewed Nursing Documentation: PMH: Agreed; PSxH: Agreed Nursing Documentation-PMH Past Medical History: No History, Except For Hx Cardiac Problems: Yes - Hypercholesterolemia Hx Hypertension: Yes Hx Diabetes: Yes Hx Cancer: No Hx Gastrointestinal Problems: No Hx Neurological Problems: Yes Hx Dizziness: Yes Hx Headaches: Yes Review of Systems All Other Systems: negative except mentioned in HPI Physical Exam Vital Signs Date Time Temp Pulse Resp B/P (MAP) Pulse Ox O2 Delivery O2 Flow Rate FiO2 10/15/19 17:06 97.9 89 17 127/81 (96) 97 Room Air Sp02 EP Interpretation: reviewed, normal General Appearance: no apparent distress, alert, GCS 15, non-toxic Head: normocephalic, atraumatic Eyes: bilateral eye normal inspection, bilateral eye PERRL ENT: hearing grossly normal, normal pharynx, no angioedema, normal voice Neck: full range of motion, supple/symm/no masses Respiratory: chest non-tender, lungs clear, normal breath sounds, no respiratory distress, no retraction, no accessory muscle use, speaking full sentences Cardiovascular #1: regular rate, rhythm, no edema Gastrointestinal: normal bowel sounds, soft, non-distended, no guarding, no rebound, tenderness - TTP in the LLQ Rectal: deferred Genitourinary: normal inspection, no CVA tenderness Musculoskeletal: back normal, normal range of motion, gait/station normal, non- tender, other - See Skin exam Neurologic: alert, motor strength/tone normal, oriented x3, sensory intact, responsive, speech normal Psychiatric: judgement/insight normal, memory normal, mood/affect normal, no suicidal/homicidal ideation Skin: other - Foot ulcer on R. great toe. Medical Decision Making Diagnostic Impression: Primary Impression: Diabetic foot ulcer Additional Impressions: Hyperglycemia Uncontrolled diabetes mellitus Nonadherence to medication ER Course This patient is noncompliant with his diabetes medications. He had about 5 prescriptions that he brought with him that he obtained at an outpatient clinic that have all of his regular medications in addition to a course of Keflex. He is requesting dispensing of all of the medications because he does not want to pay for them at the pharmacy. He also wants injections of antibiotics and more treatment of his chronic diabetic foot ulcer. Patient was educated that he needed to obtain all of his medications and that has diabetes is out of control and his polyuria is related to his hyperglycemia. He was given IV fluids in the emergency department and repeat blood sugar was under 300. He was also given oral azithromycin and Rocephin IM as he was concerned for STD. I suspect most of his symptoms is related to his poorly controlled diabetes and hyperglycemia. Likely he has become dehydrated and constipated in addition to the hyperglycemia causing his polyuria. The patient was educated on the dangers of medication noncompliance. I did not give the patient oral metformin here in the emergency department as he just had received IV contrast for CT scan. Patient is given close return precautions and follow-up instructions. Laboratory Tests Test 10/15/19 17:30 10/15/19 17:33 Urine Color Pale yellow Urine Appearance Clear Urine pH 5 (4.5-8.0) Urine Specific [place] 1.015 (1.005-1.035) Urine Protein Negative (NEGATIVE) Urine Glucose (UA) 4+ (NEGATIVE) H Urine Ketones Negative (NEGATIVE) Urine Blood Negative (NEGATIVE) Urine Nitrite Negative (NEGATIVE) Urine Bilirubin Negative (NEGATIVE) Urine Urobilinogen Normal MG/DL (0.0-1.0) Urine Leukocyte Esterase Negative (NEGATIVE) White Blood Count 6.4 K/UL (4.8-10.8) Red Blood Count 4.67 M/UL (4.70-6.10) L Hemoglobin 14.6 G/DL (14.2-18.0) Hematocrit 45.5 % (42.0-52.0) Mean Corpuscular Volume 97 FL (80-99) Mean Corpuscular Hemoglobin 31.3 PG (27.0-31.0) H Mean Corpuscular Hemoglobin Concent 32.2 G/DL (32.0-36.0) Red Cell Distribution Width 11.2 % (11.6-14.8) L Platelet Count 230 K/UL (150-450) Mean Platelet Volume 7.4 FL (6.5-10.1) Neutrophils (%) (Auto) 60.8 % (45.0-75.0) Lymphocytes (%) (Auto) 29.1 % (20.0-45.0) Monocytes (%) (Auto) 6.8 % (1.0-10.0) Eosinophils (%) (Auto) 1.5 % (0.0-3.0) Basophils (%) (Auto) 1.9 % (0.0-2.0) Sodium Level 140 MMOL/L (136-145) Potassium Level 3.8 MMOL/L (3.5-5.1) Chloride Level 103 MMOL/L (98-107) Carbon Dioxide Level 27 MMOL/L (21-32) Anion Gap 10 mmol/L (5-15) Blood Urea Nitrogen 14 mg/dL (7-18) Creatinine 0.8 MG/DL (0.55-1.30) Estimate Glomerular Filtration Rate > 60 mL/min (>60) Glucose Level 482 MG/DL (74-106) H Calcium Level 9.3 MG/DL (8.5-10.1) Total Bilirubin 0.6 MG/DL (0.2-1.0) Aspartate Amino Transferase (AST) 11 U/L (15-37) L Alanine Aminotransferase (ALT) 22 U/L (12-78) Alkaline Phosphatase 78 U/L (46-116) Total Protein 7.6 G/DL (6.4-8.2) Albumin 3.7 G/DL (3.4-5.0) Globulin 3.9 g/dL Albumin/Globulin Ratio 0.9 (1.0-2.7) L Lipase 169 U/L (73-393) CT/MRI/US Diagnostic Results CT/MRI/US Diagnostic Results : Imaging Test Ordered: CT abd/pelvis Impression No acute findings. See official report in electronic medical record. Last Vital Signs Date Time Temp Pulse Resp B/P (MAP) Pulse Ox O2 Delivery O2 Flow Rate FiO2 10/15/19 17:10 98.0 85 17 127/81 97 Room Air Status: improved Disposition: HOME, SELF-CARE Condition: Improved Referrals: [facility],REFERRING (PCP) Layne Johnson DO Oct 15, 2019 18:58
--- NOTE | 2019-10-15 19:10 | NUR ---
ED Nurse Note: Report given to DONNY Cassidy. Plan of care endorsed.
--- NOTE | 2019-10-15 19:20 | Diagnostic Imaging Report ---
INDICATION: Abdominal pain TECHNIQUE: Continuous helical transaxial imaging of the abdomen and pelvis was obtained from the lung bases to the pubic symphysis during intravenous contrast administration. Coronal 2-D reformats were also obtained. Study obtained in a Siemens sensation [address] Automatic Exposure Control was utilized. Total Dose length Product (DLP): [address] Dose Index Volume (CTDIvol): 23.5 mGy COMPARISON: 05/12/2011 FINDINGS: Lungs: The visualized lung bases are clear. Liver: There are no focal lesions identified. Main portal vein is widely patent and enhances normally. Gallbladder/biliary system: Gallbladder is contracted. No biliary ductal dilatation is seen nor gallstones.. Spleen: Unremarkable Pancreas: Unremarkable Kidneys: No hydronephrosis identified. Both kidneys enhance symmetrically.. Adrenal glands: Unremarkable Aorta/IVC: Mild calcification of the aorta and iliac arteries noted. Bowel: Appendectomy demonstrated. Bowel gas pattern is nonobstructive. Bladder: Unremarkable Peritoneum: There is no free fluid. Bones: There is narrowing at L5-S1 disc with mild marginal endplate spurs. Hypertrophied facets demonstrated within the lumbar spine. Vertebral endplate osteophytes noted in the thoracic spine. IMPRESSION: No acute findings. Apparent prior appendectomy. Degenerative changes of the spine [facility] has communicated the preliminary results to the Emergency Department. Their findings are largely concordant with this report. The CT scanner at [facility] is accredited by the [employer] and the scans are performed using dose optimization techniques as appropriate to a performed exam including Automatic Exposure control.
[2019-10-15 19:52] VITALS: BP_SYST 123; BP_SYST 145; BP_DIAS 75; BP_DIAS 79
[2019-10-15] MEDS ORDERED: Lidocaine 1% MPF 10mg/ml 5ml INJ ONE (20:15)
[2019-10-15] MEDS ORDERED: Azithromycin 250mg tab ORAL ONE (20:15)
[2019-10-15] MEDS ORDERED: MIRALAX17 G2 ORAL (20:54)
[2019-10-15 21:00] VITALS: BP 123/75
== END 2019-10-15 21:00 | disposition home or self-care (01) ==
LOC: EMR 17:51
DX: E11.65 Type 2 diabetes mellitus with hyperglycemia (principal); E11.621 Type 2 diabetes mellitus with foot ulcer; L97.519 Non-pressure chronic ulcer of other part of right foot with unspecified severity; Z79.84 Long term (current) use of oral hypoglycemic drugs; R10.32 Left lower quadrant pain; R35.8 Other polyuria; I10 Essential (primary) hypertension; E78.00 Pure hypercholesterolemia, unspecified; Z91.14 Patient's other noncompliance with medication regimen
CPT/HCPCS: 36415; 74177; 80053; 81003; 82962; 83690; 85025; 96361; 96372; 96374; 99284; J0696; J7030; Q9967

== ENCOUNTER 2019-12-30 11:05 | Emergency (ER) | payer MEDICARE ==
[~2019-12-30] VITALS: Ht 175.3 cm; Wt 77.1 kg
[~2019-12-30 11:05] MED LIST changes: +CEPHALEXIN500 M1 ORAL; +LISINOPRIL5 MG ORAL; +MIRALAX17 G2 ORAL; +TRIAMCINOLONE A15 G2 TP
--- NOTE | 2019-12-30 11:25 | Emergency Room Report ---
History of Present Illness General Chief Complaint: General Complaint Source: Patient Present Illness HPI This patient states that for the past few days he has had pain in his right foot and right calf. He did see his primary care physician today who sent him here to the emergency department for further evaluation. He denies fever chills. He denies nausea or vomiting. He denies chest pain or shortness of breath. He states he has been taking his normal medications. He has no other complaints. Allergies: Coded Allergies: No Known Allergies (Verified Allergy, Unknown, 05/12/11) Patient History Past Medical History: see triage record, DM, HTN Social History: Denies: smoking, alcohol use, drug use Reviewed Nursing Documentation: PMH: Agreed; PSxH: Agreed Nursing Documentation-PMH Hx Cardiac Problems: Yes - Hypercholesterolemia Hx Hypertension: Yes Hx Diabetes: Yes Hx Cancer: No Hx Gastrointestinal Problems: No Hx Neurological Problems: Yes Hx Dizziness: Yes Hx Headaches: Yes Review of Systems All Other Systems: negative except mentioned in HPI Physical Exam Sp02 EP Interpretation: reviewed, normal General Appearance: no apparent distress, alert, GCS 15, non-toxic Head: normocephalic, atraumatic Eyes: bilateral eye normal inspection ENT: hearing grossly normal, normal pharynx, no angioedema, normal voice Neck: normal inspection, full range of motion Respiratory: no respiratory distress, no retraction, no accessory muscle use, speaking full sentences Cardiovascular #1: regular rate, rhythm, no edema Gastrointestinal: normal inspection, non-distended Rectal: deferred Musculoskeletal: back normal, normal range of motion, calf tenderness - Right. , gait/station normal, non-tender Neurologic: alert, motor strength/tone normal, oriented x3, sensory intact, responsive, speech normal Psychiatric: judgement/insight normal, memory normal, mood/affect normal, no suicidal/homicidal ideation Skin: no rash, normal color Medical Decision Making Diagnostic Impression: Primary Impression: Foot pain Additional Impressions: Neuropathy Hyperglycemia ER Course This patient presents with foot and calf pain. There is no evidence of cellulitis or other infection. I did obtain an ultrasound of the right lower extremity to assess for DVT. There is no evidence of DVT. I did basic laboratory studies which did show a blood glucose of 400. Further discussion with the patient, and he reports that he did not take his metformin today. I suspect the patient is noncompliant with his diabetes regimen and that his pain in his foot is likely neuropathy. Regardless, I did not identify an emergency medical condition. The patient was given his normal dose of 1000 mg of metformin. Is instructed to follow-up with his primary care physician for any further evaluation that is needed for his foot. There is no history of trauma and so imaging is not indicated. The patient is instructed to follow-up with his primary care physician. Laboratory Tests Test 12/30/19 11:41 White Blood Count 5.9 K/UL (4.8-10.8) Red Blood Count 5.14 M/UL (4.70-6.10) Hemoglobin 16.2 G/DL (14.2-18.0) Hematocrit 45.1 % (42.0-52.0) Mean Corpuscular Volume 88 FL (80-99) Mean Corpuscular Hemoglobin 31.5 PG (27.0-31.0) H Mean Corpuscular Hemoglobin Concent 35.8 G/DL (32.0-36.0) Red Cell Distribution Width 9.9 % (11.6-14.8) L Platelet Count 217 K/UL (150-450) Mean Platelet Volume 7.2 FL (6.5-10.1) Neutrophils (%) (Auto) 58.5 % (45.0-75.0) Lymphocytes (%) (Auto) 33.3 % (20.0-45.0) Monocytes (%) (Auto) 5.0 % (1.0-10.0) Eosinophils (%) (Auto) 1.7 % (0.0-3.0) Basophils (%) (Auto) 1.5 % (0.0-2.0) Sodium Level 137 MMOL/L (136-145) Potassium Level 3.9 MMOL/L (3.5-5.1) Chloride Level 101 MMOL/L (98-107) Carbon Dioxide Level 27 MMOL/L (21-32) Anion Gap 9 mmol/L (5-15) Blood Urea Nitrogen 15 mg/dL (7-18) Creatinine 0.9 MG/DL (0.55-1.30) Estimated Glomerular Filtration Rate > 60 mL/min (>60) Glucose Level 414 MG/DL (74-106) H Calcium Level 9.3 MG/DL (8.5-10.1) CT/MRI/US Diagnostic Results CT/MRI/US Diagnostic Results : Imaging Test Ordered: RLE US: Impression No DVT. See official report in the EMR. Status: improved Disposition: HOME, SELF-CARE Condition: Improved Layne Johnson DO Dec 30, 2019 11:25
[2019-12-30 11:27] VITALS: BP 130/72
[2019-12-30 11:53] LABS: BASOPHILS % (AUTO) 1.5 % (0.0-2.0); EOSINOPHILS % (AUTO) 1.7 % (0.0-3.0); HEMATOCRIT 45.1 % (42.0-52.0); HEMOGLOBIN 16.2 G/DL (14.2-18.0); LYMPHOCYTES % (AUTO) 33.3 % (20.0-45.0); MEAN CORPUSCULAR VOLUME 88 FL (80-99); NEUTROPHILS % (AUTO) 58.5 % (45.0-75.0); PLATELET COUNT 217 K/UL (150-450); RED BLOOD COUNT 5.14 M/UL (4.70-6.10); RED CELL DISTRIBUTION WIDTH 9.9 % (11.6-14.8); WHITE BLOOD COUNT 5.9 K/UL (4.8-10.8)
[2019-12-30 12:02] LABS: ANION GAP 9 mmol/L (5-15); BLOOD UREA NITROGEN 15 mg/dL (7-18); CALCIUM 9.3 MG/DL (8.5-10.1); CARBON DIOXIDE 27 MMOL/L (21-32); CHLORIDE 101 MMOL/L (98-107); CREATININE 0.9 MG/DL (0.55-1.30); POTASSIUM 3.9 MMOL/L (3.5-5.1); SODIUM 137 MMOL/L (136-145)
[2019-12-30] MEDS ORDERED: metFORMIN 500mg tab ORAL ONE (12:30)
[2019-12-30 12:54] VITALS: BP 124/71
--- NOTE | 2019-12-30 15:01 | Diagnostic Imaging Report ---
Indication: Right leg pain and edema Technique: Grayscale and duplex images of the right lower extremity veins Comparison: None Findings: On the right, grayscale and duplex images demonstrate no evidence of intraluminal thrombus. Normal phasic Doppler waveforms, demonstrating normal augmentation response and no evidence of valvular insufficiency. Greater saphenous vein(s) and tibial veins are patent. Normal compressibility. Impression: Negative for evidence of lower extremity deep venous thrombosis on the right
== END 2019-12-30 12:55 | disposition home or self-care (01) ==
LOC: EMR 11:35
DX: M25.571 Pain in right ankle and joints of right foot (principal); E11.9 Type 2 diabetes mellitus without complications; I10 Essential (primary) hypertension; E78.00 Pure hypercholesterolemia, unspecified; R60.0 Localized edema
CPT/HCPCS: 36415; 80048; 85025; 93971; 99284

== ENCOUNTER 2020-08-31 11:36 | Emergency (ER) | payer MEDICARE ==
[~2020-08-31] VITALS: Ht 175.3 cm; Wt 95.3 kg
[~2020-08-31 11:36] MED LIST changes: +COLACE100 MG ORAL; +FLOMAX0.4 MG ORAL
[2020-08-31 12:03] VITALS: BP 95/65
--- NOTE | 2020-08-31 12:03 | NUR ---
CAME TO ER COMPLAINTS OF POSSIBLE BLADDER INFECTION DENIES ANY NAUSEA VOMOTING OR DIARRHEA
[2020-08-31 12:41] LABS: APPEARANCE,URINE CLEAR; BILIRUBIN, URINE NEGATIVE (NEGATIVE); COLOR,URINE PALE YELLOW; GLUCOSE, URINE (UA) 4+ (NEGATIVE); KETONES,URINE 3+ (NEGATIVE); LEUKOCYTE ESTERASE ,URINE NEGATIVE (NEGATIVE); NITRITE,URINE NEGATIVE (NEGATIVE); PH,URINE 6 (4.5-8.0); PROTEIN,URINE 1+ (NEGATIVE); UROBILINOGEN,URINE NORMAL MG/DL (0.0-1.0)
--- NOTE | 2020-08-31 13:00 | Diagnostic Imaging Report ---
Indication: Chest pain Technique: One view of the chest Comparison: 02/02/2018 Findings: Lungs and pleural spaces are clear. Heart size is normal. No significant change Impression: No acute process
[2020-08-31] MEDS ORDERED: Ciprofloxacin 500mg tab ORAL ONE (13:15)
[2020-08-31 13:21] LABS: BASOPHILS % (AUTO) 1.7 % (0.0-2.0); EOSINOPHILS % (AUTO) 0.3 % (0.0-3.0); HEMATOCRIT 45.3 % (42.0-52.0); HEMOGLOBIN 15.5 G/DL (14.2-18.0); LYMPHOCYTES % (AUTO) 19.1 % (20.0-45.0); MEAN CORPUSCULAR VOLUME 93 FL (80-99); MONOCYTES % (AUTO) 12.7 % (1.0-10.0); NEUTROPHILS % (AUTO) 66.2 % (45.0-75.0); PLATELET COUNT 184 K/UL (150-450); RED BLOOD COUNT 4.88 M/UL (4.70-6.10); RED CELL DISTRIBUTION WIDTH 10.5 % (11.6-14.8); WHITE BLOOD COUNT 6.2 K/UL (4.8-10.8)
[2020-08-31 13:31] LABS: ALANINE AMINOTRANSFERASE 22 U/L (12-78); ALBUMIN 3.4 G/DL (3.4-5.0); ALBUMIN/GLOBULIN RATIO 0.9 (1.0-2.7); ALKALINE PHOSPHATASE 74 U/L (46-116); ANION GAP 7 mmol/L (5-15); ASPARTATE AMINO TRANSFERASE 12 U/L (15-37); BILIRUBIN,TOTAL 0.6 MG/DL (0.2-1.0); BLOOD UREA NITROGEN 16 mg/dL (7-18); CALCIUM 8.3 MG/DL (8.5-10.1); CARBON DIOXIDE 28 MMOL/L (21-32); CHLORIDE 100 MMOL/L (98-107); CREATININE 1.2 MG/DL (0.55-1.30); POTASSIUM 4.9 MMOL/L (3.5-5.1); SODIUM 135 MMOL/L (136-145)
[2020-08-31] MEDS ORDERED: Insulin Human Regular 100units/ml 3ml IV ONE (13:45)
[2020-08-31] MEDS ORDERED: Insulin Human Regular 100units/ml 3ml SUBQ ONE (13:45)
--- NOTE | 2020-08-31 14:08 | Emergency Room Report ---
History of Present Illness General Chief Complaint: Abdominal Pain Source: Patient Present Illness HPI 60-year-old male with past medical history of diabetes, hypertension, BPH, schizophrenia, dyslipidemia who presents to the emergency department with multiple complaints. First complaint is productive cough with yellow sputum x4 days. Second complaint is abdominal pain and dysuria for 1 month. No aggravating or alleviating factors. Denies nausea, vomiting, diarrhea, hematuria, melena, hematochezia, headache, chest pain, hemoptysis, rash or any other symptoms Denies recent travel or sick contacts/Covid exposures. He reports that he has been compliant with his medications The patient's symptoms were gradual onset, severity was moderate, duration since 30 days. Quality: Burning, productive cough Past medical history: Diabetes, hypertension, BPH, schizo, dyslipidemia Past surgical history: Denies Smoking: Denies Alcohol use: Denies Drug use: Denies Review of systems: CONST: No fevers or chills, No night sweats PULMONARY: ++ productive cough, No shortness of breath CARDIAC: No chest pain, No palpitations GI: No vomiting, No diarrhea , No melena_or_BRBPR : ++ dysuria, No hematuria, No discharge NEURO: No new_focal_weakness_or_numbness, No confusion, No vision changes 14 point Review of Systems is otherwise negative except per HPI Physical Exam: GENERAL: Awake_alert_ nontoxic, no acute distress Spo2 98% on RA -normal EYES: Extraocular muscles are intact. Conjunctivae clear. Lids without swelling ENT: External nose and ear normal_in_appearance. Oropharynx clear. Head_atraumatic, Moist_oral_mucosa NECK: No JVD. No meningismus. No thyromegaly. Supple. Trachea midline RESP: Normal respiratory effort. Symmetric rise. No stridor. Clear_to_auscultation_No_rales_No_wheezes. Speaks in full and complete sentences. CARDIAC: Regular rate and regular rhytm. No_significant pedal edema. ABDOMEN: Soft. Nondistended. Nontender_No_rebound_or_guarding. No palpable mass : penis without rash, testicles descended without tenderness or swelling, testicles with normal lie. Chaperoned with nurse Redman at bedside. MSK: Normal muscle tone, without rigidity. Extremities without asymmetric deformity or swelling. SKIN: Warm and dry. No visible cyanosis or pallor NEUROLOGIC: Alert, oriented x3. Motor_and_sensation_grossly_intact. No truncal ataxia. Gait_normal Psych: Normal mood and affect, normal judgment and insight - COORDINATION OF CARE Case was discussed with: Patient Any labs and imaging that were ordered were interpreted as part of the medical decision making: Medical Decision Making/Plan: Differential diagnosis includes gastritis, UTI, prostatitis, appendicitis, diverticulitis,kidney stone, small bowel obstruction, volvulus, AAA, pancreatitis, among others. Patient is well appearing with stable vital signs. Abdominal exam is non peritoneal with no guarding or rebound. No palpable abdominal mass or CVA tenderness palpation. Labs show hyperglycemia without evidence of DKA. Doubt HHS. Patient received insulin and fluids here in the emergency department. Repeat Accu-Chek down trended in the 300s. UA is not convincing for UTI, however we will treat the patient for prostatitis given his history of BPH. Will treat with Levaquin. He denies concern for sexually transmitted infection. Chest x-ray was performed due to patient's complaint of productive cough. Negative for pneumonia. Suspect viral etiology. Based on the patients presenting signs, symptoms, exam, and risk factors (living in an area endemic for a coronavirus outbreak = [place]), the patient has been screened for coronavirus infection and is suspected of having COVID 19.The patient is nontoxic and well-appearing and has no significant shortness of breath or fever . The patient exhibits no evidence of respiratory distress. COVID swab sent. Patient was nontoxic with benign vital signs. Patient did not meet admission criteria and was stable for outpatient therapy. Patient was instructed to home quarantine for 14 days or until 3 days after their last fever, whichever is longer. Appropriate precautions were given. Strict return precautions given, including but limited to: Patient educated to notify a healthcare professional if they develop further symptoms that include chest pain, palpitations, significant SOB, fever, or other concerning symptoms. Discussed supportive care with rest, hydration, frequent handwashing and Tylenol and Motrin [id number] as needed for pain or fevers. Discussed strict return precautions. Verbal discharge with written instructions were given for COVID- 19. Patient is instructed to follow up with their primary care provider in 1-2 days, or return to the ED for worsening symptoms. Return to ED precautions were given. Allergies: Coded Allergies: No Known Allergies (Verified Allergy, Unknown, 05/12/11) COVID-19 Screening Contact w/high risk pt: No Recent Travel to affected area: No Experienced COVID-19 symptoms?: No COVID-19 Testing performed [employer]: No Nursing Documentation-PMH Past Medical History: No History, Except For Hx Cardiac Problems: Yes - Hypercholesterolemia Hx Hypertension: Yes Hx Diabetes: Yes Hx Cancer: No Hx Gastrointestinal Problems: No Hx Neurological Problems: Yes Hx Dizziness: Yes Hx Headaches: Yes Physical Exam Vital Signs Date Time Temp Pulse Resp B/P (MAP) Pulse Ox O2 Delivery O2 Flow Rate FiO2 08/31/20 11:42 98.8 98 16 95/65 (75) 96 Room Air Sp02 EP Interpretation: reviewed, normal Medical Decision Making Diagnostic Impression: Primary Impression: Abdominal pain Additional Impressions: Uncontrolled diabetes mellitus Dysuria Enlarged prostate Cough Suspected COVID-19 virus infection Chest X-Ray Diagnostic Results Chest X-Ray Diagnostic Results : PA Scribe Text Chest X-Ray: Views: [ 1 ] view(s) Indication: Cough Findings: Normal heart size. Mediastinum normal. No infiltrate. Impression: No acute disease The X-ray(s) were independently viewed and interpreted contemporaneously Electronically signed by Shy sol DO Reevaluation Time: 14:18 Last Vital Signs Date Time Temp Pulse Resp B/P (MAP) Pulse Ox O2 Delivery O2 Flow Rate FiO2 08/31/20 12:03 98.8 78 16 95/65 96 Room Air Status: improved Disposition: HOME, SELF-CARE Admit Decision Time: 14:18 Condition: Stable Scripts Metformin Hcl* (METFORMIN HCL*) 500 Mg Tablet 500 MG ORAL TWICE A DAY, #30 TAB Prov: Shy Salinas.O. 08/31/20 Ondansetron* (ZOFRAN*) 4 Mg Tablet 4 MG ORAL Q6H PRN for Nausea & Vomiting for 3 Days, #12 TAB Prov: Shy Salinas.Donte. 08/31/20 Levofloxacin (LEVOFLOXACIN*) 500 Mg Tablet 500 MG ORAL DAILY for 14 Days, #28 TAB Prov: Shy Salinas.Donte. 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 Follow-up with your doctor sooner if your condition requires a more timely clinical reevaluation. Return to the emergency department immediately if you feel that your condition is worsening or if you have any new or concerning symptoms. Review your discharge instructions and take any prescriptions given as instructed. [facility] PROVIDES FREE OR LOW-COST HEALTH SERVICES TO PEOPLE WHO CAN SHOW PROOF THAT THEY LIVE IN [facility]. TO FIND MORE CLINICS PARTNERED WITH THE [facility] TO PROVIDE SERVICE, PLEASE CALL . You had a urine culture done to evaluate for specific types of bacteria associated with your urinary infection. You were given an antibiotic that should treat most bacteria that usually occur with a urinary infection, but there is always the possibility of antibiotic resistance. You will receive a telephone call if it is positive. If you do not receive a call, they are likely negative, but you should return to medical records to get your results to be sure, or have your primary doctor obtain them from our hospital, and especially if you are having persistent symptoms. If you are having persistent symptoms and are not able to get a hold of your culture results or your regular doctor you should return to the ER for a reevaluation. Shy Salinas D.O. Aug 31, 2020 14:08
[2020-08-31] MEDS ORDERED: LEVOFLOXACIN500 MG ORAL (14:20)
[2020-08-31] MEDS ORDERED: ZOFRAN4 M3 ORAL (14:20)
[2020-08-31] MEDS ORDERED: METFORMIN HCL500 M1 ORAL (14:20)
[2020-08-31 14:45] VITALS: BP 95/65
== END 2020-08-31 14:46 | disposition home or self-care (01) ==
LOC: EMR 14:11
DX: R10.9 Unspecified abdominal pain (principal); E11.65 Type 2 diabetes mellitus with hyperglycemia; N40.0 Benign prostatic hyperplasia without lower urinary tract symptoms; R30.0 Dysuria; Z20.828 Contact with and (suspected) exposure to other viral communicable diseases; R05 Cough; F20.9 Schizophrenia, unspecified; E78.5 Hyperlipidemia, unspecified; E78.00 Pure hypercholesterolemia, unspecified; I10 Essential (primary) hypertension
CPT/HCPCS: 36415; 71045; 80053; 81003; 82962; 83690; 85025; 96361; 96374; 99284; J1815; J7030; U0004

== ENCOUNTER 2020-09-08 14:20 | Emergency (ER) | payer MEDICARE ==
[~2020-09-08] VITALS: Ht 175.3 cm; Wt 94.8 kg
[~2020-09-08 14:20] MED LIST changes: +LEVOFLOXACIN500 MG ORAL; +ZOFRAN4 M3 ORAL
[2020-09-08 14:35] VITALS: BP 171/91
--- NOTE | 2020-09-08 15:00 | Emergency Room Report ---
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 Patient History Past Medical History: see triage record Reviewed Nursing Documentation: PMH: Agreed; PSxH: Agreed Nursing Documentation-PMH Past Medical History: No History, Except For Hx Cardiac Problems: Yes - Hypercholesterolemia Hx Hypertension: Yes Hx Diabetes: Yes Hx Cancer: No Hx Gastrointestinal Problems: No Hx Neurological Problems: Yes Hx Dizziness: Yes Hx Headaches: Yes Review of Systems All Other Systems: negative except mentioned in HPI Physical Exam Vital Signs Date Time Temp Pulse Resp B/P (MAP) Pulse Ox O2 Delivery O2 Flow Rate FiO2 09/08/20 14:25 98.2 115 18 104/69 (81) 95 Room Air Sp02 EP Interpretation: reviewed, normal General Appearance: well appearing, no apparent distress, alert Head: normocephalic, atraumatic Eyes: bilateral eye PERRL, bilateral eye EOMI ENT: uvula midline, dry mucus membranes Neck: supple, thyroid normal, supple/symm/no masses Respiratory: lungs clear, no respiratory distress, no retraction, no accessory muscle use Cardiovascular #1: normal peripheral pulses, no edema, no gallop, no murmur, tachycardia Gastrointestinal: non tender, soft, no guarding, no rebound Musculoskeletal: normal inspection Neurologic: alert, oriented x3 Psychiatric: mood/affect normal Skin: no rash, warm/dry Medical Decision Making Diagnostic Impression: Primary Impression: COVID-19 Additional Impression: COVID-19 virus detected ER Course 60-year-old male presents with cough, congestion, fatigue, patient found to be Covid positive patient resuscitated with 2 L NS, patient improved Patient feels better sleeping comfortably no requirements for oxygen Patient states he now wants a bed to sleep and patient counseled that there is no beds available No indications for acute admission at this time patient given strict return precaution Covid handout provided to patient Disposition home with return precautions follow-up with PCP Laboratory Tests Test 09/08/20 14:45 09/08/20 16:00 White Blood Count 14.2 K/UL (4.8-10.8) H Red Blood Count 4.99 M/UL (4.70-6.10) Hemoglobin 15.9 G/DL (14.2-18.0) Hematocrit 43.5 % (42.0-52.0) Mean Corpuscular Volume 87 FL (80-99) Mean Corpuscular Hemoglobin 31.9 PG (27.0-31.0) H Mean Corpuscular Hemoglobin Concent 36.6 G/DL (32.0-36.0) H Red Cell Distribution Width 11.1 % (11.6-14.8) L Platelet Count 319 K/UL (150-450) Mean Platelet Volume 6.6 FL (6.5-10.1) Neutrophils (%) (Auto) 85.2 % (45.0-75.0) H Lymphocytes (%) (Auto) 9.1 % (20.0-45.0) L Monocytes (%) (Auto) 5.2 % (1.0-10.0) Eosinophils (%) (Auto) 0.1 % (0.0-3.0) Basophils (%) (Auto) 0.4 % (0.0-2.0) Urine Color Yellow Urine Appearance Clear Urine pH 5 (4.5-8.0) Urine Specific [place] 1.010 (1.005-1.035) Urine Protein 2+ (NEGATIVE) H Urine Glucose (UA) 4+ (NEGATIVE) H Urine Ketones 3+ (NEGATIVE) H Urine Blood 2+ (NEGATIVE) H Urine Nitrite Negative (NEGATIVE) Urine Bilirubin Negative (NEGATIVE) Urine Urobilinogen Normal MG/DL (0.0-1.0) Urine Leukocyte Esterase Negative (NEGATIVE) Urine RBC 2-4 /HPF (0 - 0) H Urine WBC 0-2 /HPF (0 - 0) Urine Squamous Epithelial Cells None /LPF (NONE/OCC) Urine Bacteria Occasional /HPF (NONE) Sodium Level 132 MMOL/L (136-145) L Potassium Level 4.7 MMOL/L (3.5-5.1) Chloride Level 93 MMOL/L (98-107) L Carbon Dioxide Level 32 MMOL/L (21-32) Anion Gap 7 mmol/L (5-15) Blood Urea Nitrogen 20 mg/dL (7-18) H Creatinine 1.2 MG/DL (0.55-1.30) Estimated Glomerular Filtration Rate > 60 mL/min (>60) Glucose Level 437 MG/DL (74-106) H Lactic Acid Level 2.80 mmol/L (0.4-2.0) H 1.90 mmol/L (0.66-2.22) Calcium Level 8.8 MG/DL (8.5-10.1) Phosphorus Level 3.3 MG/DL (2.5-4.9) Magnesium Level 2.0 MG/DL (1.8-2.4) Total Bilirubin 1.1 MG/DL (0.2-1.0) H Direct Bilirubin 0.4 MG/DL (0.0-0.3) H Aspartate Amino Transferase (AST) 25 U/L (15-37) Alanine Aminotransferase (ALT) 25 U/L (12-78) Alkaline Phosphatase 87 U/L (46-116) Total Protein 8.3 G/DL (6.4-8.2) H Albumin 2.8 G/DL (3.4-5.0) L Globulin 5.5 g/dL Albumin/Globulin Ratio 0.5 (1.0-2.7) L Microbiology Date/Time Source Procedure Growth Status 09/08/20 14:45 Nasopharynx SARS-CoV-2 RdRp Gene Assay - Final Complete EKG Diagnostic Results EKG Time: 14:41 EP Interpretation: Sinus tachycardia, rate 103, QTc 440, no acute ST elevations, normal axis Rhythm Strip Diag. Results Rhythm Strip Time: 15:00 EP Interpretation: yes Rate: 103 Rhythm: other - Sinus tachycardia Last Vital Signs Date Time Temp Pulse Resp B/P (MAP) Pulse Ox O2 Delivery O2 Flow Rate FiO2 09/08/20 14:35 115 18 Room Air 09/08/20 14:25 98.2 104/69 (81) 95 Disposition: HOME, SELF-CARE Condition: Stable Referrals: [facility] Indira Newman. [facility] Patient Instructions: Upper Respiratory Infection, Adult, [id number] Additional Instructions: The patient was provided with discharge instructions, notified to follow-up with a primary care doctor and or specialist in the next 24-48 hours, and to return to the ED if they have worsening of their symptoms. Please note that this report is being documented using DRAGON technology. This can lead to erroneous entry secondary to incorrect interpretation by the dictating instrument. Alexey Perez MD Sep 08, 2020 15:00
--- NOTE | 2020-09-08 15:02 | NUR ---
ED Nurse Note: Collected blood and urine then sent.
--- NOTE | 2020-09-08 15:06 | NUR ---
ED Nurse Note: Pt ambulated to ed c/o fever, cough, not able to eat for 7 days, and has stomache. pt appears weak; diabetic. AAO x4. ambulates with steady gait with non labored breathing.
--- NOTE | 2020-09-08 15:10 | NUR ---
ED Nurse Note: Rapid covid swab sent.
[2020-09-08 15:25] LABS: HEMATOCRIT 43.5 % (42.0-52.0); HEMOGLOBIN 15.9 G/DL (14.2-18.0); MEAN CORPUSCULAR VOLUME 87 FL (80-99); PLATELET COUNT 319 K/UL (150-450); RED BLOOD COUNT 4.99 M/UL (4.70-6.10); RED CELL DISTRIBUTION WIDTH 11.1 % (11.6-14.8); WHITE BLOOD COUNT 14.2 K/UL (4.8-10.8)
[2020-09-08 15:26] LABS: APPEARANCE,URINE CLEAR; BILIRUBIN, URINE NEGATIVE (NEGATIVE); COLOR,URINE YELLOW; GLUCOSE, URINE (UA) 4+ (NEGATIVE); KETONES,URINE 3+ (NEGATIVE); LEUKOCYTE ESTERASE ,URINE NEGATIVE (NEGATIVE); NITRITE,URINE NEGATIVE (NEGATIVE); PH,URINE 5 (4.5-8.0); PROTEIN,URINE 2+ (NEGATIVE); UROBILINOGEN,URINE NORMAL MG/DL (0.0-1.0)
[2020-09-08 15:27] LABS: BASOPHILS % (AUTO) 0.4 % (0.0-2.0); EOSINOPHILS % (AUTO) 0.1 % (0.0-3.0); LYMPHOCYTES % (AUTO) 9.1 % (20.0-45.0); MONOCYTES % (AUTO) 5.2 % (1.0-10.0); NEUTROPHILS % (AUTO) 85.2 % (45.0-75.0)
[2020-09-08 15:32] LABS: ANION GAP 7 mmol/L (5-15); BLOOD UREA NITROGEN 20 mg/dL (7-18); CALCIUM 8.8 MG/DL (8.5-10.1); CARBON DIOXIDE 32 MMOL/L (21-32); CHLORIDE 93 MMOL/L (98-107); CREATININE 1.2 MG/DL (0.55-1.30); POTASSIUM 4.7 MMOL/L (3.5-5.1); SODIUM 132 MMOL/L (136-145)
[2020-09-08 15:45] LABS: ALANINE AMINOTRANSFERASE 25 U/L (12-78); ALBUMIN 2.8 G/DL (3.4-5.0); ALBUMIN/GLOBULIN RATIO 0.5 (1.0-2.7); ALKALINE PHOSPHATASE 87 U/L (46-116); ASPARTATE AMINO TRANSFERASE 25 U/L (15-37); BILIRUBIN,TOTAL 1.1 MG/DL (0.2-1.0); PHOSPHORUS 3.3 MG/DL (2.5-4.9)
[2020-09-08 15:46] LABS: BILIRUBIN,DIRECT 0.4 MG/DL (0.0-0.3)
--- NOTE | 2020-09-08 15:52 | NUR ---
ED Nurse Note: lactic acid reflex collected and sent to lab.
--- NOTE | 2020-09-08 16:12 | Diagnostic Imaging Report ---
Indication: Cough Technique: XRAY Chest 1v Comparison: 08/31/2020 Findings: Patchy interstitial opacities are suggested bilaterally. No pleural effusion or pneumothorax. No acute osseous abnormality. Heart size and mediastinal contours are within normal limits. Impression: Patchy interstitial opacities concerning for multifocal pneumonia, particularly viral pneumonia.
--- NOTE | 2020-09-08 17:12 | NUR ---
HAND-OFF: Report given to prabha beebe RN.
--- NOTE | 2020-09-08 18:59 | NUR ---
HAND-OFF: Report given to DONNY MALIK.
--- NOTE | 2020-09-08 19:03 | NUR ---
ED Nurse Note: recived care from Javy.
[2020-09-08 19:15] VITALS: BP 144/87
--- NOTE | 2020-09-08 19:15 | NUR ---
ED Nurse Note: ER MD at bedside.
[2020-09-08 19:20] VITALS: BP 150/83
--- NOTE | 2020-09-08 19:43 | NUR ---
ER DISCHARGE NOTE: Patient is cleared to be discharged per ERMD, pt is aox4, on room air, with stable vital signs. pt was given dcinstructions, pt was able to verbalize understanding, pt id band and iv site removed without complications. pt is able to ambulate with steady gait. pt took all belongings. provided food, pt declined placement or tavel assistance. gave information about shelters, winter correction, covid precautions, PT refused mini mental assement test.
== END 2020-09-08 19:20 | disposition home or self-care (01) ==
LOC: EMR 14:50 → CANBEDREQ 19:14 → EMR 19:20
DX: U07.1 COVID-19 (principal); I10 Essential (primary) hypertension; E78.00 Pure hypercholesterolemia, unspecified; E11.9 Type 2 diabetes mellitus without complications; Z79.4 Long term (current) use of insulin
CPT/HCPCS: 36415; 71045; 80053; 81003; 82248; 83605; 83735; 84100; 85025; 93005; 96360; 99284; U0002